=== PATIENT | female | born 1980 | race Caucasian/White ===

== ENCOUNTER → 2016-08-21 | Outpatient (CLI) | payer BC ==
[~2016-08-21] MED LIST: CLAR1TAB2 PO; CYCL10TA PO; FAMO20TA PO; LYRI75CA PO; MAGN400C2 PO; MECL25CH PO; METH1VL IV; MULT1TAB8 PO; NEUR100C PO; PEPC1TAB2 PO; PHEN15CA58 PO; PHEN200T14 PO; PRENTAB55 PO; ROPI1TAB PO; TIZA4CAP3 PO; TRAM50TA2 PO; VESI5TAB PO; VITA100072 PO; VITA200016 PO; VITA400C35 PO; VITA50003 PO; ZOFR4SOL PO
--- NOTE | 2016-08-29 01:16 | ECWPNPC ---
PATIENT NAME: SILAS GUZMÁN : 1980 GENDER: FEMALE VISIT DATE: 08/21/2016 DISCHARGE DATE: 08/21/16 1453 VISIT LOCKED DATE TIME: PHYSICIAN: ASHWINI CHAMPION RESOURCE: ASHWINI CHAMPION REASON FOR APPOINTMENT 1. NECK HISTORY OF PRESENT ILLNESS HISTORY OF PRESENT ILLNESS: HERE FOR F/U OF LEFT NECK PAIN.WAS DOING WELL UNTIL SHE FELL ON ICE 3 WEEKS AGO.REPORTING NEW ONSET OF LBP L>R SINCE FALL.RATING PAIN VAS 7/10. REPORTS NEW ONSET OF LEFT LEG PAIN AND PARATHESIA SINCE FALL.FINDING IT DIFFICULT TO WALK.REPORTS VAGUE EPISODE OF URINE INCONTINENCE X1 AFTER FALL.CURRENTLY USING ZANAFLEX 4 MG TID AND TRAMADOL 50MG Q8H PRN.DISCUSSED TREATMENT OPTIONS. FALL RISK SCREENING: SCREENING :NO FALLS IN THE PAST YEAR CURRENT MEDICATIONS TAKING TYLENOL 500 MG TABLET 2 TABLET NEEDED ORALLY EVERY 6 HRS NEEDED, NOTES: 04-02-16 1000 TAKING VITAMIN B12 1000MCG TABLET 1 TABLET ORALLY ONCE A DAY, NOTES: 04-02-16629 TAKING MECLIZINE HCL 25 MG TABLET 1 TABLET ORALLY EVERY 6HRS NEEDED DIZZINESS, NOTES: 03-31-16 TAKING ROPINIROLE HCL 1 MG TABLET 1 TABLET ORALLY BEFORE BEDTIME, NOTES: 04-01-16 TAKING 28-0.8 MG TABLET 1 ORALLY DAILY, NOTES: 04-02-16629 TAKING PEPCID 40 MG TABLET 1 TABLET ORALLY BID, NOTES: 04-02-16629 TAKING ZOFRAN 4 MG TABLET 1 TAB(S) ORALLY TID PRN, NOTES: 03-31-16 TAKING DICYCLOMINE HCL 20 MG TABLET 1 TABLET ORALLY 3 TIMES A DAY, NOTES: 2 WEEKS AGO TAKING TIZANIDINE HCL 4 MG TABLET 1/2 TO 1 TABLET NEEDED ORALLY Q8H PRN MDD 3, NOTES: 04-02-16 1000 TAKING TRAMADOL HCL 50 MG TABLET 1 TABLET NEEDED ORALLY EVERY 6 HRS PRN MDD2, NOTES: 04-02-16 1000 TAKING CYMBALTA 60 MG CAPSULE DELAYED RELEASE PARTICLES 1 CAPSULE ORALLY ONCE A DAY, NOTES: 04-02-16629 TAKING VITAMIN D-3 5000 UNIT TABLET ORALLY TAKING CETIRIZINE HCL 10 MG TABLET 1 TABLET NEEDED ORALLY ONCE A DAY TAKING SALINE NASAL SPRAY 0.65 % SOLUTION DIRECTED NASALLY FOUR TIMES DAILY DISCONTINUED AMOXICILLIN 500 MG TABLET 2 TABLETS ORALLY ONCE A DAY DISCONTINUED KEFLEX 500 MG CAPSULE 1 CAPSULE ORALLY TWICE A DAY MEDICATION LIST REVIEWED AND RECONCILED WITH THE PATIENT PAST MEDICAL HISTORY CHILDHOOD H/O ASTHMA (NO FLARES SINCE AGE 19) H/O CHOLELITHASIS S/P CHOLECYSTECTOMY H/O KIDNEY STONES OBESITY INFERTILITY H/O VITAMIN B12 DEFICIENCY MARGINAL ULCERS X2 OPTIC NEURITIS BLADDER DYSFUNCTION MISCARRIAGE FIBROMYALGIA ALLERGIES OMEPRAZOLE: ANGIOEDEMA: ALLERGY CLINDAMYCIN HCL: VOMIT, RUBIN IN "POUCH": SIDE EFFECTS SOCIAL HISTORY GENERAL: TOBACCO USE ARE YOU A:NONSMOKER LEARNING BARRIERS / SPECIAL NEEDS ORIENTED TO PLAN OF CARE: PATIENT, PAIN MANAGEMENT PATIENT, ORIENTED TO PLAN OF CARE: PATIENT, PAIN MANAGEMENT PATIENT. NEW PATIENT PAIN DIARY TODAY'S VISITNOTES FROM 0-10, WHAT LEVEL IS YOUR PAIN TODAY?0 PAIN CLINIC PFS, CLERGY, PUBLIC HEALTH REFERRALS PFS REFERRAL NEEDED?NO CLERGY REFERRAL NEEDED?NO PUBLIC HEALTH REFERRAL NEEDED?NO WAS THE PROVIDER NOTIFIED OF ANY PERTINENT INFO?NO PFS REFERRAL NEEDED?NO CLERGY REFERRAL NEEDED?NO PUBLIC HEALTH REFERRAL NEEDED?NO WAS THE PROVIDER NOTIFIED OF ANY PERTINENT INFO?NO REVIEW OF SYSTEMS CONSTITUTIONAL: ANY CHANGE IN YOUR MEDICAL CONDITION? YES FIBROMYALGIA DX'D 07/01/16&NBSP;. RECENT ILLNESS &NBSP;&NBSP; DENIES&NBSP;. CHILLS &NBSP;&NBSP; NO&NBSP;. FEVER &NBSP;&NBSP; NO&NBSP;. WEIGHT LOSS &NBSP;&NBSP; DENIES&NBSP;. INFECTION: DO YOU HAVE NEW INFECTIONS? NO . DO YOU HAVE HISTORY OF MRSA? NO . MUSCULOSKELETAL: ANY NEW PATTERNS OF PAIN OR NUMBNESS? YES PT NOTES NEW PAIN/NUMBNESS LEFT LEG X FEW WKS. . GASTROENTEROLOGY: ANY NEW CHANGE IN BOWEL CONTROL? NO . GENITOURINARY: ANY NEW CHANGE IN BLADDER CONTROL? NO . IS THERE A CHANCE YOU COULD BE ? NO . HEMATOLOGY/LYMPH: DO YOU TAKE ANY BLOOD THINNERS? (FOR EXAMPLE- COUMADIN, PLAVIX, AGGRENOX, PLATEL, PRADAXA, OR XARELTO) NO . WHEN WAS YOUR LAST DOSE? DATE: TIME: . NEUROLOGY: HAVE YOU FALLEN IN THE PAST 6 MONTHS? YES X2/6 MOS. NO ED EVAL. . ANY NEW EXTREMITY NUMBNESS OR WEAKNESS? NO . CARDIOLOGY: DO YOU HAVE A PACEMAKER OR DEFIBRILLATOR? NO . CHEST PAIN DENIES . SHORTNESS OF BREATH DENIES . RESPIRATORY: HAVE YOU BEEN SICK IN THE PAST WEEK? NO . FEVER NO . FLU LIKE SYMPTOMS? NO . COUGH NO, DENIES . SHORTNESS OF BREATH DENIES . INTEGUMENTARY: DO YOU HAVE ANY RASHES OR OPEN SORES? NO . ALLERGIC/IMMUNO: ARE YOU ALLERGIC TO SHELLFISH OR IV DYE? NO . ANY NEW ALLERGIES? NO . PSYCHIATRIC: DO YOU HAVE THOUGHTS OF HURTING YOURSELF OR SOMEONE ELSE? NO . ARE YOU ABUSED, NEGLECTED, OR IN AN UNSAFE ENVIRONMENT? NO . ENDOCRINOLOGY: ARE YOU DIABETIC? NO . OTHER: DO YOU NEED ANY PRESCRIPTIONS? YES TRAMADOL . IF YES, PLEASE LIST: ____ . ANY NEW PROBLEMS WITH YOUR MEDICATIONS? NO . WHEN DID YOU LAST EAT? ____ . WHEN DID YOU LAST DRINK? ____ . WHAT DID YOU LAST DRINK? ____ . NAME OF PERSON DRIVING YOU HOME? ____ . DO YOU HAVE ANY OTHER QUESTIONS OR CONCERNS NO . REVIEWED BY: PROVIDER: ASHWINI VALENZUELA . VITAL SIGNS WT 170 LBS, HT 60 IN, BMI 33.20 INDEX, BP 130/67 MM HG, HR 86 /MIN, RR 16 /MIN, TEMP 98.4 F, OXYGEN SAT % 99, NA INITIALS TL 1406, REVIEWED BY: MLF. EXAMINATION GENERAL EXAMINATION: LUNGS:LUNG SOUNDS ARE CLEAR. HEART:HEART RATE REGULAR. MUSCULOSKELETAL:*, MUSCLE STRENGTH TESTING LOWER EXTREMITIES: 5/5 RIGHT -3/5LEFT, PALPATION: POSITIVE FOR PAIN OVER L/S SPINE. POSITIVE FOR PAIN OVER L/S PARASPINAL L>R.. DIAGNOSTIC: . 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 WITHOUT [id number] PROCEDURE CODES FA211 ESTABILISHED PATIENT [facility] CHARGE DISPOSITION & COMMUNICATION FOLLOW UP SQUEEZE IN F/U NEXT WEEK ELECTRONICALLY SIGNED BY NICOLAS GARCIA ON 08/28/2016 AT 05:10 PM EST DISCLAIMER : THIS IS A VISIT SUMMARY EXTRACTED FROM THE [employer] CHART. IT IS NOT A COPY OF THE [employer] PROGRESS NOTE. GUSTAVOD
== END ==
LOC: M PAIN 14:00
PROVIDERS: ATTEND Nurse Practitioner Family
DX: Z09 Encounter for follow-up examination after completed treatment for conditions other than malignant neoplasm (principal); G89.29 Other chronic pain; M50.20 Other cervical disc displacement, unspecified cervical region; M51.26 Other intervertebral disc displacement, lumbar region; M47.22 Other spondylosis with radiculopathy, cervical region; M79.7 Fibromyalgia; M50.13 Cervical disc disorder with radiculopathy, cervicothoracic region; M47.813 Spondylosis without myelopathy or radiculopathy, cervicothoracic region; M47.814 Spondylosis without myelopathy or radiculopathy, thoracic region; D51.9 Vitamin B12 deficiency anemia, unspecified; E66.9 Obesity, unspecified; Z68.33 Body mass index [BMI] 33.0-33.9, adult; Z88.8 Allergy status to other drugs, medicaments and biological substances; Z79.891 Long term (current) use of opiate analgesic; Z79.899 Other long term (current) drug therapy; Z90.49 Acquired absence of other specified parts of digestive tract; Z98.890 Other specified postprocedural states

== ENCOUNTER → 2016-08-21 | Outpatient (REF) | payer BC ==
[2016-08-21 20:55] LABS: FREE T4 0.96 NG/DL (0.76-1.46)
== END ==
LOC: M SFHCLERA 16:23
PROVIDERS: ATTEND Physician Assistant
DX: R63.5 Abnormal weight gain (principal)

== ENCOUNTER → 2016-08-28 | Outpatient (CLI) | payer BC ==
--- NOTE | 2016-08-29 07:40 | REP ---
MRI LUMBAR SPINE WITHOUT CONTRAST: HISTORY: Back pain. COMPARISON: 11/15/2015 Decreased signal intensity on T2-weighted images is present in the L4-5 and L5-S1 intervertebral discs. The discs are decreased in height. These findings are consistent with disc degeneration. There is no disc bulge or herniation at the L1-2 and L2-3 levels. The nerves exit the neural foramina without compression. A diffuse disc bulge is present at the L3-4 level. There is minimal compression of the thecal sac. The L3 nerves exit the neural foramina without compression. A diffuse disc bulge and small central disc protrusion are present at the L4-5 level. There is minimal compression of the thecal sac. The L4 nerves exit the neural foramina without compression. A diffuse disc bulge and small central disc extrusion are present at the L5-S1 level. The disc extrusion is slightly decreased in size. There is inferior migration of disc material. The disc extrusion abuts the left S1 nerve. There is no thecal sac compression. The L5 nerves exit the neural foramina without compression. The conus medullaris is normal in appearance terminating at the level of the T12-L1 intervertebral disc. Normal signal intensity is present in the lumbar vertebral bodies. IMPRESSION: 1. Diffuse disc bulge at the L3-4 level with minimal thecal sac compression. 2. Diffuse disc bulge and small central disc protrusion at the L4-5 level with minimal thecal sac compression. 3. Diffuse disc bulge and small disc extrusion at the L5-S1 level. The disc extrusion abuts the left S1 nerve. The disc extrusion is slightly decreased in size. There is no other significant change. Signed by Lloyd Graham MD 08/31/2016 08:25 A
== END ==
LOC: M RAD 12:46
PROVIDERS: ATTEND Nurse Practitioner Family
DX: M50.20 Other cervical disc displacement, unspecified cervical region (principal); M51.26 Other intervertebral disc displacement, lumbar region; M51.27 Other intervertebral disc displacement, lumbosacral region

== ENCOUNTER → 2016-09-01 | Outpatient (CLI) | payer BC ==
--- NOTE | 2016-09-02 23:41 | ECWPNPC ---
PATIENT NAME: SILAS GUZMÁN : 1980 GENDER: FEMALE VISIT DATE: 09/01/2016 DISCHARGE DATE: 09/01/16 1551 VISIT LOCKED DATE TIME: PHYSICIAN: ASHWINI CHAMPION RESOURCE: ASHWINI CHAMPION REASON FOR APPOINTMENT 1. FOLLOW UP MRI HISTORY OF PRESENT ILLNESS HISTORY OF PRESENT ILLNESS: HERE TO REVIEW MRI L/S SPINE ORDERED AT LAST VISIT FOR NEW ONSET OF SEVERE LOW BACK PAIN WITH NEW ONSET OF LEFT LEG RADICULAR SYMPTOMS.THIS IS SHOWING L5/S1 DISC PROTRUSION THAT ABUTS L5/S1 NERVE ROUTE ON LEFT SIDE.RATING PAIN VAS 7/10.CONTINUES WITH COMPLAINTS OF CONSTAANT TENDERNESS LEFT LOW BACK WITH INTERMITTENT LEFT POSTERIOR THIGH SHOOTING PAIN.CURRENTLY USING SOMA 350MG AT NIGHT THAT IS HELPFUL FOR SLEEP AND TIZANIDINE AND TRAMADOL PRN DURING DAY WHICH IS EFFECTIVE WITHOUT SIDE EFFECTS.DISCUSSED LESI. FALL RISK SCREENING: SCREENING :NO FALLS IN THE PAST YEAR CURRENT MEDICATIONS TAKING TYLENOL 500 MG TABLET 2 TABLET NEEDED ORALLY EVERY 6 HRS NEEDED TAKING VITAMIN B12 1000MCG TABLET 1 TABLET ORALLY ONCE A DAY TAKING MECLIZINE HCL 25 MG TABLET 1 TABLET ORALLY EVERY 6HRS NEEDED DIZZINESS TAKING ROPINIROLE HCL 1 MG TABLET 1 TABLET ORALLY BEFORE BEDTIME TAKING 28-0.8 MG TABLET 1 ORALLY DAILY TAKING PEPCID 40 MG TABLET 1 TABLET ORALLY BID TAKING ZOFRAN 4 MG TABLET 1 TAB(S) ORALLY TID PRN TAKING DICYCLOMINE HCL 20 MG TABLET 1 TABLET ORALLY 3 TIMES A DAY TAKING VITAMIN D-3 5000 UNIT TABLET ORALLY TAKING CETIRIZINE HCL 10 MG TABLET 1 TABLET NEEDED ORALLY ONCE A DAY TAKING SALINE NASAL SPRAY 0.65 % SOLUTION DIRECTED NASALLY FOUR TIMES DAILY TAKING TIZANIDINE HCL 4 MG TABLET 1/2 TO 1 TABLET NEEDED ORALLY Q8H PRN MDD 3 TAKING TRAMADOL HCL 50 MG TABLET 1 TABLET NEEDED ORALLY EVERY 6 HRS PRN MDD2 TAKING CYMBALTA 60 MG CAPSULE DELAYED RELEASE PARTICLES 1 CAPSULE ORALLY ONCE A DAY TAKING SOMA 350 MG TABLET 1 ORALLY BEFORE BEDTIME MEDICATION LIST REVIEWED AND RECONCILED WITH THE PATIENT PAST MEDICAL HISTORY CHILDHOOD H/O ASTHMA (NO FLARES SINCE AGE 19) H/O CHOLELITHASIS S/P CHOLECYSTECTOMY H/O KIDNEY STONES OBESITY INFERTILITY H/O VITAMIN B12 DEFICIENCY MARGINAL ULCERS X2 OPTIC NEURITIS BLADDER DYSFUNCTION MISCARRIAGE FIBROMYALGIA ALLERGIES OMEPRAZOLE: ANGIOEDEMA: ALLERGY CLINDAMYCIN HCL: VOMIT, RUBIN IN "POUCH": SIDE EFFECTS SOCIAL HISTORY GENERAL: TOBACCO USE ARE YOU A:NONSMOKER LEARNING BARRIERS / SPECIAL NEEDS ORIENTED TO PLAN OF CARE: PATIENT, PAIN MANAGEMENT PATIENT, ORIENTED TO PLAN OF CARE: PATIENT, PAIN MANAGEMENT PATIENT. NEW PATIENT PAIN DIARY TODAY'S VISITNOTES FROM 0-10, WHAT LEVEL IS YOUR PAIN TODAY?0 PAIN CLINIC PFS, CLERGY, PUBLIC HEALTH REFERRALS PFS REFERRAL NEEDED?NO CLERGY REFERRAL NEEDED?NO PUBLIC HEALTH REFERRAL NEEDED?NO WAS THE PROVIDER NOTIFIED OF ANY PERTINENT INFO?NO PFS REFERRAL NEEDED?NO CLERGY REFERRAL NEEDED?NO PUBLIC HEALTH REFERRAL NEEDED?NO WAS THE PROVIDER NOTIFIED OF ANY PERTINENT INFO?NO REVIEW OF SYSTEMS CONSTITUTIONAL: ANY CHANGE IN YOUR MEDICAL CONDITION? NO . CHILLS NO . FEVER NO . INFECTION: DO YOU HAVE NEW INFECTIONS? NO . DO YOU HAVE HISTORY OF MRSA? NO . MUSCULOSKELETAL: ANY NEW PATTERNS OF PAIN OR NUMBNESS? NO . GASTROENTEROLOGY: ANY NEW CHANGE IN BOWEL CONTROL? NO . GENITOURINARY: ANY NEW CHANGE IN BLADDER CONTROL? NO . IS THERE A CHANCE YOU COULD BE ? NO . HEMATOLOGY/LYMPH: DO YOU TAKE ANY BLOOD THINNERS? (FOR EXAMPLE- COUMADIN, PLAVIX, AGGRENOX, PLATEL, PRADAXA, OR XARELTO) NO . WHEN WAS YOUR LAST DOSE? DATE: TIME: . NEUROLOGY: HAVE YOU FALLEN IN THE PAST 6 MONTHS? NO . ANY NEW EXTREMITY NUMBNESS OR WEAKNESS? NO . CARDIOLOGY: DO YOU HAVE A PACEMAKER OR DEFIBRILLATOR? NO . RESPIRATORY: HAVE YOU BEEN SICK IN THE PAST WEEK? NO . FEVER NO . FLU LIKE SYMPTOMS? NO . COUGH NO . INTEGUMENTARY: DO YOU HAVE ANY RASHES OR OPEN SORES? NO . ALLERGIC/IMMUNO: ARE YOU ALLERGIC TO SHELLFISH OR IV DYE? NO . ANY NEW ALLERGIES? NO . PSYCHIATRIC: DO YOU HAVE THOUGHTS OF HURTING YOURSELF OR SOMEONE ELSE? NO . ARE YOU ABUSED, NEGLECTED, OR IN AN UNSAFE ENVIRONMENT? NO . ENDOCRINOLOGY: ARE YOU DIABETIC? NO . OTHER: DO YOU NEED ANY PRESCRIPTIONS? NO . IF YES, PLEASE LIST: ____ . ANY NEW PROBLEMS WITH YOUR MEDICATIONS? NO . WHEN DID YOU LAST EAT? ____ . WHEN DID YOU LAST DRINK? ____ . WHAT DID YOU LAST DRINK? ____ . NAME OF PERSON DRIVING YOU HOME? ____ . DO YOU HAVE ANY OTHER QUESTIONS OR CONCERNS NO . REVIEWED BY: PROVIDER: ASHWINI VALENZUELA . VITAL SIGNS WT 177 LBS, HT 60 IN, BMI 34.56 INDEX, BP 107/68 MM HG, HR 86 /MIN, RR 16 /MIN, TEMP 97.2 F, OXYGEN SAT % 100, SAFE IN ENV? (Y/N) YES, NA INITIALS TL 1509, REVIEWED BY: KG. EXAMINATION GENERAL EXAMINATION: LUNGS:LUNG SOUNDS ARE CLEAR. HEART:HEART RATE REGULAR. MUSCULOSKELETAL:*, MUSCLE STRENGTH TESTING LOWER EXTREMITIES: 5/5 RIGHT -3/5LEFT, PALPATION: POSITIVE FOR PAIN OVER L/S SPINE. POSITIVE FOR PAIN OVER L/S PARASPINAL L>R.SPECIFIC POINT TENDERNESS OVER LEFT SIJ.. DIAGNOSTIC:MRI L/S SPINE 08-28-16-REVIEWED.. ASSESSMENTS PROTRUDED LUMBAR DISC - M51.26 (PRIMARY) RADICULAR PAIN OF LEFT LOWER EXTREMITY - M54.10 TREATMENT PROTRUDED LUMBAR DISC CONTINUE TIZANIDINE HCL TABLET, 4 MG, 1/2 TO 1 TABLET NEEDED, ORALLY, Q8H PRN MDD 3 CONTINUE TRAMADOL HCL TABLET, 50 MG, 1 TABLET NEEDED, ORALLY, EVERY 6 HRS PRN MDD2 CONTINUE SOMA TABLET, 350 MG, 1, ORALLY, BEFORE BEDTIME CAUDAL/LUMBAR EPIDURAL PROCEDURE CODES FA211 ESTABILISHED PATIENT [facility] FACILITY CHARGE DISPOSITION & COMMUNICATION FOLLOW UP 2WK POST (REASON: LESI L4/5-L5/S1) ELECTRONICALLY SIGNED BY NICOLAS GARCIA ON 09/02/2016 AT 01:56 PM EST DISCLAIMER : THIS IS A VISIT SUMMARY EXTRACTED FROM THE [employer] CHART. IT IS NOT A COPY OF THE [employer] PROGRESS NOTE. MTDD
== END ==
LOC: M PAIN 15:00
PROVIDERS: ATTEND Nurse Practitioner Family
DX: Z09 Encounter for follow-up examination after completed treatment for conditions other than malignant neoplasm (principal); G89.29 Other chronic pain; M51.26 Other intervertebral disc displacement, lumbar region; E53.8 Deficiency of other specified B group vitamins; M79.7 Fibromyalgia; E66.9 Obesity, unspecified; Z68.34 Body mass index [BMI] 34.0-34.9, adult; Z88.8 Allergy status to other drugs, medicaments and biological substances; Z88.1 Allergy status to other antibiotic agents; Z79.891 Long term (current) use of opiate analgesic; Z79.899 Other long term (current) drug therapy; Z90.49 Acquired absence of other specified parts of digestive tract

== ENCOUNTER → 2016-09-10 | Outpatient (CLI) | payer BC ==
[~2016-09-10] MED LIST changes: +BUPIVACAINE HCL 0.25% 30 ML VIAL As Ordered ONE; +ISOVUE-M 300 61% 15ML VIAL (Q9967) As Ordered ONE; +LIDOCAINE 1% SDV INJ 30 ML VIAL As Ordered ONE; +TRIAMCINOLONE ACETONIDE SUSP 40 MG/ML VIAL (J3301) As Ordered ONE; +diazePAM 5 MG TAB As Ordered ONE; +methylPREDNISolone SUSP 40 MG/ML (DEPO-medrol) VIAL (J1030) As Ordered ONE; +oxyCODONE 5MG TAB As Ordered ONE
--- NOTE | 2016-09-11 18:57 | REP ---
FLUOROSCOPIC GUIDED SPINAL INJECTION: REASON: Pain. There is a needle seen at the L5-S1 level just to the right of midline. Fluoroscopy was 9 seconds. Signed by Demarcus Moser DO 09/11/2016 07:05 P
--- NOTE | 2016-09-19 23:18 | ECWPNPC ---
PATIENT NAME: SILAS GUZMÁN : 1980 GENDER: FEMALE VISIT DATE: 09/10/2016 DISCHARGE DATE: 09/10/16 1451 VISIT LOCKED DATE TIME: PHYSICIAN: CHRISTIANE DARBY RESOURCE: CHRISTIANE DARBY REASON FOR APPOINTMENT 1. SIJ HISTORY OF PRESENT ILLNESS HISTORY OF PRESENT ILLNESS: PAIN THE PATIENT DESCRIBES THE PAIN... FALL RISK SCREENING: SCREENING :NO FALLS IN THE PAST YEAR CURRENT MEDICATIONS TAKING TYLENOL 500 MG TABLET 2 TABLET NEEDED ORALLY EVERY 6 HRS NEEDED, NOTES: 09-10-16799 TAKING VITAMIN B12 1000MCG TABLET 1 TABLET ORALLY ONCE A DAY, NOTES: 09-10-16599 TAKING MECLIZINE HCL 25 MG TABLET 1 TABLET ORALLY EVERY 6HRS NEEDED DIZZINESS, NOTES: NONE TAKING ROPINIROLE HCL 1 MG TABLET 1 TABLET ORALLY BEFORE BEDTIME, NOTES: 09-09-162199 TAKING 28-0.8 MG TABLET 1 ORALLY DAILY, NOTES: 09-10-16599 TAKING PEPCID 40 MG TABLET 1 TABLET ORALLY BID, NOTES: 09-10-16599 TAKING ZOFRAN 4 MG TABLET 1 TAB(S) ORALLY TID PRN, NOTES: WEEK TAKING DICYCLOMINE HCL 20 MG TABLET 1 TABLET ORALLY 3 TIMES A DAY, NOTES: WEEK TAKING VITAMIN D-3 5000 UNIT TABLET ORALLY , NOTES: 09-10-16599 TAKING CETIRIZINE HCL 10 MG TABLET 1 TABLET NEEDED ORALLY ONCE A DAY, NOTES: WEEK TAKING SALINE NASAL SPRAY 0.65 % SOLUTION DIRECTED NASALLY FOUR TIMES DAILY, NOTES: NONE TAKING CYMBALTA 60 MG CAPSULE DELAYED RELEASE PARTICLES 1 CAPSULE ORALLY ONCE A DAY, NOTES: 09-09-162099 TAKING TIZANIDINE HCL 4 MG TABLET 1/2 TO 1 TABLET NEEDED ORALLY Q8H PRN MDD 3, NOTES: 09-10-16799 TAKING TRAMADOL HCL 50 MG TABLET 1 TABLET NEEDED ORALLY EVERY 6 HRS PRN MDD2, NOTES: 09-10-16799 TAKING SOMA 350 MG TABLET 1 ORALLY BEFORE BEDTIME, NOTES: 09-09-162099 MEDICATION LIST REVIEWED AND RECONCILED WITH THE PATIENT PAST MEDICAL HISTORY CHILDHOOD H/O ASTHMA (NO FLARES SINCE AGE 19) H/O CHOLELITHASIS S/P CHOLECYSTECTOMY H/O KIDNEY STONES OBESITY INFERTILITY H/O VITAMIN B12 DEFICIENCY MARGINAL ULCERS X2 OPTIC NEURITIS BLADDER DYSFUNCTION MISCARRIAGE FIBROMYALGIA ALLERGIES OMEPRAZOLE: ANGIOEDEMA: ALLERGY CLINDAMYCIN HCL: VOMIT, RUBIN IN "POUCH": SIDE EFFECTS SOCIAL HISTORY GENERAL: TOBACCO USE ARE YOU A:NONSMOKER LEARNING BARRIERS / SPECIAL NEEDS ORIENTED TO PLAN OF CARE: PATIENT, PAIN MANAGEMENT PATIENT, ORIENTED TO PLAN OF CARE: PATIENT, PAIN MANAGEMENT PATIENT. NEW PATIENT PAIN DIARY TODAY'S VISITNOTES FROM 0-10, WHAT LEVEL IS YOUR PAIN TODAY?0 PAIN CLINIC PFS, CLERGY, PUBLIC HEALTH REFERRALS PFS REFERRAL NEEDED?NO CLERGY REFERRAL NEEDED?NO PUBLIC HEALTH REFERRAL NEEDED?NO WAS THE PROVIDER NOTIFIED OF ANY PERTINENT INFO?NO PFS REFERRAL NEEDED?NO CLERGY REFERRAL NEEDED?NO PUBLIC HEALTH REFERRAL NEEDED?NO WAS THE PROVIDER NOTIFIED OF ANY PERTINENT INFO?NO REVIEW OF SYSTEMS CONSTITUTIONAL: ANY CHANGE IN YOUR MEDICAL CONDITION? NO . CHILLS NO . FEVER NO . INFECTION: DO YOU HAVE NEW INFECTIONS? NO . DO YOU HAVE HISTORY OF MRSA? NO . MUSCULOSKELETAL: ANY NEW PATTERNS OF PAIN OR NUMBNESS? NO . GASTROENTEROLOGY: ANY NEW CHANGE IN BOWEL CONTROL? NO . GENITOURINARY: ANY NEW CHANGE IN BLADDER CONTROL? NO . IS THERE A CHANCE YOU COULD BE ? NO . HEMATOLOGY/LYMPH: DO YOU TAKE ANY BLOOD THINNERS? (FOR EXAMPLE- COUMADIN, PLAVIX, AGGRENOX, PLATEL, PRADAXA, OR XARELTO) NO . WHEN WAS YOUR LAST DOSE? DATE: TIME: . NEUROLOGY: HAVE YOU FALLEN IN THE PAST 6 MONTHS? YES . ANY NEW EXTREMITY NUMBNESS OR WEAKNESS? NO . CARDIOLOGY: DO YOU HAVE A PACEMAKER OR DEFIBRILLATOR? NO . RESPIRATORY: HAVE YOU BEEN SICK IN THE PAST WEEK? NO . FEVER NO . FLU LIKE SYMPTOMS? NO . COUGH NO . INTEGUMENTARY: DO YOU HAVE ANY RASHES OR OPEN SORES? NO . ALLERGIC/IMMUNO: ARE YOU ALLERGIC TO SHELLFISH OR IV DYE? NO . ANY NEW ALLERGIES? NO . PSYCHIATRIC: DO YOU HAVE THOUGHTS OF HURTING YOURSELF OR SOMEONE ELSE? NO . ARE YOU ABUSED, NEGLECTED, OR IN AN UNSAFE ENVIRONMENT? NO . ENDOCRINOLOGY: ARE YOU DIABETIC? NO . OTHER: DO YOU NEED ANY PRESCRIPTIONS? NO . IF YES, PLEASE LIST: ____ . ANY NEW PROBLEMS WITH YOUR MEDICATIONS? NO . WHEN DID YOU LAST EAT? 09-09-161999 . WHEN DID YOU LAST DRINK? 09-10-16 1100 . WHAT DID YOU LAST DRINK? BLACK COFFEE . NAME OF PERSON DRIVING YOU HOME? CHELSI GUZMÁN . DO YOU HAVE ANY OTHER QUESTIONS OR CONCERNS NO . REVIEWED BY: PROVIDER: . VITAL SIGNS WT 177 LBS, HT 60 IN, BMI 34.56 INDEX, BP 106/59 MM HG, HR 79 /MIN, RR 16 /MIN, TEMP 97.6 F, OXYGEN SAT % 96, NA INITIALS TL 1304, REVIEWED BY: CM. ASSESSMENTS INTERVERTEBRAL DISC DISORDERS WITH RADICULOPATHY, LUMBOSACRAL REGION - M51.17 (PRIMARY) PROCEDURES PRE PROCEDURE DIAGNOSIS LUMBOSACRAL RADICULOPATHY, LUMBOSACRAL DISC DISORDER WITH RADICULOPATHY POST PROCEDURE DIAGNOSIS LUMBOSACRAL RADICULOPATHY , LUMBOSACRAL DISC DISORDER WITH RADICULOPATHY PROCEDURE L5-S1 EPIDURAL STEROID INJECTION UNDER FLUOROSCOPIC GUIDANCE SURGEON DR. CHRISTIANE DARBY DIRECTOR ERP NONE ANESTHESIA LOCAL PRE PROCEDURE NOTE THE PATIENT HAS A HISTORY OF CHRONIC LOW BACK PAIN. I EVALUATE THE PATIENT AND REVIEWED THE CHART. I WENT OVER THE RISKS, ALTERNATIVES, AND BENEFITS ASSOCIATED WITH THIS PROCEDURE. THE PATIENT WOULD LIKE TO PROCEED AND GIVE CONSENT TO PERFORMED THE PROCEDURE. THE PATIENT DENIES UNEXPLAINABLE WEIGHT LOSS, FEVER, CHILLS, OR NEW CHANGES IN URINARY OR BOWEL CONTROL. DESCRIPTION OF PROCEDURE THE PATIENT WAS BROUGHT TO THE PROCEDURE ROOM AND PLACED IN THE PRONE POSITION. THE LUMBOSACRAL AREA WAS CLEANED WITH BETADINE SOLUTION AND DRAPED ASEPTICALLY. THE PROCEDURE WAS DONE UNDER STERILE CONDITIONS. I CHECKED LATERALITY AND THE LEVEL WHERE THE PROCEDURE WAS GOING TO BE PERFORMED WITH THE PATIENT AND THE SUPPORTING STAFF AT THE MOMENT OF THE TIME OUT IN THE PROCEDURE ROOM. UNDER FLUOROSCOPIC GUIDANCE, THE TARGET POINT WAS SELECTED AT THE INTERLAMINAR LEVEL OF L5-S1. LIDOCAINE WAS USED TO NUMB THE SKIN AND THE SUBCUTANEOUS TISSUE BELOW IT. EPIDURAL TUOHY NEEDLE, 17-GAUGE, WAS ADVANCED UNDER FLUOROSCOPIC GUIDANCE AND FOLLOWING PATIENT FEEDBACK UNTIL THE EPIDURAL SPACE WAS REACHED, 7 CM DEEP INTO THE SKIN BY THE LOSS OF RESISTANCE TECHNIQUE. ISOVUE M DYE 30%, 0.25 ML, WAS INJECTED SHOWING ADEQUATE SPREAD OF THE DYE. THEN, A SOLUTION OF 3 ML OF NORMAL SALINE WITH DEPO-MEDROL 60 MG WAS INJECTED SLOWLY FOLLOWING PATIENT FEEDBACK. THERE WAS NO EVIDENCE OF BLOOD, PARESTHESIA OR CEREBROSPINAL FLUID DURING THE PROCEDURE. THE PATIENT WAS SENT TO THE RECOVERY ROOM. THE PATIENT WAS MOVING THE EXTREMITIES AND DOING WELL. THERE WAS NO COMPLICATION DURING THE PROCEDURE. FLUOROSCOPY TIME WAS 9 SECONDS. POST PROCEDURE NOTE THE PATIENT WILL BE SEEN IN A FOLLOW UP IN THE NEXT FEW WEEKS. INSTRUCTIONS WERE GIVEN, QUESTIONS WERE ANSWERED, AND THE PATIENT EXPRESSED UNDERSTANDING AND AGREES WITH THE PLAN. INSTRUCTIONS WERE GIVEN, QUESTIONS WERE ANSWERED, PATIENT REPORTS UNDERSTANDING AND AGREES WITH THE PLAN. I, YOHAN MANZANO, DOCUMENTED THE ABOVE INFORMATION ACTING A SCRIBE FOR DR. DARBY. I HAVE REVIEWED THE ABOVE DOCUMENT, WRITTEN BY YOHAN MANZANO SCRIBE AND I VERIFY THAT IT IS ACCURATE. DIAGNOSTIC IMAGING [facility] FLUORO GUIDE SPINE INJECTION (PAIN)[id number] PROCEDURE CODES 42127 LUMBAR/SACRAL W/ IMAGING 6045F RADXPS IN END [id number] PXD DISPOSITION & COMMUNICATION FOLLOW UP 3 WEEKS ELECTRONICALLY SIGNED BY CHRISTIANE DARBY MD ON 09/19/2016 AT 08:40 PM EDT DISCLAIMER : THIS IS A VISIT SUMMARY EXTRACTED FROM THE [employer] CHART. IT IS NOT A COPY OF THE [employer] PROGRESS NOTE. MTDD
== END ==
LOC: M PAIN 13:00
PROVIDERS: ATTEND Anesthesiology
DX: G89.29 Other chronic pain (principal); M51.17 Intervertebral disc disorders with radiculopathy, lumbosacral region; Z90.49 Acquired absence of other specified parts of digestive tract; E66.9 Obesity, unspecified; Z68.34 Body mass index [BMI] 34.0-34.9, adult; M79.7 Fibromyalgia; Z88.1 Allergy status to other antibiotic agents; Z88.8 Allergy status to other drugs, medicaments and biological substances; Z79.891 Long term (current) use of opiate analgesic; Z79.899 Other long term (current) drug therapy
CPT/HCPCS: 62323; J1030; Q9967

== ENCOUNTER → 2016-09-24 | Outpatient (CLI) | payer BC ==
[~2016-09-24] MED LIST changes: -BUPIVACAINE HCL 0.25% 30 ML VIAL As Ordered ONE; -ISOVUE-M 300 61% 15ML VIAL (Q9967) As Ordered ONE; -LIDOCAINE 1% SDV INJ 30 ML VIAL As Ordered ONE; -TRIAMCINOLONE ACETONIDE SUSP 40 MG/ML VIAL (J3301) As Ordered ONE; -diazePAM 5 MG TAB As Ordered ONE; -methylPREDNISolone SUSP 40 MG/ML (DEPO-medrol) VIAL (J1030) As Ordered ONE; -oxyCODONE 5MG TAB As Ordered ONE
--- NOTE | 2016-09-30 02:17 | ECWPNPC ---
PATIENT NAME: SILAS GUZMÁN : 1980 GENDER: FEMALE VISIT DATE: 09/24/2016 DISCHARGE DATE: 09/24/16 1609 VISIT LOCKED DATE TIME: PHYSICIAN: ASHWINI CHAMPION RESOURCE: ASHWINI CHAMPION REASON FOR APPOINTMENT 1. POST PRODEDURE HISTORY OF PRESENT ILLNESS HISTORY OF PRESENT ILLNESS: HERE FOR POST PROCEDURE F/U.HAD LESI ON 09-10-16.REPORTS NO RELIEF POST PROCEDURE.RATING PAIN VAS 7/10.PAIN IS ENTIRE BACK AND LEFT LEG.DESCRIBES PAIN CONSTANT BURNING AND SHARP PAIN.IN OBVIOUS DISCOMFORT.WALKING WITH ANTALGIC GAIT FAVORING LEFT LEG.DENIES ANYMORE EPISODES OF URINARY OR BOWEL INCONTINENCE. PAIN THE PATIENT DESCRIBES THE PAIN... FALL RISK SCREENING: SCREENING :NO FALLS IN THE PAST YEAR CURRENT MEDICATIONS TAKING TYLENOL 500 MG TABLET 2 TABLET NEEDED ORALLY EVERY 6 HRS NEEDED TAKING VITAMIN B12 1000MCG TABLET 1 TABLET ORALLY ONCE A DAY TAKING MECLIZINE HCL 25 MG TABLET 1 TABLET ORALLY EVERY 6HRS NEEDED DIZZINESS TAKING ROPINIROLE HCL 1 MG TABLET 1 TABLET ORALLY BEFORE BEDTIME TAKING 28-0.8 MG TABLET 1 ORALLY DAILY TAKING PEPCID 40 MG TABLET 1 TABLET ORALLY BID TAKING ZOFRAN 4 MG TABLET 1 TAB(S) ORALLY TID PRN TAKING DICYCLOMINE HCL 20 MG TABLET 1 TABLET ORALLY 3 TIMES A DAY TAKING VITAMIN D-3 5000 UNIT TABLET ORALLY DAILY TAKING CETIRIZINE HCL 10 MG TABLET 1 TABLET NEEDED ORALLY ONCE A DAY TAKING CYMBALTA 60 MG CAPSULE DELAYED RELEASE PARTICLES 1 CAPSULE ORALLY ONCE A DAY TAKING TIZANIDINE HCL 4 MG TABLET 1/2 TO 1 TABLET NEEDED ORALLY Q8H PRN MDD 3 TAKING TRAMADOL HCL 50 MG TABLET 1 TABLET NEEDED ORALLY EVERY 6 HRS PRN MDD2 TAKING SOMA 350 MG TABLET 1 ORALLY BEFORE BEDTIME TAKING NORCO 5-325 MG TABLET 1 TABLET NEEDED ORALLY EVERY 6 HRS MDD=4 TAKING GABAPENTIN 300 MG CAPSULE 1 TABLET ORALLY THREE TIMES A DAY NOT-TAKING SALINE NASAL SPRAY 0.65 % SOLUTION DIRECTED NASALLY FOUR TIMES DAILY, NOTES: NONE NOT-TAKING PREDNISONE 10 MG TABLET 3 TABLET ORALLY ONCE A DAY MEDICATION LIST REVIEWED AND RECONCILED WITH THE PATIENT PAST MEDICAL HISTORY CHILDHOOD H/O ASTHMA (NO FLARES SINCE AGE 19) H/O CHOLELITHASIS S/P CHOLECYSTECTOMY H/O KIDNEY STONES OBESITY INFERTILITY H/O VITAMIN B12 DEFICIENCY MARGINAL ULCERS X2 OPTIC NEURITIS BLADDER DYSFUNCTION MISCARRIAGE FIBROMYALGIA ALLERGIES OMEPRAZOLE: ANGIOEDEMA: ALLERGY CLINDAMYCIN HCL: VOMIT, RUBIN IN "POUCH": SIDE EFFECTS REVIEW OF SYSTEMS CONSTITUTIONAL: ANY CHANGE IN YOUR MEDICAL CONDITION? NO . CHILLS NO . FEVER NO . INFECTION: DO YOU HAVE NEW INFECTIONS? NO . DO YOU HAVE HISTORY OF MRSA? NO . MUSCULOSKELETAL: ANY NEW PATTERNS OF PAIN OR NUMBNESS? YES, PAIN HAS RADIATED TO RIGHT LOW BACK AND PAIN HAS INTENSIFIED DOWN THE LEFT LEG WITH SPASMS . GASTROENTEROLOGY: ANY NEW CHANGE IN BOWEL CONTROL? NO . GENITOURINARY: ANY NEW CHANGE IN BLADDER CONTROL? NO . IS THERE A CHANCE YOU COULD BE ? NO . HEMATOLOGY/LYMPH: DO YOU TAKE ANY BLOOD THINNERS? (FOR EXAMPLE- COUMADIN, PLAVIX, AGGRENOX, PLATEL, PRADAXA, OR XARELTO) NO . WHEN WAS YOUR LAST DOSE? DATE: TIME: . NEUROLOGY: HAVE YOU FALLEN IN THE PAST 6 MONTHS? YES . ANY NEW EXTREMITY NUMBNESS OR WEAKNESS? NO . CARDIOLOGY: DO YOU HAVE A PACEMAKER OR DEFIBRILLATOR? NO . RESPIRATORY: HAVE YOU BEEN SICK IN THE PAST WEEK? NO . FEVER NO . FLU LIKE SYMPTOMS? NO . COUGH NO . INTEGUMENTARY: DO YOU HAVE ANY RASHES OR OPEN SORES? NO . ALLERGIC/IMMUNO: ARE YOU ALLERGIC TO SHELLFISH OR IV DYE? NO . ANY NEW ALLERGIES? NO . PSYCHIATRIC: DO YOU HAVE THOUGHTS OF HURTING YOURSELF OR SOMEONE ELSE? NO . ARE YOU ABUSED, NEGLECTED, OR IN AN UNSAFE ENVIRONMENT? NO . ENDOCRINOLOGY: ARE YOU DIABETIC? NO . OTHER: DO YOU NEED ANY PRESCRIPTIONS? NO . IF YES, PLEASE LIST: ____ . ANY NEW PROBLEMS WITH YOUR MEDICATIONS? NO . WHEN DID YOU LAST EAT? ____ . WHEN DID YOU LAST DRINK? ____ . WHAT DID YOU LAST DRINK? ____ . NAME OF PERSON DRIVING YOU HOME? ____ . DO YOU HAVE ANY OTHER QUESTIONS OR CONCERNS NO . REVIEWED BY: PROVIDER: ASHWINI VALENZUELA . VITAL SIGNS WT 179.4 LBS, HT 60 IN, BMI 35.03 INDEX, BP 129/63 MM HG, HR 87 /MIN, RR 18 /MIN, TEMP 98.8 F, OXYGEN SAT % 99%, NA INITIALS SC 15:26, REVIEWED BY: CS. EXAMINATION GENERAL EXAMINATION: LUNGS:LUNG SOUNDS ARE CLEAR. HEART:HEART RATE REGULAR. MUSCULOSKELETAL:*, MUSCLE STRENGTH TESTING LOWER EXTREMITIES: 5/5 RIGHT -3/5LEFT, PALPATION: POSITIVE FOR PAIN OVER L/S SPINE. POSITIVE FOR PAIN OVER L/S PARASPINAL L>R.SPECIFIC POINT TENDERNESS OVER LEFT SIJ.. DIAGNOSTIC:MRI L/S SPINE 08-28-16-REVIEWED.. ASSESSMENTS PROTRUDED LUMBAR DISC - M51.26 (PRIMARY) RADICULAR PAIN OF LEFT LOWER EXTREMITY - M54.10 TREATMENT PROTRUDED LUMBAR DISC REFERRAL TO:[facility] (P)NEUROLOGICAL SURGERY REASON:STST REFERRAL L4/5-L5/S1 DISC EXTRUSION W SEVERE LEFT S1 NEUROPATHY-AGGREVATED AFTER LESI 09-10-16 PROCEDURE CODES FA211 ESTABILISHED PATIENT [facility] FACILITY CHARGE DISPOSITION & COMMUNICATION FOLLOW UP 4 WEEKS (REASON: REFER [facility] DR [facility]) ELECTRONICALLY SIGNED BY NICOLAS GARCIA ON 09/29/2016 AT 07:02 PM EDT DISCLAIMER : THIS IS A VISIT SUMMARY EXTRACTED FROM THE [employer] CHART. IT IS NOT A COPY OF THE [employer] PROGRESS NOTE. MTDD
== END ==
LOC: M PAIN 15:00
PROVIDERS: ATTEND Nurse Practitioner Family
DX: Z09 Encounter for follow-up examination after completed treatment for conditions other than malignant neoplasm (principal); G89.29 Other chronic pain; M51.26 Other intervertebral disc displacement, lumbar region; M54.10 Radiculopathy, site unspecified; E66.9 Obesity, unspecified; Z68.35 Body mass index [BMI] 35.0-35.9, adult; Z88.8 Allergy status to other drugs, medicaments and biological substances; Z79.891 Long term (current) use of opiate analgesic; Z79.899 Other long term (current) drug therapy; Z86.2 Personal history of diseases of the blood and blood-forming organs and certain disorders involving the immune mechanism; Z90.49 Acquired absence of other specified parts of digestive tract

== ENCOUNTER → 2016-10-23 | Outpatient (CLI) | payer BC ==
--- NOTE | 2016-11-03 01:36 | ECWPNPC ---
PATIENT NAME: SILAS GUZMÁN : 1980 GENDER: FEMALE VISIT DATE: 10/23/2016 DISCHARGE DATE: 10/23/16 1620 VISIT LOCKED DATE TIME: PHYSICIAN: ASHWINI CHAMPION RESOURCE: ASHWINI CHAMPION REASON FOR APPOINTMENT 1. NECK AND BACK HISTORY OF PRESENT ILLNESS HISTORY OF PRESENT ILLNESS: HERE FOR F/U.HAD LESI ON 09-10-16.REPORTED NO RELIEF POST PROCEDURE.RATING PAIN VAS 6/10.PAIN IS ENTIRE BACK AND LEFT LEG.DESCRIBES PAIN CONSTANT BURNING AND SHARP PAIN.REPORTING THAT NECK PAIN WITH RADIATION INTO BILATERAL ARMSL>R HAS RETURNED. HAS RESPONDED TO CERVICAL FACET BLOCKS IN PAST.DENIES ANYMORE EPISODES OF URINARY OR BOWEL INCONTINENCE.SAW CHELSI OSPINA RECENTLY WHO IS RECOMMENDING [facility] INJETION.SAW DR. DOROTEO COLEMAN-NEUROLOGY WHO IS REFERRING TO [facility].CHIEF AREA OF PAIN IS NECK . PAIN THE PATIENT DESCRIBES THE PAIN... CURRENT MEDICATIONS TAKING TYLENOL 500 MG TABLET 2 TABLET NEEDED ORALLY EVERY 6 HRS NEEDED TAKING VITAMIN B12 1000MCG TABLET 1 TABLET ORALLY ONCE A DAY TAKING MECLIZINE HCL 25 MG TABLET 1 TABLET ORALLY EVERY 6HRS NEEDED DIZZINESS TAKING ROPINIROLE HCL 1 MG TABLET 1 TABLET ORALLY BEFORE BEDTIME TAKING 28-0.8 MG TABLET 1 ORALLY DAILY TAKING PEPCID 40 MG TABLET 1 TABLET ORALLY BID TAKING ZOFRAN 4 MG TABLET 1 TAB(S) ORALLY TID PRN TAKING DICYCLOMINE HCL 20 MG TABLET 1 TABLET ORALLY 3 TIMES A DAY TAKING VITAMIN D-3 5000 UNIT TABLET ORALLY DAILY TAKING CETIRIZINE HCL 10 MG TABLET 1 TABLET NEEDED ORALLY ONCE A DAY TAKING CYMBALTA 60 MG CAPSULE DELAYED RELEASE PARTICLES 1 CAPSULE ORALLY ONCE A DAY TAKING TIZANIDINE HCL 4 MG TABLET 1/2 TO 1 TABLET NEEDED ORALLY Q8H PRN MDD 3 TAKING TRAMADOL HCL 50 MG TABLET 1 TABLET NEEDED ORALLY EVERY 6 HRS PRN MDD2 TAKING SOMA 350 MG TABLET 1 ORALLY BEFORE BEDTIME TAKING NORCO 5-325 MG TABLET 1 TABLET NEEDED ORALLY EVERY 6 HRS MDD=4 TAKING GABAPENTIN 300 MG CAPSULE 1 TABLET ORALLY THREE TIMES A DAY NOT-TAKING SALINE NASAL SPRAY 0.65 % SOLUTION DIRECTED NASALLY FOUR TIMES DAILY, NOTES: NONE NOT-TAKING PREDNISONE 10 MG TABLET 3 TABLET ORALLY ONCE A DAY MEDICATION LIST REVIEWED AND RECONCILED WITH THE PATIENT PAST MEDICAL HISTORY CHILDHOOD H/O ASTHMA (NO FLARES SINCE AGE 19) H/O CHOLELITHASIS S/P CHOLECYSTECTOMY H/O KIDNEY STONES OBESITY INFERTILITY H/O VITAMIN B12 DEFICIENCY MARGINAL ULCERS X2 OPTIC NEURITIS BLADDER DYSFUNCTION MISCARRIAGE FIBROMYALGIA ALLERGIES OMEPRAZOLE: ANGIOEDEMA: ALLERGY CLINDAMYCIN HCL: VOMIT, RUBIN IN "POUCH": SIDE EFFECTS VITAL SIGNS WT 175 LBS, HT 60 IN, BMI 34.17 INDEX, BP 125/75 MM HG, HR 105 /MIN, RR 16 /MIN, TEMP 99.1 F, OXYGEN SAT % 100%, NA INITIALS SC 15:10. EXAMINATION GENERAL EXAMINATION: GENERAL APPEARANCE:NO ACUTE DISTRESS, WELL NOURISHED AND HYDRATED. PSYCHAPPROPRIATE MOOD AND AFFECT . HEENT:HEAD: NORMOCEPHALIC, ATRAUMATIC. EYES: PUPILS ARE EQUAL AND REACTIVE TO LIGHT. SCLERA ANICTERIC. CONJUNCTIVA PINK AND NOT INFLAMED. EARS: AURICLES NORMALLY PLACED. EACS CLEAR AND NOT INFLAMED BILATERALLY. TMS HARDEN WITH NO FLUID NOTED BEHIND THEM. NOSE: SYMMETRIC. NO NASAL MUCOSAL EDEMA AND/OR ERYTHEMA. NO NASAL DISCHARGE.. FACE:UNREMARKABLE. ORAL CAVITY:NORMAL. NECK:NO LYMPHADENOPATHY, SUPPLE, NO THYROMEGALLY, . LUNGS:CLEAR TO AUSCULTATION BILATERALLY, NO WHEEZES, RHONCHI, RALES. HEART:NO MURMURS, REGULAR RATE AND RHYTHM. EXTREMITIES:NO CLUBBING, NO EDEMA. DIAGNOSTIC DATA-MRI [id number]. CERVICAL SPINE/NECK: RANGE OF MOTION OF NECK:FULL ROJM NECK WITH COMPLAINTS OF INCREASED NECK PAIN W LATERAL ROTATION.. REFLEXES:2 PLUS BILATERALLY. SENSATIONS:NORMAL BILATERALLY. VERTEBRAL SPINE TENDERNESS:PRESENT ON CERVICAL SPINE. PARASPINAL MUSCLE SPASM:PRESENT ON LEFT > RIGHT SIDE. TRAPEZIUS TENDERNESS:PRESENT ON LEFT > RIGHT SIDE. 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 IT IS NOT A COPY OF THE [employer] PROGRESS NOTE. MTDD
== END ==
LOC: M PAIN 15:00
PROVIDERS: ATTEND Nurse Practitioner Family
DX: G89.29 Other chronic pain (principal); M51.26 Other intervertebral disc displacement, lumbar region; M47.22 Other spondylosis with radiculopathy, cervical region; E66.9 Obesity, unspecified; Z68.34 Body mass index [BMI] 34.0-34.9, adult; D51.0 Vitamin B12 deficiency anemia due to intrinsic factor deficiency; M79.7 Fibromyalgia; Z88.8 Allergy status to other drugs, medicaments and biological substances; Z88.1 Allergy status to other antibiotic agents; Z79.891 Long term (current) use of opiate analgesic; Z79.899 Other long term (current) drug therapy

== ENCOUNTER → 2016-11-05 | Outpatient (CLI) | payer BC ==
[~2016-11-05] MED LIST changes: +BUPIVACAINE HCL 0.25% 30 ML VIAL As Ordered ONE; +ISOVUE-M 300 61% 15ML VIAL (Q9967) As Ordered ONE; +LIDOCAINE 1% SDV INJ 30 ML VIAL As Ordered ONE; +TRIAMCINOLONE ACETONIDE SUSP 40 MG/ML VIAL (J3301) As Ordered ONE; +diazePAM 5 MG TAB As Ordered ONE; +oxyCODONE 5MG TAB As Ordered ONE
--- NOTE | 2016-11-05 18:17 | REP ---
FACET BLOCK: The images were reviewed with Dr. Fowler. The patient has a history of neck pain. The portable C-ARM was provided in the OR for Dr. Montalvo for fluoroscopic guidance. 1 intraoperative fluoroscopic spot film was obtained for needle placement verification for left cervical facet injection. The film is on the PACs system and are available for review. 8 seconds of fluoroscopic time was utilized for this procedure. Reviewed by DONN Goins 11/06/2016 08:28 AEdited and Signed by Drew Fowler MD 11/06/2016 05:08 P
--- NOTE | 2016-11-10 01:02 | ECWPNPC ---
PATIENT NAME: SILAS GUZMÁN : 1980 GENDER: FEMALE VISIT DATE: 11/05/2016 DISCHARGE DATE: 11/05/16 1420 VISIT LOCKED DATE TIME: PHYSICIAN: CHRISTIANE DARBY RESOURCE: CHRISTIANE DARBY REASON FOR APPOINTMENT 1. LEFT CERVICAL FACET HISTORY OF PRESENT ILLNESS HISTORY OF PRESENT ILLNESS: PAIN THE PATIENT DESCRIBES THE PAIN... FALL RISK SCREENING: SCREENING :NO FALLS IN THE PAST YEAR CURRENT MEDICATIONS TAKING TYLENOL 500 MG TABLET 2 TABLET NEEDED ORALLY EVERY 6 HRS NEEDED, NOTES: 11-04-162099 TAKING VITAMIN B12 1000MCG TABLET 1 TABLET ORALLY ONCE A DAY, NOTES: 11-04-16 AM TAKING MECLIZINE HCL 25 MG TABLET 1 TABLET ORALLY EVERY 6HRS NEEDED DIZZINESS, NOTES: WEEK TAKING ROPINIROLE HCL 1 MG TABLET 1 TABLET ORALLY BEFORE BEDTIME, NOTES: 11-04-162099 TAKING 28-0.8 MG TABLET 1 ORALLY DAILY, NOTES: 11-04-16 TAKING PEPCID 40 MG TABLET 1 TABLET ORALLY BID, NOTES: 11-05-16 0700 TAKING ZOFRAN 4 MG TABLET 1 TAB(S) ORALLY TID PRN, NOTES: 4 DAYS AGO TAKING DICYCLOMINE HCL 20 MG TABLET 1 TABLET ORALLY 3 TIMES A DAY, NOTES: NONE TAKING VITAMIN D-3 5000 UNIT TABLET ORALLY DAILY, NOTES: 11-04-16 TAKING CETIRIZINE HCL 10 MG TABLET 1 TABLET NEEDED ORALLY ONCE A DAY, NOTES: NONE TAKING CYMBALTA 60 MG CAPSULE DELAYED RELEASE PARTICLES 1 CAPSULE ORALLY ONCE A DAY, NOTES: 11-04-16 TAKING TIZANIDINE HCL 4 MG TABLET 1/2 TO 1 TABLET NEEDED ORALLY Q8H PRN MDD 3, NOTES: 11-04-162099 TAKING TRAMADOL HCL 50 MG TABLET 1 TABLET NEEDED ORALLY EVERY 6 HRS PRN MDD2, NOTES: 11-04-162099 TAKING SOMA 350 MG TABLET 1 ORALLY BEFORE BEDTIME, NOTES: NONE RECENT TAKING NORCO 5-325 MG TABLET 1 TABLET NEEDED ORALLY EVERY 6 HRS MDD=4, NOTES: 11-04-161399 TAKING GABAPENTIN 300 MG CAPSULE 1 TABLET ORALLY THREE TIMES A DAY, NOTES: 11-04-162099 TAKING TOPAMAX 25 MG TABLET 1 TABLET ORALLY TWICE A DAY, NOTES: 11-04-162099 TAKING PHENTERMINE HCL 37.5 MG CAPSULE ORALLY DAILY, NOTES: 11-05-16 0700 NOT-TAKING SALINE NASAL SPRAY 0.65 % SOLUTION DIRECTED NASALLY FOUR TIMES DAILY, NOTES: NONE DISCONTINUED PREDNISONE 10 MG TABLET 3 TABLET ORALLY ONCE A DAY MEDICATION LIST REVIEWED AND RECONCILED WITH THE PATIENT PAST MEDICAL HISTORY CHILDHOOD H/O ASTHMA (NO FLARES SINCE AGE 19) H/O CHOLELITHASIS S/P CHOLECYSTECTOMY H/O KIDNEY STONES OBESITY INFERTILITY H/O VITAMIN B12 DEFICIENCY MARGINAL ULCERS X2 OPTIC NEURITIS BLADDER DYSFUNCTION MISCARRIAGE FIBROMYALGIA ALLERGIES OMEPRAZOLE: ANGIOEDEMA: ALLERGY CLINDAMYCIN HCL: VOMIT, RUBIN IN "POUCH": SIDE EFFECTS REVIEW OF SYSTEMS CONSTITUTIONAL: ANY CHANGE IN YOUR MEDICAL CONDITION? NO . CHILLS NO . FEVER NO . INFECTION: DO YOU HAVE NEW INFECTIONS? NO . DO YOU HAVE HISTORY OF MRSA? NO . MUSCULOSKELETAL: ANY NEW PATTERNS OF PAIN OR NUMBNESS? NO . GASTROENTEROLOGY: ANY NEW CHANGE IN BOWEL CONTROL? NO . GENITOURINARY: ANY NEW CHANGE IN BLADDER CONTROL? NO . IS THERE A CHANCE YOU COULD BE ? NO . HEMATOLOGY/LYMPH: DO YOU TAKE ANY BLOOD THINNERS? (FOR EXAMPLE- COUMADIN, PLAVIX, AGGRENOX, PLATEL, PRADAXA, OR XARELTO) NO . WHEN WAS YOUR LAST DOSE? DATE: TIME: . NEUROLOGY: HAVE YOU FALLEN IN THE PAST 6 MONTHS? NO . ANY NEW EXTREMITY NUMBNESS OR WEAKNESS? NO . CARDIOLOGY: DO YOU HAVE A PACEMAKER OR DEFIBRILLATOR? NO . RESPIRATORY: HAVE YOU BEEN SICK IN THE PAST WEEK? NO . FEVER NO . FLU LIKE SYMPTOMS? NO . COUGH NO . INTEGUMENTARY: DO YOU HAVE ANY RASHES OR OPEN SORES? NO . ALLERGIC/IMMUNO: ARE YOU ALLERGIC TO SHELLFISH OR IV DYE? NO . ANY NEW ALLERGIES? NO . PSYCHIATRIC: DO YOU HAVE THOUGHTS OF HURTING YOURSELF OR SOMEONE ELSE? NO . ARE YOU ABUSED, NEGLECTED, OR IN AN UNSAFE ENVIRONMENT? NO . ENDOCRINOLOGY: ARE YOU DIABETIC? NO . OTHER: DO YOU NEED ANY PRESCRIPTIONS? NO . IF YES, PLEASE LIST: ____ . ANY NEW PROBLEMS WITH YOUR MEDICATIONS? NO . WHEN DID YOU LAST EAT? 11-04-16 8PM . WHEN DID YOU LAST DRINK? 11-05-16 9:30 AM . WHAT DID YOU LAST DRINK? COFFEE . NAME OF PERSON DRIVING YOU HOME? CHELSI RAMIREZ . DO YOU HAVE ANY OTHER QUESTIONS OR CONCERNS NO . REVIEWED BY: PROVIDER: . VITAL SIGNS WT 177.0 LBS, HT 60 IN, BMI 34.56 INDEX, BP 142/81 MM HG, HR 99 /MIN, RR 16 /MIN, TEMP 98.8 F, OXYGEN SAT % 98%, NA INITIALS TL 1147, REVIEWED BY: CM. ASSESSMENTS SPONDYLOSIS WITHOUT MYELOPATHY OR RADICULOPATHY, CERVICAL REGION - M47.812 (PRIMARY) SPONDYLOSIS WITHOUT MYELOPATHY OR RADICULOPATHY, CERVICOTHORACIC REGION - M47.813 PROCEDURES PN CERVICAL FACET BLOCK LOW BILATERAL CERVICAL PRE PROCEDURE DIAGNOSIS CERVICAL SPONDYLOSIS, CERVICOTHORACIC SPONDYLOSIS POST PROCEDURE DIAGNOSIS CERVICAL SPONDYLOSIS, CERVICOTHORACIC SPONDYLOSIS PROCEDURE LEFT C6-C7 AND C7-T1 CERVICAL FACET BLOCK THERAPEUTIC SURGEON DR. CHRISTIANE DARBY SMELTER OPERATOR NONE ANESTHESIA LOCAL PRE PROCEDURE NOTE THE PATIENT HAS HISTORY OF CHRONIC CERVICAL PAIN. I EVALUATE THE PATIENT AND REVIEWED THE CHART. I WENT OVER THE RISKS, ALTERNATIVES, AND BENEFITS ASSOCIATED WITH THIS PROCEDURE. THE PATIENT WOULD LIKE TO PROCEED AND GIVE CONSENT TO PERFORMED THE PROCEDURE. THE PATIENT DENIES UNEXPLAINABLE WEIGHT LOSS, FEVER, CHILLS, OR NEW CHANGES IN URINARY OR BOWEL CONTROL. DESCRIPTION OF PROCEDURE THE PATIENT WAS BROUGHT TO THE PROCEDURE ROOM AND PLACED IN THE PRONE POSITION. THE CERVICOTHORACIC AREA WAS CLEANED WITH CHLORAPREP SOLUTION AND DRAPED ASEPTICALLY. THE PROCEDURE WAS DONE UNDER STERILE CONDITIONS. I CHECKED LATERALITY AND THE LEVEL WHERE THE PROCEDURE WAS GOING TO BE PERFORMED WITH THE PATIENT AND THE SUPPORTING STAFF AT THE MOMENT OF THE TIME OUT IN THE PROCEDURE ROOM. UNDER FLUOROSCOPIC GUIDANCE, TARGET POINT WAS SELECTED AT THE LEFT C6-C7 AND C7-T1 CERVICAL FACET JOINT. TARGET POINTS WERE SELECTED AFTER LATERAL ROTATION AND TILT OF THE MAGNIFIER OF THE C-ARM. LIDOCAINE 0.5% WAS USED TO NUMB THE SKIN AND THE SUBCUTANEOUS TISSUE BELOW IT. SPINAL NEEDLES, 22-GAUGE, WERE ADVANCED UNDER FLUOROSCOPIC GUIDANCE AND FOLLOWING PATIENT FEEDBACK UNTIL THE TARGETS WERE TOUCHED. THE POSITION OF THE NEEDLES WAS VERIFIED WITH AP AND LATERAL VIEWS. AFTER PROPER POSITION OF THE NEEDLES WAS ACHIEVED, ISOVUE M DYE 30, 0.1 ML WAS INJECTED SHOWING SPREAD OF THE DYE. THEN A SOLUTION OF 0.9 ML OF BUPIVACAINE 0.125% AND KENALOG 10 MG WAS INJECTED AT EACH SITE. THERE WAS NO EVIDENCE OF BLOOD, PARESTHESIA OR CEREBROSPINAL FLUID DURING THE PROCEDURE. THE PATIENT WAS SENT TO THE RECOVERY ROOM. THE PATIENT WAS MOVING THE EXTREMITIES AND DOING WELL. THERE WAS NO COMPLICATION DURING THE PROCEDURE. FLUOROSCOPY TIME WAS 8 SECONDS POST PROCEDURE NOTE THE PATIENT WILL BE SEEN IN A FOLLOW UP IN THE NEXT FEW WEEKS. INSTRUCTIONS WERE GIVEN, QUESTIONS WERE ANSWERED, AND THE PATIENT EXPRESSED UNDERSTANDING AND AGREES WITH THE PLAN. I, YOHAN MANZANO, DOCUMENTED THE ABOVE INFORMATION ACTING A SCRIBE FOR DR. DARBY. I HAVE REVIEWED THE ABOVE DOCUMENT, WRITTEN BY YOHAN MANZANO SCRIBE AND I VERIFY THAT IT IS [facility] FACET BLOCK (PAIN)[id number] PROCEDURE CODES 05541 INJ PARAVERT F JNT C/T 1 LEV 71602 INJ PARAVERT F JNT C/T 2 LEV 6045F RADXPS IN END [id number] PXD DISPOSITION & COMMUNICATION FOLLOW UP 3 WEEKS ELECTRONICALLY SIGNED BY CHRISTIANE DARBY MD ON 11/09/2016 AT 09:01 PM EDT DISCLAIMER : THIS IS A VISIT SUMMARY EXTRACTED FROM THE [email or web address] CHART. IT IS NOT A COPY OF THE [email or web address] PROGRESS NOTE. MTDD
== END ==
LOC: M PAIN 11:40
PROVIDERS: ATTEND Anesthesiology
DX: G89.29 Other chronic pain (principal); M47.812 Spondylosis without myelopathy or radiculopathy, cervical region; M47.813 Spondylosis without myelopathy or radiculopathy, cervicothoracic region; E66.9 Obesity, unspecified; Z68.34 Body mass index [BMI] 34.0-34.9, adult; D51.0 Vitamin B12 deficiency anemia due to intrinsic factor deficiency; Z88.1 Allergy status to other antibiotic agents; Z88.8 Allergy status to other drugs, medicaments and biological substances; Z79.891 Long term (current) use of opiate analgesic; Z79.899 Other long term (current) drug therapy
CPT/HCPCS: 64490; 64491; J3301; Q9967

== ENCOUNTER → 2016-11-05 | Outpatient (CLI) | payer BC ==
[~2016-11-05] MED LIST changes: -BUPIVACAINE HCL 0.25% 30 ML VIAL As Ordered ONE; -ISOVUE-M 300 61% 15ML VIAL (Q9967) As Ordered ONE; -LIDOCAINE 1% SDV INJ 30 ML VIAL As Ordered ONE; -TRIAMCINOLONE ACETONIDE SUSP 40 MG/ML VIAL (J3301) As Ordered ONE; -diazePAM 5 MG TAB As Ordered ONE; -oxyCODONE 5MG TAB As Ordered ONE
[2016-11-05 19:22] LABS: ALBUMIN 3.8 GM/DL (3.2-5.2); ALBUMIN/GLOBULIN RATIO 1.23 (1.00-1.93); ALKALINE PHOSPHATASE 74 U/L (45-117); ALT/SGPT 21 U/L (12-78); ANION GAP 10 MEQ/L (8-16); AST/SGOT 18 U/L (15-37); BILIRUBIN,TOTAL 0.4 MG/DL (0.2-1.0); BLOOD UREA NITROGEN 7 MG/DL (7-18); CALCIUM LEVEL 8.8 MG/DL (8.5-10.1); CARBON DIOXIDE LEVEL 26 MEQ/L (21-32); CHLORIDE LEVEL 104 MEQ/L (98-107); CREATININE FOR GFR 0.62 MG/DL (0.55-1.02); FERRITIN 36 NG/ML (8-252); GLOMERULAR FILTRATION RATE > 60.0 (>60); GLUCOSE, FASTING 134 MG/DL (70-105); MAGNESIUM LEVEL 1.9 MG/DL (1.8-2.4); PERCENT SATURATION 16.5 % (13.2-37.4); PHOSPHORUS LEVEL 3.3 MG/DL (2.5-4.9); POTASSIUM SERUM 4.4 MEQ/L (3.5-5.1); SODIUM LEVEL 140 MEQ/L (136-145); TOTAL IRON BINDING CAPACITY 462 UG/DL (250-450); TOTAL PROTEIN 6.9 GM/DL (6.4-8.2)
[2016-11-05 19:31] LABS: BASO % 0.8 % (0.0-1.0); EOS # 0.1 K/mm3 (0.0-0.50); EOS % 1.9 % (0.0-3.0); LARGE UNSTAINED CELL # 0.1 K/mm3 (0.0-0.4); LARGE UNSTAINED CELL % 1.3 % (0.0-4.0); LYMPH # 2.2 K/mm3 (1.5-4.5); MEAN CORPUSCULAR HEMOGLOBIN 31.1 pg (27.0-33.0); MEAN CORPUSCULAR HGB CONC 32.9 g/dl (32.0-36.5); MEAN CORPUSCULAR VOLUME 94.5 fl (80.0-96.0); MONO # 0.4 K/mm3 (0.0-0.8); MONO % 5.2 % (0.0-5.0); NEUTROPHILS # 4.2 K/mm3 (1.8-7.7); NEUTROPHILS % 60.9 % (36.0-66.0); PLATELET COUNT, AUTOMATED 312 k/mm3 (150-450); RED CELL DISTRIBUTION WIDTH 12.4 % (11.5-14.5)
[2016-11-06 11:47] LABS: PRETREATED FOLATE FOR RBCFOL 6.8 NG/ML
== END ==
LOC: M SMT 14:36
PROVIDERS: ATTEND Surgery
DX: K91.2 Postsurgical malabsorption, not elsewhere classified (principal); Z98.84 Bariatric surgery status

== ENCOUNTER → 2016-11-18 | Outpatient (CLI) | payer BC ==
--- NOTE | 2016-12-03 00:05 | ECWPNPC ---
PATIENT NAME: SILAS GUZMÁN : 1980 GENDER: FEMALE VISIT DATE: 11/18/2016 DISCHARGE DATE: 11/18/16 1128 VISIT LOCKED DATE TIME: PHYSICIAN: ASHWINI CHAMPION RESOURCE: ASHWINI CHAMPION REASON FOR APPOINTMENT 1. POST INJ HISTORY OF PRESENT ILLNESS HISTORY OF PRESENT ILLNESS: HERE FOR POST PROCEDURE FOLLOW UP.HAD LEFT CERVICAL FACET BLOCK ON 11-05-16.HAD ONLY A SMALL AMOUNT OF IMPROVEMENT FOR A FEW DAYS THEN PAIN RETURNED TO BASELINE.RATING PAIN VAS 7/10.CONTINUES WITH LOW BACK PAIN.IN THE PROCESS OF SEEING A BACK SURGEON FOR A SECOND OPINION.CONTINUES WITH LEFT SIJ TENDERNESS.CURRENTLY USING TRAMADOL AND TIZANIDINE A COUPLE TIMES PER DAY WITH SOME IMPROVEMENT. PAIN THE PATIENT DESCRIBES THE PAIN... FALL RISK SCREENING: SCREENING :NO FALLS IN THE PAST YEAR CURRENT MEDICATIONS TAKING TYLENOL 500 MG TABLET 2 TABLET NEEDED ORALLY EVERY 6 HRS NEEDED, NOTES: 11-04-162099 TAKING VITAMIN B12 1000MCG TABLET 2 TABLET ORALLY ONCE A DAY, NOTES: 11-04-16 AM TAKING MECLIZINE HCL 25 MG TABLET 1 TABLET ORALLY EVERY 6HRS NEEDED DIZZINESS, NOTES: WEEK TAKING ROPINIROLE HCL 1 MG TABLET 1 TABLET ORALLY BEFORE BEDTIME, NOTES: 11-04-162099 TAKING 28-0.8 MG TABLET 1 ORALLY DAILY, NOTES: 11-04-16 AM TAKING PEPCID 40 MG TABLET 1 TABLET ORALLY BID, NOTES: 11-05-16 0700 TAKING ZOFRAN 4 MG TABLET 1 TAB(S) ORALLY TID PRN, NOTES: 4 DAYS AGO TAKING DICYCLOMINE HCL 20 MG TABLET 1 TABLET ORALLY 3 TIMES A DAY, NOTES: NONE TAKING VITAMIN D-3 5000 UNIT TABLET ORALLY DAILY, NOTES: 11-04-16 AM TAKING CYMBALTA 60 MG CAPSULE DELAYED RELEASE PARTICLES 1 CAPSULE ORALLY ONCE A DAY, NOTES: 11-04-16 AM TAKING TIZANIDINE HCL 4 MG TABLET 1/2 TO 1 TABLET NEEDED ORALLY Q8H PRN MDD 3, NOTES: 11-04-162099 TAKING TRAMADOL HCL 50 MG TABLET 1 TABLET NEEDED ORALLY EVERY 6 HRS PRN MDD2, NOTES: 11-04-162099 TAKING SOMA 350 MG TABLET 1 ORALLY BEFORE BEDTIME, NOTES: NONE RECENT TAKING NORCO 5-325 MG TABLET 1 TABLET NEEDED ORALLY EVERY 6 HRS MDD=4, NOTES: 11-04-16 1400 TAKING GABAPENTIN 300 MG CAPSULE 1 TABLET ORALLY THREE TIMES A DAY, NOTES: 11-04-16 2100 TAKING TOPAMAX 25 MG TABLET 1 TABLET ORALLY TWICE A DAY, NOTES: 11-04-16 2100 TAKING PHENTERMINE HCL 37.5 MG CAPSULE ORALLY DAILY, NOTES: 11-05-16 0700 NOT-TAKING CETIRIZINE HCL 10 MG TABLET 1 TABLET NEEDED ORALLY ONCE A DAY, NOTES: NONE NOT-TAKING SALINE NASAL SPRAY 0.65 % SOLUTION DIRECTED NASALLY FOUR TIMES DAILY, NOTES: NONE MEDICATION LIST REVIEWED AND RECONCILED WITH THE PATIENT PAST MEDICAL HISTORY CHILDHOOD H/O ASTHMA (NO FLARES SINCE AGE 19) H/O CHOLELITHASIS S/P CHOLECYSTECTOMY H/O KIDNEY STONES OBESITY INFERTILITY H/O VITAMIN B12 DEFICIENCY MARGINAL ULCERS X2 OPTIC NEURITIS BLADDER DYSFUNCTION MISCARRIAGE FIBROMYALGIA ALLERGIES OMEPRAZOLE: ANGIOEDEMA: ALLERGY CLINDAMYCIN HCL: VOMIT, RUBIN IN "POUCH": SIDE EFFECTS SURGICAL HISTORY CHOLECYSTECTOMY 2010 GASTRIC BYPASS 2011, 2014 ENDOSCOPIES-MULTIPLE COLONOSCOPY 2016 HOSPITALIZATION/MAJOR DIAGNOSTIC PROCEDURE SEE SURGERIES ULCERS 02/16-03/19 REVIEW OF SYSTEMS CONSTITUTIONAL: ANY CHANGE IN YOUR MEDICAL CONDITION? NO . CHILLS NO . FEVER NO . INFECTION: DO YOU HAVE NEW INFECTIONS? NO . DO YOU HAVE HISTORY OF MRSA? NO . MUSCULOSKELETAL: ANY NEW PATTERNS OF PAIN OR NUMBNESS? NO. PT STATES LEFT CERVICAL FACET DONE 11/2016. PRE PROCEDURE PAIN WAS 7/10. POST PROCEDURE PAIN WAS 4-5/10 GRADUALLY INCREASING IN INTENSITY TO 7/10. . GASTROENTEROLOGY: ANY NEW CHANGE IN BOWEL CONTROL? NO . GENITOURINARY: ANY NEW CHANGE IN BLADDER CONTROL? NO . IS THERE A CHANCE YOU COULD BE ? NO . HEMATOLOGY/LYMPH: DO YOU TAKE ANY BLOOD THINNERS? (FOR EXAMPLE- COUMADIN, PLAVIX, AGGRENOX, PLATEL, PRADAXA, OR XARELTO) NO . WHEN WAS YOUR LAST DOSE? DATE: TIME: . NEUROLOGY: HAVE YOU FALLEN IN THE PAST 6 MONTHS? NO . ANY NEW EXTREMITY NUMBNESS OR WEAKNESS? NO . CARDIOLOGY: DO YOU HAVE A PACEMAKER OR DEFIBRILLATOR? NO . RESPIRATORY: HAVE YOU BEEN SICK IN THE PAST WEEK? NO . FEVER NO . FLU LIKE SYMPTOMS? NO . COUGH NO . INTEGUMENTARY: DO YOU HAVE ANY RASHES OR OPEN SORES? NO . ALLERGIC/IMMUNO: ARE YOU ALLERGIC TO SHELLFISH OR IV DYE? NO . ANY NEW ALLERGIES? NO . PSYCHIATRIC: DO YOU HAVE THOUGHTS OF HURTING YOURSELF OR SOMEONE ELSE? NO . ARE YOU ABUSED, NEGLECTED, OR IN AN UNSAFE ENVIRONMENT? NO . ENDOCRINOLOGY: ARE YOU DIABETIC? NO . OTHER: DO YOU NEED ANY PRESCRIPTIONS? NO . IF YES, PLEASE LIST: ____ . ANY NEW PROBLEMS WITH YOUR MEDICATIONS? NO . WHEN DID YOU LAST EAT? ____ . WHEN DID YOU LAST DRINK? ____ . WHAT DID YOU LAST DRINK? ____ . NAME OF PERSON DRIVING YOU HOME? ____ . DO YOU HAVE ANY OTHER QUESTIONS OR CONCERNS NO . REVIEWED BY: PROVIDER: ASHWINI VALENZUELA . VITAL SIGNS WT 172.0 LBS, HT 60 IN, BMI 33.59 INDEX, BP 144/69 MM HG, HR 114 /MIN, RR 16 /MIN, TEMP 98.1 F, OXYGEN SAT % 96%, SAFE IN ENV? (Y/N) Y, NA INITIALS TL 1040, REVIEWED BY: FREDERICK ELEVATED 114- TL. EXAMINATION GENERAL EXAMINATION: GENERAL APPEARANCE:NO ACUTE DISTRESS, WELL NOURISHED AND HYDRATED. PSYCHAPPROPRIATE MOOD AND AFFECT . HEENT:HEAD: NORMOCEPHALIC, ATRAUMATIC. EYES: PUPILS ARE EQUAL AND REACTIVE TO LIGHT. SCLERA ANICTERIC. CONJUNCTIVA PINK AND NOT INFLAMED. EARS: AURICLES NORMALLY PLACED. EACS CLEAR AND NOT INFLAMED BILATERALLY. TMS HARDEN WITH NO FLUID NOTED BEHIND THEM. NOSE: SYMMETRIC. NO NASAL MUCOSAL EDEMA AND/OR ERYTHEMA. NO NASAL DISCHARGE.. FACE:UNREMARKABLE. ORAL CAVITY:NORMAL. NECK:NO LYMPHADENOPATHY, SUPPLE, NO THYROMEGALLY, . LUNGS:CLEAR TO AUSCULTATION BILATERALLY, NO WHEEZES, RHONCHI, RALES. HEART:NO MURMURS, REGULAR RATE AND RHYTHM. EXTREMITIES:NO CLUBBING, NO EDEMA. DIAGNOSTIC DATA-MRI [id number]. ASSESSMENTS MYALGIA - M79.1 (PRIMARY) SACROILIAC JOINT PAIN - M53.3 CERVICALGIA - M54.2 TREATMENT MYALGIA NOTES: I WILL REQUEST TPI NECK FROM INSURANCEI WILL REQUEST LEFT SIJ FROM INSURANCE. PREVENTIVE MEDICINE PAIN CLINIC TEACHING: PROCEDURE TEACHING ISCUSSED PROCEDURE WITH PT AND ANSWERED ALL QUESTIONS. PT VERBALIZES UNDERSTANDING. PROCEDURE CODES FA211 ESTABILISHED PATIENT [facility] FACILITY CHARGE DISPOSITION & COMMUNICATION FOLLOW UP 2WK POST (REASON: I WILL REQUEST TPI NECK FROM INSURANCE.I WILL REQUEST LEFT SIJ FROM INSURANCE) ELECTRONICALLY SIGNED BY NICOLAS GARCIA ON 12/02/2016 AT 02:38 PM EDT DISCLAIMER : THIS IS A VISIT SUMMARY EXTRACTED FROM THE [employer] CHART. IT IS NOT A COPY OF THE [employer] PROGRESS NOTE. JONATHAN
== END ==
LOC: M PAIN 10:20
PROVIDERS: ATTEND Nurse Practitioner Family
DX: G89.29 Other chronic pain (principal); M79.1 Myalgia; M53.3 Sacrococcygeal disorders, not elsewhere classified; M54.2 Cervicalgia; E66.9 Obesity, unspecified; D51.9 Vitamin B12 deficiency anemia, unspecified; Z88.8 Allergy status to other drugs, medicaments and biological substances; Z88.1 Allergy status to other antibiotic agents; Z79.891 Long term (current) use of opiate analgesic; Z79.899 Other long term (current) drug therapy; Z68.33 Body mass index [BMI] 33.0-33.9, adult

== ENCOUNTER → 2016-12-10 | Outpatient (CLI) | payer BC ==
[~2016-12-10] MED LIST changes: +BUPIVACAINE HCL 0.25% 10 ML VIAL As Ordered ONE; +BUPIVACAINE HCL 0.25% 30 ML VIAL As Ordered ONE; +CYMB60CA3 PO; +GABA-283 PO; +HYDR-3713 PO; +POTA10CA PO; +TRIAMCINOLONE ACETONIDE SUSP 40 MG/ML VIAL (J3301) As Ordered ONE; +ZOFR4TAB3 PO; +diazePAM 5 MG TAB As Ordered ONE; +oxyCODONE 5MG TAB As Ordered ONE
--- NOTE | 2016-12-20 23:49 | ECWPNPC ---
PATIENT NAME: SILAS GUZMÁN : 1980 GENDER: FEMALE VISIT DATE: 12/10/2016 DISCHARGE DATE: 12/10/16 1009 VISIT LOCKED DATE TIME: PHYSICIAN: CHRISTIANE DARBY RESOURCE: CHRISTIANE DARBY REASON FOR APPOINTMENT 1. NECK HISTORY OF PRESENT ILLNESS HISTORY OF PRESENT ILLNESS: PAIN THE PATIENT DESCRIBES THE PAIN... FALL RISK SCREENING: SCREENING :NO FALLS IN THE PAST YEAR CURRENT MEDICATIONS TAKING TYLENOL 500 MG TABLET 2 TABLET NEEDED ORALLY EVERY 6 HRS NEEDED, NOTES: 12-10-16599 TAKING VITAMIN B12 1000MCG TABLET 2 TABLET ORALLY ONCE A DAY, NOTES: 12-10-16599 TAKING MECLIZINE HCL 25 MG TABLET 1 TABLET ORALLY EVERY 6HRS NEEDED DIZZINESS, NOTES: WEEKS AGO TAKING ROPINIROLE HCL 1 MG TABLET 1 TABLET ORALLY BEFORE BEDTIME, NOTES: 12-09-162199 TAKING 28-0.8 MG TABLET 1 ORALLY DAILY, NOTES: 12-10-16599 TAKING PEPCID 40 MG TABLET 1 TABLET ORALLY BID, NOTES: 12-10-16599 TAKING ZOFRAN 4 MG TABLET 1 TAB(S) ORALLY TID PRN, NOTES: WEEKS AGO TAKING VITAMIN D-3 5000 UNIT TABLET ORALLY DAILY, NOTES: 12-10-16599 TAKING CYMBALTA 60 MG CAPSULE DELAYED RELEASE PARTICLES 1 CAPSULE ORALLY ONCE A DAY, NOTES: 12-09-162199 TAKING TIZANIDINE HCL 4 MG TABLET 1/2 TO 1 TABLET NEEDED ORALLY Q8H PRN MDD 3, NOTES: 12-09-162199 TAKING TRAMADOL HCL 50 MG TABLET 1 TABLET NEEDED ORALLY EVERY 6 HRS PRN MDD2, NOTES: 12-09-162199 TAKING NORCO 5-325 MG TABLET 1 TABLET NEEDED ORALLY EVERY 6 HRS MDD=4, NOTES: 12-09-161599 TAKING GABAPENTIN 300 MG CAPSULE 1 TABLET ORALLY THREE TIMES A DAY, NOTES: 12-09-162199 NOT-TAKING DICYCLOMINE HCL 20 MG TABLET 1 TABLET ORALLY 3 TIMES A DAY, NOTES: NONE NOT-TAKING SOMA 350 MG TABLET 1 ORALLY BEFORE BEDTIME, NOTES: NONE RECENT NOT-TAKING CETIRIZINE HCL 10 MG TABLET 1 TABLET NEEDED ORALLY ONCE A DAY, NOTES: NONE NOT-TAKING SALINE NASAL SPRAY 0.65 % SOLUTION DIRECTED NASALLY FOUR TIMES DAILY, NOTES: NONE DISCONTINUED TOPAMAX 25 MG TABLET 1 TABLET ORALLY TWICE A DAY DISCONTINUED PHENTERMINE HCL 37.5 MG CAPSULE ORALLY DAILY MEDICATION LIST REVIEWED AND RECONCILED WITH THE PATIENT PAST MEDICAL HISTORY CHILDHOOD H/O ASTHMA (NO FLARES SINCE AGE 19) H/O CHOLELITHASIS S/P CHOLECYSTECTOMY H/O KIDNEY STONES OBESITY INFERTILITY H/O VITAMIN B12 DEFICIENCY MARGINAL ULCERS X2 OPTIC NEURITIS BLADDER DYSFUNCTION MISCARRIAGE FIBROMYALGIA ALLERGIES OMEPRAZOLE: ANGIOEDEMA: ALLERGY CLINDAMYCIN HCL: VOMIT, RUBIN IN "POUCH": SIDE EFFECTS REVIEW OF SYSTEMS CONSTITUTIONAL: ANY CHANGE IN YOUR MEDICAL CONDITION? NO . CHILLS NO . FEVER NO . INFECTION: DO YOU HAVE NEW INFECTIONS? NO . DO YOU HAVE HISTORY OF MRSA? NO . MUSCULOSKELETAL: ANY NEW PATTERNS OF PAIN OR NUMBNESS? NO . GASTROENTEROLOGY: ANY NEW CHANGE IN BOWEL CONTROL? NO . GENITOURINARY: ANY NEW CHANGE IN BLADDER CONTROL? NO . IS THERE A CHANCE YOU COULD BE ? NO . HEMATOLOGY/LYMPH: DO YOU TAKE ANY BLOOD THINNERS? (FOR EXAMPLE- COUMADIN, PLAVIX, AGGRENOX, PLATEL, PRADAXA, OR XARELTO) NO . WHEN WAS YOUR LAST DOSE? DATE: TIME: . NEUROLOGY: HAVE YOU FALLEN IN THE PAST 6 MONTHS? NO . ANY NEW EXTREMITY NUMBNESS OR WEAKNESS? NO . CARDIOLOGY: DO YOU HAVE A PACEMAKER OR DEFIBRILLATOR? NO . RESPIRATORY: HAVE YOU BEEN SICK IN THE PAST WEEK? NO . FEVER NO . FLU LIKE SYMPTOMS? NO . COUGH NO . INTEGUMENTARY: DO YOU HAVE ANY RASHES OR OPEN SORES? NO . ALLERGIC/IMMUNO: ARE YOU ALLERGIC TO SHELLFISH OR IV DYE? NO . ANY NEW ALLERGIES? NO . PSYCHIATRIC: DO YOU HAVE THOUGHTS OF HURTING YOURSELF OR SOMEONE ELSE? NO . ARE YOU ABUSED, NEGLECTED, OR IN AN UNSAFE ENVIRONMENT? NO . ENDOCRINOLOGY: ARE YOU DIABETIC? NO . OTHER: DO YOU NEED ANY PRESCRIPTIONS? NO . IF YES, PLEASE LIST: ____ . ANY NEW PROBLEMS WITH YOUR MEDICATIONS? NO . WHEN DID YOU LAST EAT? 12-09-16 8PM . WHEN DID YOU LAST DRINK? 12-10-16 0630 . WHAT DID YOU LAST DRINK? COFFEE . NAME OF PERSON DRIVING YOU HOME? CHELSI GUZMÁN . DO YOU HAVE ANY OTHER QUESTIONS OR CONCERNS NO . REVIEWED BY: PROVIDER: . VITAL SIGNS WT 172 LBS, HT 60 IN, BMI 33.59 INDEX, BP 108/59 MM HG, HR 100 /MIN, RR 16 /MIN, TEMP 96.8 F, OXYGEN SAT % 100%, NA INITIALS SC 08:53. ASSESSMENTS MYALGIA - M79.1 (PRIMARY) PROCEDURES PN TRIGGER POINT INJECTION WITH STEROIDS PRE PROCEDURE DIAGNOSIS 1. MYALGIA 2. PAIN AT BILATERAL SHOULDER AREA AND BILATERAL THORACIC AREA POST PROCEDURE DIAGNOSIS 1. MYALGIA 2. PAIN AT BILATERAL SHOULDER AREA AND BILATERAL THORACIC AREA PROCEDURE TRIGGER POINT INJECTION AT BILATERAL SHOULDER AREA AND BILATERAL THORACIC AREA SURGEON DR. CHRISTIANE DARBY PRODUCTION TRAINER NONE ANESTHESIA LOCAL PRE PROCEDURE NOTE THE PATIENT HAS A HISTORY OF CHRONIC PAIN AT THE RIGHT AND LEFT SHOULDER AREA AND RIGHT AND LEFT THORACIC AREA. I EVALUATE THE PATIENT AND REVIEWED THE CHART. THERE IS EVIDENCE OF BANDS OF TISSUE WITH RESTRICTION OF MOVEMENT AND PRESENCE OF TRIGGER POINT AT THE AFFECTED AREA. I WENT OVER THE RISKS, ALTERNATIVES, AND BENEFITS ASSOCIATED WITH THIS PROCEDURE. THE PATIENT WOULD LIKE TO PROCEED AND GIVE CONSENT TO PERFORMED THE PROCEDURE. THE PATIENT DENIES UNEXPLAINABLE WEIGHT LOSS, FEVER, CHILLS, OR NEW CHANGES IN URINARY OR BOWEL CONTROL DESCRIPTION OF PROCEDURE THE PATIENT WAS BROUGHT TO THE PROCEDURE ROOM AND PLACED IN THE SITTING POSITION. THE AREA WAS CLEANED WITH ALCOHOL. THE PROCEDURE WAS DONE USING ASEPTIC STERILE TECHNIQUE. I CHECKED LATERALITY AND THE LEVEL WHERE THE PROCEDURE WAS GOING TO BE PERFORMED WITH THE PATIENT AND THE SUPPORTING STAFF AT THE MOMENT OF THE TIME OUT IN THE PROCEDURE ROOM. USING A 25-GAUGE NEEDLE, TRIGGER POINTS WERE INJECTED AT THE RIGHT AND LEFT SHOULDER AREA AND RIGHT AND LEFT THORACIC AREA WITH A TOTAL OF 40 ML OF BUPIVACAINE 0.25% AND KENALOG 40 MG. THERE WAS NO EVIDENCE OF BLOOD, PARESTHESIA OR CEREBROSPINAL FLUID DURING THE PROCEDURE. THE PATIENT WAS SENT TO THE RECOVERY ROOM. THE PATIENT WAS MOVING THE EXTREMITIES AND DOING WELL. THERE WAS NO COMPLICATION DURING THE PROCEDURE POST PROCEDURE NOTE THE PATIENT WILL BE SEEN IN A FOLLOW UP IN THE NEXT FEW WEEKS. INSTRUCTIONS WERE GIVEN, QUESTIONS WERE ANSWERED, AND THE PATIENT EXPRESSED UNDERSTANDING AND AGREES WITH THE PLAN. I, YOHAN MANZANO, DOCUMENTED THE ABOVE INFORMATION ACTING A SCRIBE FOR DR. DARBY. I HAVE REVIEWED THE ABOVE DOCUMENT, WRITTEN BY YOHAN MANZANO [employer] AND I VERIFY THAT IT IS ACCURATE PROCEDURE CODES 72753 INJECT TRIGGER POINTS 3/> DISPOSITION & COMMUNICATION FOLLOW UP 3 WEEKS ELECTRONICALLY SIGNED BY CHRISTIANE DARBY MD ON 12/20/2016 AT 03:44 PM EDT DISCLAIMER : THIS IS A VISIT SUMMARY EXTRACTED FROM THE [employer] CHART. IT IS NOT A COPY OF THE [employer] PROGRESS NOTE. JONATHAN
== END ==
LOC: M PAIN 08:30
PROVIDERS: ATTEND Anesthesiology
DX: G89.29 Other chronic pain (principal); M79.1 Myalgia; M25.511 Pain in right shoulder; M25.512 Pain in left shoulder; M54.6 Pain in thoracic spine; E66.9 Obesity, unspecified; Z68.33 Body mass index [BMI] 33.0-33.9, adult; G25.81 Restless legs syndrome; Z79.899 Other long term (current) drug therapy
CPT/HCPCS: 20553; J3301

== ENCOUNTER 2016-12-18 15:41 | Emergency (ER) | payer BC ==
[~2016-12-18] VITALS: Ht 152.4 cm; Wt 79.3 kg
[~2016-12-18 15:41] MED LIST changes: -BUPIVACAINE HCL 0.25% 30 ML VIAL As Ordered ONE; -CYMB60CA3 PO; -FAT EMULSION 20% 500ML As Ordered ONE; -GABA-283 PO; -HYDR-3713 PO; -ISOVUE-M 300 61% 15ML VIAL (Q9967) As Ordered ONE; -LIDOCAINE 1% SDV INJ 30 ML VIAL As Ordered ONE; +MECL1CHW2 PO; -MECL25CH PO; -MIDAZOLAM INJ 2 MG/2 ML VIAL (J2250) As Ordered ONE; +PHEN-501 PO; +PHEN15CA PO; -PHEN15CA58 PO; -PHEN200T14 PO; -POTA10CA PO; -TRIAMCINOLONE ACETONIDE SUSP 40 MG/ML VIAL (J3301) As Ordered ONE; -VESI5TAB PO; +VESI5TAB2 PO; +VITA1CAP40 PO; -VITA50003 PO; -ZOFR4TAB3 PO; -diazePAM 5 MG TAB As Ordered ONE; -oxyCODONE 5MG TAB As Ordered ONE
[2016-12-18] MEDS ORDERED: NS 500 ML IV ONE (16:00)
[2016-12-18] MEDS ORDERED: HYDR-3713 PO (16:17)
[2016-12-18] MEDS ORDERED: GABA-283 PO (16:17)
[2016-12-18] MEDS ORDERED: CYMB60CA3 PO (16:17)
[2016-12-18] MEDS ORDERED: ZOFR4TAB3 PO (16:17)
--- NOTE | 2016-12-18 16:22 | REP ---
CT Head without contrast HISTORY: Altered mental status COMPARISON: None There is no intraparenchymal hemorrhage, acute infarct, mass or midline shift. The ventricular system is normal in appearance. There is no extra cerebral collection. There is no fracture. The visualized sinuses are clear. IMPRESSION: There is no intracranial lesion. Signed by Lloyd Graham MD 12/18/2016 04:13 P
[2016-12-18 16:37] LABS: BASO # 0.1 K/mm3 (0.0-0.2); BASO % 0.6 % (0.0-1.0); EOS # 0.1 K/mm3 (0.0-0.50); EOS % 1.1 % (0.0-3.0); LARGE UNSTAINED CELL # 0.1 K/mm3 (0.0-0.4); LARGE UNSTAINED CELL % 0.7 % (0.0-4.0); LYMPH # 1.6 K/mm3 (1.5-4.5); LYMPH % 11.6 % (24.0-44.0); MEAN CORPUSCULAR HEMOGLOBIN 31.2 pg (27.0-33.0); MEAN CORPUSCULAR HGB CONC 33.6 g/dl (32.0-36.5); MEAN CORPUSCULAR VOLUME 92.8 fl (80.0-96.0); MONO # 0.7 K/mm3 (0.0-0.8); MONO % 5.1 % (0.0-5.0); NEUTROPHILS # 10.4 K/mm3 (1.8-7.7); NEUTROPHILS % 80.9 % (36.0-66.0); PLATELET COUNT, AUTOMATED 481 k/mm3 (150-450); RED CELL DISTRIBUTION WIDTH 12.6 % (11.5-14.5); WHITE BLOOD COUNT 12.8 K/mm3 (4.0-10.0)
[2016-12-18 16:38] LABS: VENOUS BASE EXCESS 3.9 (-2.0-2.0); VENOUS O2 SATURATION 79.5 % (60.0-80.0); VENOUS PARTIAL PRESSURE CO2 33.3 mmHg (38.0-50.0); VENOUS STANDARD HCO3 27.5 MEQ/L; VENOUS TOTAL CO2 27.4 MEQ/L (24.0-28.0)
[2016-12-18 16:46] LABS: CONTROL LINE HCG INT CTR LINE PRESENT
--- NOTE | 2016-12-18 16:54 | REP ---
Chest one-view HISTORY: Altered mental status Comparison: None The lungs are clear. The heart is normal in size. The pulmonary vasculature is normal in appearance. Impression: No acute disease. Signed by Lloyd Graham MD 12/18/2016 04:46 P
[2016-12-18 18:06] LABS: ALBUMIN 3.7 GM/DL (3.2-5.2); ALBUMIN/GLOBULIN RATIO 1.48 (1.00-1.93); ALKALINE PHOSPHATASE 101 U/L (45-117); ALT/SGPT 166 U/L (12-78); ANION GAP 8 MEQ/L (8-16); AST/SGOT 282 U/L (15-37); BILIRUBIN,DIRECT 0.3 MG/DL (0.0-0.2); BILIRUBIN,TOTAL 0.8 MG/DL (0.2-1.0); BLOOD UREA NITROGEN 9 MG/DL (7-18); CARBON DIOXIDE LEVEL 27 MEQ/L (21-32); CHLORIDE LEVEL 104 MEQ/L (98-107); GLOMERULAR FILTRATION RATE > 60.0 (>60); GLUCOSE, FASTING 129 MG/DL (70-105); POTASSIUM SERUM 3.1 MEQ/L (3.5-5.1); SODIUM LEVEL 139 MEQ/L (136-145); TOTAL PROTEIN 6.2 GM/DL (6.4-8.2)
[2016-12-18 18:44] LABS: MAGNESIUM LEVEL 2.1 MG/DL (1.8-2.4)
[2016-12-18] MEDS ORDERED: POTASSIUM CHLORIDE 10 MEQ SR TABLET PO ONE (18:45)
--- NOTE | 2016-12-18 19:42 | ECGEPIP ---
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
[2016-12-18] MEDS ORDERED: POTA10CA PO (20:06)
[2016-12-18 20:19] VITALS: BP 115/52
== END 2016-12-18 20:22 | disposition home or self-care (01) ==
LOC: M ED 17:44
DX: T50.905A Adverse effect of unspecified drugs, medicaments and biological substances, initial encounter (principal); X58.XXXA Exposure to other specified factors, initial encounter; Y92.9 Unspecified place or not applicable; Y93.9 Activity, unspecified; Y99.9 Unspecified external cause status; G89.29 Other chronic pain; M54.2 Cervicalgia; Z98.84 Bariatric surgery status; Z90.49 Acquired absence of other specified parts of digestive tract; Z87.891 Personal history of nicotine dependence
CPT/HCPCS: 36415; 36600; 70450; 71010; 80048; 80076; 82550; 82553; 82803; 83605; 83735; 84443; 84703; 85025; 93005; 93041; 96374; 99285; J3360

== ENCOUNTER → 2016-12-18 | Outpatient (CLI) | payer BC ==
[~2016-12-18] MED LIST changes: -BUPIVACAINE HCL 0.25% 10 ML VIAL As Ordered ONE; +FAT EMULSION 20% 500ML As Ordered ONE; +ISOVUE-M 300 61% 15ML VIAL (Q9967) As Ordered ONE; +LIDOCAINE 1% SDV INJ 30 ML VIAL As Ordered ONE; +MIDAZOLAM INJ 2 MG/2 ML VIAL (J2250) As Ordered ONE
--- NOTE | 2016-12-18 15:49 | REP ---
FLUOROSCOPIC GUIDANCE: The images were reviewed with Dr. Fowler. The patient has a history of back pain. The portable C-arm was provided in the OR for Dr. Montalvo for fluoroscopic guidance. Two intraoperative fluoroscopic spot films were obtained for needle placement verification for left SI joint injection. The films are on the PACs system and are available for review. 6 seconds of fluoroscopic time was utilized for this procedure. Reviewed by DONN Goins 12/18/2016 03:57 PEdited and Signed by Drew Fowler MD 12/18/2016 05:29 P
--- NOTE | 2016-12-24 23:59 | ECWPNPC ---
PATIENT NAME: SILAS GUZMÁN : 1980 GENDER: FEMALE VISIT DATE: 12/18/2016 DISCHARGE DATE: 12/18/16 0000 VISIT LOCKED DATE TIME: PHYSICIAN: CHRISTIANE DRABY RESOURCE: CHRISTIANE DARBY REASON FOR APPOINTMENT 1. L SIJ HISTORY OF PRESENT ILLNESS HISTORY OF PRESENT ILLNESS: PAIN THE PATIENT DESCRIBES THE PAIN... FALL RISK SCREENING: SCREENING :NO FALLS IN THE PAST YEAR CURRENT MEDICATIONS TAKING TYLENOL 500 MG TABLET 2 TABLET NEEDED ORALLY EVERY 6 HRS NEEDED, NOTES: -79912/18/16 TAKING VITAMIN B12 1000MCG TABLET 2 TABLET ORALLY ONCE A DAY, NOTES: 79912/18/16 TAKING MECLIZINE HCL 25 MG TABLET 1 TABLET ORALLY EVERY 6HRS NEEDED DIZZINESS, NOTES: WEEKS AGO TAKING ROPINIROLE HCL 1 MG TABLET 1 TABLET ORALLY BEFORE BEDTIME, NOTES: 219912/17/16 TAKING 28-0.8 MG TABLET 1 ORALLY DAILY, NOTES: 799 TAKING PEPCID 40 MG TABLET 1 TABLET ORALLY BID, NOTES: 799 1207/10/16 TAKING ZOFRAN 4 MG TABLET 1 TAB(S) ORALLY TID PRN, NOTES: 1 WEEK AGO TAKING VITAMIN D-3 5000 UNIT TABLET ORALLY DAILY, NOTES: 79912/18/16 TAKING CYMBALTA 60 MG CAPSULE DELAYED RELEASE PARTICLES 1 CAPSULE ORALLY ONCE A DAY, NOTES: 219912/17/16 TAKING TIZANIDINE HCL 4 MG TABLET 1/2 TO 1 TABLET NEEDED ORALLY Q8H PRN MDD 3, NOTES: 219912/17/16 TAKING TRAMADOL HCL 50 MG TABLET 1 TABLET NEEDED ORALLY EVERY 6 HRS PRN MDD2, NOTES: 79912/18/16 TAKING GABAPENTIN 300 MG CAPSULE 1 TABLET ORALLY THREE TIMES A DAY, NOTES: 79912/18/16 TAKING NORCO 5-325 MG TABLET 1 TABLET NEEDED ORALLY EVERY 6 HRS MDD=4, NOTES: 1200 12/17/16 NOT-TAKING DICYCLOMINE HCL 20 MG TABLET 1 TABLET ORALLY 3 TIMES A DAY, NOTES: NONE NOT-TAKING SOMA 350 MG TABLET 1 ORALLY BEFORE BEDTIME, NOTES: NONE RECENT NOT-TAKING CETIRIZINE HCL 10 MG TABLET 1 TABLET NEEDED ORALLY ONCE A DAY, NOTES: NONE NOT-TAKING SALINE NASAL SPRAY 0.65 % SOLUTION DIRECTED NASALLY FOUR TIMES DAILY, NOTES: NONE MEDICATION LIST REVIEWED AND RECONCILED WITH THE PATIENT PAST MEDICAL HISTORY CHILDHOOD H/O ASTHMA (NO FLARES SINCE AGE 19) H/O CHOLELITHASIS S/P CHOLECYSTECTOMY H/O KIDNEY STONES OBESITY INFERTILITY H/O VITAMIN B12 DEFICIENCY MARGINAL ULCERS X2 OPTIC NEURITIS BLADDER DYSFUNCTION MISCARRIAGE FIBROMYALGIA ALLERGIES OMEPRAZOLE: ANGIOEDEMA: ALLERGY CLINDAMYCIN HCL: VOMIT, RUBIN IN "POUCH": SIDE EFFECTS REVIEW OF SYSTEMS REVIEWED BY: PROVIDER: . CONSTITUTIONAL: ANY CHANGE IN YOUR MEDICAL CONDITION? NO . CHILLS NO . FEVER NO . INFECTION: DO YOU HAVE NEW INFECTIONS? NO . DO YOU HAVE HISTORY OF MRSA? NO . MUSCULOSKELETAL: ANY NEW PATTERNS OF PAIN OR NUMBNESS? NO . GASTROENTEROLOGY: ANY NEW CHANGE IN BOWEL CONTROL? NO . GENITOURINARY: ANY NEW CHANGE IN BLADDER CONTROL? NO . IS THERE A CHANCE YOU COULD BE ? NO . HEMATOLOGY/LYMPH: DO YOU TAKE ANY BLOOD THINNERS? (FOR EXAMPLE- COUMADIN, PLAVIX, AGGRENOX, PLATEL, PRADAXA, OR XARELTO) NO . WHEN WAS YOUR LAST DOSE? DATE: TIME: . NEUROLOGY: HAVE YOU FALLEN IN THE PAST 6 MONTHS? NO . ANY NEW EXTREMITY NUMBNESS OR WEAKNESS? NO . CARDIOLOGY: DO YOU HAVE A PACEMAKER OR DEFIBRILLATOR? NO . RESPIRATORY: HAVE YOU BEEN SICK IN THE PAST WEEK? NO . FEVER NO . FLU LIKE SYMPTOMS? NO . COUGH NO . INTEGUMENTARY: DO YOU HAVE ANY RASHES OR OPEN SORES? NO . ALLERGIC/IMMUNO: ARE YOU ALLERGIC TO SHELLFISH OR IV DYE? NO . ANY NEW ALLERGIES? NO . PSYCHIATRIC: DO YOU HAVE THOUGHTS OF HURTING YOURSELF OR SOMEONE ELSE? NO . ARE YOU ABUSED, NEGLECTED, OR IN AN UNSAFE ENVIRONMENT? NO . ENDOCRINOLOGY: ARE YOU DIABETIC? NO . OTHER: DO YOU NEED ANY PRESCRIPTIONS? NO . IF YES, PLEASE LIST: ____ . ANY NEW PROBLEMS WITH YOUR MEDICATIONS? NO . WHEN DID YOU LAST EAT? 6PM . WHEN DID YOU LAST DRINK? 0930 AM 12/18/16 . WHAT DID YOU LAST DRINK? COFFEE . NAME OF PERSON DRIVING YOU HOME? CHELSI . DO YOU HAVE ANY OTHER QUESTIONS OR CONCERNS NO . VITAL SIGNS WT 172.0 LBS, HT 60 IN, BMI 33.59 INDEX, BP 137/67 MM HG, HR 73 /MIN, RR 16 /MIN, TEMP 98.1 F, OXYGEN SAT % 98%, NA INITIALS TL 1144, REVIEWED BY: NL. ASSESSMENTS SACROILIITIS, NOT ELSEWHERE CLASSIFIED - M46.1 (PRIMARY) PROCEDURES PN SI PRE PROCEDURE DIAGNOSIS SACROILIITIS, SACROILIAC JOINT DYSFUNCTION POST PROCEDURE DIAGNOSIS SACROILIITIS, SACROILIAC JOINT DYSFUNCTION PROCEDURE LEFT SACROILIAC JOINT BLOCK SURGEON DR. 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 I EVALUATED THE PATIENT AND REVIEWED THE CHART. I WENT OVER THE RISKS, ALTERNATIVES, AND BENEFITS ASSOCIATED WITH THIS PROCEDURE. THE PATIENT WOULD LIKE TO PROCEED AND GAVE CONSENT TO PERFORM THE PROCEDURE. THE PATIENT DENIES UNEXPLAINABLE WEIGHT LOSS, FEVER, CHILLS, OR NEW CHANGES IN URINARY OR BOWEL CONTROL DESCRIPTION OF PROCEDURE THE PATIENT WAS BROUGHT TO THE PROCEDURE ROOM AND PLACED IN THE PRONE POSITION. THE LUMBOSACRAL AREA WAS CLEANED WITH CHLORAPREP SOLUTION AND DRAPED ASEPTICALLY. THE PROCEDURE WAS DONE UNDER STERILE CONDITIONS. I CHECKED LATERALITY AND THE LEVEL WHERE THE PROCEDURE WAS GOING TO BE PERFORMED WITH THE PATIENT AND THE SUPPORTING STAFF AT THE MOMENT OF THE TIME OUT IN THE PROCEDURE ROOM. UNDER FLUOROSCOPIC GUIDANCE, TARGET POINT WAS SELECTED AT THE LOWER BORDER OF THE LEFT SACROILIAC JOINT. TARGET POINT WAS SELECTED AFTER MEDIAL ROTATION AND TILT OF THE MAGNIFIER OF THE C-ARM. LIDOCAINE WAS USED TO NUMB THE SKIN AND SUBCUTANEOUS TISSUE BELOW IT. A SPINAL NEEDLE, 22-GAUGE, WAS ADVANCED UNDER FLUOROSCOPIC GUIDANCE AND FOLLOWING PATIENT FEEDBACK UNTIL THE TARGET AREA WAS TOUCHED. THE POSITION OF THE NEEDLE WAS VERIFIED WITH AP AND LATERAL VIEWS. AFTER PROPER POSITION OF THE NEEDLE WAS ACHIEVED, ISOVUE M DYE 30%, 0.25 ML, WAS INJECTED SHOWING SPREAD OF THE DYE. THEN, A SOLUTION OF 20 MG OF KENALOG WAS INJECTED IN LEFT JOINT WITH 10 ML OF BUPIVACAINE 0.125%. THERE WAS NO EVIDENCE OF BLOOD, PARESTHESIA OR CEREBROSPINAL FLUID DURING THE PROCEDURE. THERE WAS NO COMPLICATION DURING THE PROCEDURE. FLUOROSCOPY TIME WAS 6 SECONDS POST PROCEDURE NOTE AT THE RECOVERY ROOM SILAS STARTED TO EXPERIENCE NUMBNESS AND UPPER EXTREMITY TONIC MOVEMENTS. VITAL SIGNS WERE STABLE. SHE WAS MONITORED. A DECISION WAS MADE TO SEND HER TO THE ER. LATER, THE SAME DAY THE PATIENT WAS RELEASED FROM THE ER. THE PATIENT WILL BE SEEN IN A FOLLOW UP IN THE NEXT FEW WEEKS. INSTRUCTIONS WERE GIVEN, QUESTIONS WERE ANSWERED, AND THE PATIENT EXPRESSED UNDERSTANDING AND AGREED WITH THE PLAN. I, TIMOTHY BARBOZA, DOCUMENTED THE ABOVE INFORMATION ACTING A SCRIBE FOR DR. DARBY. I HAVE REVIEWED THE ABOVE DOCUMENT, WRITTEN BY TIMOTHY RANDOLPH AND I VERIFY THAT IT IS ACCURATE DIAGNOSTIC IMAGING [facility] FLUORO GUIDANCE (PAIN)[id number] PROCEDURE CODES 15254 INJECT SACROILIAC JOINT 6045F RADXPS IN END [id number] PXD DISPOSITION & COMMUNICATION FOLLOW UP 3 WEEKS ELECTRONICALLY SIGNED BY CHRISTIANE DARBY MD ON 12/24/2016 AT 11:04 AM EDT DISCLAIMER : THIS IS A VISIT SUMMARY EXTRACTED FROM THE [employer] CHART. IT IS NOT A COPY OF THE [employer] PROGRESS NOTE. JONATHAN
== END ==
LOC: M PAIN 11:40
PROVIDERS: ATTEND Anesthesiology
DX: G89.29 Other chronic pain (principal); M46.1 Sacroiliitis, not elsewhere classified; E66.9 Obesity, unspecified; D51.9 Vitamin B12 deficiency anemia, unspecified; M79.7 Fibromyalgia; Z68.33 Body mass index [BMI] 33.0-33.9, adult; G25.81 Restless legs syndrome; Z88.1 Allergy status to other antibiotic agents; Z88.8 Allergy status to other drugs, medicaments and biological substances; Z79.899 Other long term (current) drug therapy
CPT/HCPCS: G0260; J2250; J3301; Q9967

== ENCOUNTER → 2016-12-22 | Outpatient (REF) | payer BC ==
[~2016-12-22] MED LIST changes: +CYMB60CA3 PO; +GABA-283 PO; +HYDR-3713 PO; -MECL1CHW2 PO; +MECL25CH PO; -PHEN-501 PO; -PHEN15CA PO; +PHEN15CA58 PO; +PHEN200T14 PO; +POTA10CA PO; +VESI5TAB PO; -VESI5TAB2 PO; -VITA1CAP40 PO; +VITA50003 PO; +ZOFR4TAB3 PO
[2016-12-22 18:34] LABS: ALBUMIN 3.7 GM/DL (3.2-5.2); ALBUMIN/GLOBULIN RATIO 1.23 (1.00-1.93); ALKALINE PHOSPHATASE 165 U/L (45-117); ALT/SGPT 971 U/L (12-78); ANION GAP 6 MEQ/L (8-16); AST/SGOT 916 U/L (15-37); BILIRUBIN,TOTAL 0.4 MG/DL (0.2-1.0); BLOOD UREA NITROGEN 11 MG/DL (7-18); CALCIUM LEVEL 8.8 MG/DL (8.5-10.1); CARBON DIOXIDE LEVEL 29 MEQ/L (21-32); CHLORIDE LEVEL 104 MEQ/L (98-107); CREATININE FOR GFR 0.57 MG/DL (0.55-1.02); GLOMERULAR FILTRATION RATE > 60.0 (>60); GLUCOSE, FASTING 95 MG/DL (70-105); HCG, SERUM QUANTITATIVE < 1.0 MIU/ML; POTASSIUM SERUM 4.2 MEQ/L (3.5-5.1); SODIUM LEVEL 139 MEQ/L (136-145); TOTAL PROTEIN 6.7 GM/DL (6.4-8.2)
[2016-12-22 20:18] LABS: MEAN CORPUSCULAR HEMOGLOBIN 31.5 pg (27.0-33.0); MEAN CORPUSCULAR HGB CONC 32.6 g/dl (32.0-36.5); MEAN CORPUSCULAR VOLUME 96.7 fl (80.0-96.0); RED CELL DISTRIBUTION WIDTH 12.4 % (11.5-14.5); WHITE BLOOD COUNT 6.7 K/mm3 (4.0-10.0)
== END ==
LOC: M SFHCLERA 13:21
PROVIDERS: ATTEND Physician Assistant
DX: N93.9 Abnormal uterine and vaginal bleeding, unspecified (principal); R79.89 Other specified abnormal findings of blood chemistry

== ENCOUNTER → 2016-12-24 | Outpatient (CLI) | payer BC ==
--- NOTE | 2016-12-24 08:07 | REP ---
Clinical: Elevated liver function tests. Technique: Fowler scale ultrasound using curved array transducer. Findings: The liver and pancreas are normal in contour, size, and echogenicity without focal hepatic or pancreatic lesions identified. The patient is status post cholecystectomy with mild compensatory biliary ductal dilatation. The common bile duct measures 5.8 - 7.6 mm diameter. The right kidney is normal in reniform shape without hydronephrosis and measures 11.0 x 5.4 x 4.6 cm. No ascites. Visualized portions of the abdominal aorta normal. Impression: 1. Status post cholecystectomy. 2. Otherwise normal right upper quadrant and liver ultrasound. Signed by Wm Kothari MD 12/24/2016 07:58 A
== END ==
LOC: M RAD 07:17
PROVIDERS: ATTEND Physician Assistant
DX: R79.89 Other specified abnormal findings of blood chemistry (principal)

== ENCOUNTER → 2016-12-24 | Outpatient (CLI) | payer BC ==
[2016-12-24 09:22] LABS: BASO # 0.1 K/mm3 (0.0-0.2); BASO % 0.7 % (0.0-1.0); EOS # 0.2 K/mm3 (0.0-0.50); LARGE UNSTAINED CELL # 0.1 K/mm3 (0.0-0.4); LARGE UNSTAINED CELL % 1.3 % (0.0-4.0); LYMPH # 2.2 K/mm3 (1.5-4.5); LYMPH % 21.8 % (24.0-44.0); MEAN CORPUSCULAR HEMOGLOBIN 32.3 pg (27.0-33.0); MEAN CORPUSCULAR HGB CONC 33.4 g/dl (32.0-36.5); MEAN CORPUSCULAR VOLUME 96.6 fl (80.0-96.0); MONO # 0.6 K/mm3 (0.0-0.8); MONO % 6.2 % (0.0-5.0); NEUTROPHILS # 6.8 K/mm3 (1.8-7.7); PLATELET COUNT, AUTOMATED 440 k/mm3 (150-450); RED CELL DISTRIBUTION WIDTH 12.4 % (11.5-14.5)
[2016-12-24 09:42] LABS: ERYTHROCYTE SEDIMENTATION RATE 5 mm/hr (0-20)
[2016-12-24 09:45] LABS: ALBUMIN 3.7 GM/DL (3.2-5.2); ALBUMIN/GLOBULIN RATIO 1.16 (1.00-1.93); ALKALINE PHOSPHATASE 132 U/L (45-117); ALT/SGPT 443 U/L (12-78); AMYLASE 44 U/L (25-115); ANION GAP 5 MEQ/L (8-16); AST/SGOT 83 U/L (15-37); BILIRUBIN,TOTAL 0.5 MG/DL (0.2-1.0); BLOOD UREA NITROGEN 10 MG/DL (7-18); CALCIUM LEVEL 9.2 MG/DL (8.5-10.1); CARBON DIOXIDE LEVEL 31 MEQ/L (21-32); CHLORIDE LEVEL 104 MEQ/L (98-107); CREATININE FOR GFR 0.56 MG/DL (0.55-1.02); GAMMA GLUTAMYLTRANSPEPTIDASE 183 U/L (5-55); GLOMERULAR FILTRATION RATE > 60.0 (>60); GLUCOSE, FASTING 89 MG/DL (70-105); POTASSIUM SERUM 4.3 MEQ/L (3.5-5.1); SODIUM LEVEL 140 MEQ/L (136-145); TOTAL PROTEIN 6.9 GM/DL (6.4-8.2)
[2016-12-24 09:46] LABS: INR 0.92
== END ==
LOC: M LAB 08:26
PROVIDERS: ATTEND Physician Assistant
DX: R10.11 Right upper quadrant pain (principal); R79.89 Other specified abnormal findings of blood chemistry

== ENCOUNTER → 2016-12-24 | Outpatient (CLI) | payer BC ==
--- NOTE | 2016-12-25 01:03 | ECWPNPC ---
PATIENT NAME: SILAS GUZMÁN : 1980 GENDER: FEMALE VISIT DATE: 12/24/2016 DISCHARGE DATE: 12/24/16 1031 VISIT LOCKED DATE TIME: PHYSICIAN: ASHWINI CHAMPION RESOURCE: ASHWINI CHAMPION REASON FOR APPOINTMENT 1. POST TPI HISTORY OF PRESENT ILLNESS HISTORY OF PRESENT ILLNESS: HERE FOR POST PROCEDURE F/U.HAD TPI ON 12-10-16 ON UPPER BACK WHICH PATIENT STATES WAS VERY HELPFUL AND THIS CONTINUES TODAY.RATING PAIN LEVEL 3/10 VAS UPPER BACK.HAD LEFT SIJ ON 12-18-16 AND REPORTS >50% REDUCTION IN PAIN THAT CONTINUES TODAY. BEING EVALUATED FOR ELEVATED LIVER ENZYMES. PAIN THE PATIENT DESCRIBES THE PAIN... FALL RISK SCREENING: SCREENING :NO FALLS IN THE PAST YEAR CURRENT MEDICATIONS TAKING TYLENOL 500 MG TABLET 2 TABLET NEEDED ORALLY EVERY 6 HRS NEEDED TAKING VITAMIN B12 1000MCG TABLET 2 TABLET ORALLY ONCE A DAY TAKING MECLIZINE HCL 25 MG TABLET 1 TABLET ORALLY EVERY 6HRS NEEDED DIZZINESS TAKING ROPINIROLE HCL 1 MG TABLET 1 TABLET ORALLY BEFORE BEDTIME TAKING 28-0.8 MG TABLET 1 ORALLY DAILY TAKING PEPCID 40 MG TABLET 1 TABLET ORALLY BID TAKING ZOFRAN 4 MG TABLET 1 TAB(S) ORALLY TID PRN TAKING VITAMIN D-3 5000 UNIT TABLET ORALLY DAILY TAKING CYMBALTA 60 MG CAPSULE DELAYED RELEASE PARTICLES 1 CAPSULE ORALLY ONCE A DAY TAKING TIZANIDINE HCL 4 MG TABLET 1/2 TO 1 TABLET NEEDED ORALLY Q8H PRN MDD 3 TAKING TRAMADOL HCL 50 MG TABLET 1 TABLET NEEDED ORALLY EVERY 6 HRS PRN MDD2 TAKING GABAPENTIN 300 MG CAPSULE 1 TABLET ORALLY THREE TIMES A DAY TAKING NORCO 5-325 MG TABLET 1 TABLET NEEDED ORALLY EVERY 6 HRS MDD=4 TAKING HYDROCODONE-ACETAMINOPHEN 5-325 MG TABLET 1 TABLET NEEDED ORALLY EVERY 4-6 HRS, PRN TAKING POTASSIUM BICARB-CITRIC ACID 10 MEQ TABLET EFFERVESCENT 1 TABLET ORALLY ONCE A DAY NOT-TAKING DICYCLOMINE HCL 20 MG TABLET 1 TABLET ORALLY 3 TIMES A DAY, NOTES: NONE NOT-TAKING SOMA 350 MG TABLET 1 ORALLY BEFORE BEDTIME, NOTES: NONE RECENT NOT-TAKING CETIRIZINE HCL 10 MG TABLET 1 TABLET NEEDED ORALLY ONCE A DAY, NOTES: NONE NOT-TAKING SALINE NASAL SPRAY 0.65 % SOLUTION DIRECTED NASALLY FOUR TIMES DAILY, NOTES: NONE MEDICATION LIST REVIEWED AND RECONCILED WITH THE PATIENT PAST MEDICAL HISTORY CHILDHOOD H/O ASTHMA (NO FLARES SINCE AGE 19) H/O CHOLELITHASIS S/P CHOLECYSTECTOMY H/O KIDNEY STONES OBESITY INFERTILITY H/O VITAMIN B12 DEFICIENCY MARGINAL ULCERS X2 OPTIC NEURITIS BLADDER DYSFUNCTION MISCARRIAGE FIBROMYALGIA ALLERGIES OMEPRAZOLE: ANGIOEDEMA: ALLERGY CLINDAMYCIN HCL: VOMIT, RUBIN IN "POUCH": SIDE EFFECTS SURGICAL HISTORY CHOLECYSTECTOMY 2010 GASTRIC BYPASS 2011, 2014 ENDOSCOPIES-MULTIPLE COLONOSCOPY 2016 CARPAL TUNNEL SURGERY 12/21/16 HOSPITALIZATION/MAJOR DIAGNOSTIC PROCEDURE SEE SURGERIES ULCERS 02/16-03/19 REVIEW OF SYSTEMS REVIEWED BY: PROVIDER: ASHWINI VALENZUELA . CONSTITUTIONAL: ANY CHANGE IN YOUR MEDICAL CONDITION? YES, PT STATES SHE HAS BEEN TOLD BY ER MD HER LIVER ENZYMES ARE ELEVATED. PT STATES SHE HAD A SIJ 12/18/16 WHERE SHE WAS TRANSFERED TO ER FOR ADVERSE REACTION. PT STATES IT IS NOT QUITE CLEAR WHAT HAPPENED, PT DENIES NEW DX OR NEW IDENTIFIED ALLERGY. PT STATES HER PCP, GWENDOLYN MORALES IS RULING OUT DX TO FIGURE OUT WHAT HAPPENED. . CHILLS NO . FEVER NO . INFECTION: DO YOU HAVE NEW INFECTIONS? NO . DO YOU HAVE HISTORY OF MRSA? NO . MUSCULOSKELETAL: ANY NEW PATTERNS OF PAIN OR NUMBNESS? NO . GASTROENTEROLOGY: ANY NEW CHANGE IN BOWEL CONTROL? NO . GENITOURINARY: ANY NEW CHANGE IN BLADDER CONTROL? NO . IS THERE A CHANCE YOU COULD BE ? NO . HEMATOLOGY/LYMPH: DO YOU TAKE ANY BLOOD THINNERS? (FOR EXAMPLE- COUMADIN, PLAVIX, AGGRENOX, PLATEL, PRADAXA, OR XARELTO) NO . WHEN WAS YOUR LAST DOSE? DATE: TIME: . NEUROLOGY: HAVE YOU FALLEN IN THE PAST 6 MONTHS? NO . ANY NEW EXTREMITY NUMBNESS OR WEAKNESS? NO . CARDIOLOGY: DO YOU HAVE A PACEMAKER OR DEFIBRILLATOR? NO . RESPIRATORY: HAVE YOU BEEN SICK IN THE PAST WEEK? NO . FEVER NO . FLU LIKE SYMPTOMS? NO . COUGH NO . INTEGUMENTARY: DO YOU HAVE ANY RASHES OR OPEN SORES? NO . ALLERGIC/IMMUNO: ARE YOU ALLERGIC TO SHELLFISH OR IV DYE? NO . ANY NEW ALLERGIES? NO . PSYCHIATRIC: DO YOU HAVE THOUGHTS OF HURTING YOURSELF OR SOMEONE ELSE? NO . ARE YOU ABUSED, NEGLECTED, OR IN AN UNSAFE ENVIRONMENT? NO . ENDOCRINOLOGY: ARE YOU DIABETIC? NO . OTHER: DO YOU NEED ANY PRESCRIPTIONS? NO . IF YES, PLEASE LIST: ____ . ANY NEW PROBLEMS WITH YOUR MEDICATIONS? NO . WHEN DID YOU LAST EAT? ____ . WHEN DID YOU LAST DRINK? ____ . WHAT DID YOU LAST DRINK? ____ . NAME OF PERSON DRIVING YOU HOME? ____ . DO YOU HAVE ANY OTHER QUESTIONS OR CONCERNS NO . VITAL SIGNS WT 179 LBS, HT 60 IN, BMI 34.95 INDEX, BP 154/87 MM HG, HR 92 /MIN, RR 16 /MIN, TEMP 98.5 F, OXYGEN SAT % 100%, SAFE IN ENV? (Y/N) Y, NA INITIALS TL 0950, REVIEWED BY: EM. EXAMINATION CERVICAL SPINE/NECK: RANGE OF MOTION OF NECK:FULL ROJM NECK WITH COMPLAINTS OF INCREASED NECK PAIN W LATERAL ROTATION.. REFLEXES:2 PLUS BILATERALLY. SENSATIONS:NORMAL BILATERALLY. VERTEBRAL SPINE TENDERNESS:MILD TENDERNESS. TRAPEZIUS TENDERNESS:PRESENT,MILD. GENERAL EXAMINATION: LUNGS:LUNG DUFFY ARE CLEAR TO AUSCULTATION BILATERALLY. GOOD MOVEMENT OF AIR. HEART:S1, S2 IN A REGULAR RATE AND RHYTHM. NO SIGNIFICANT MURMURS, RUBS OR GALLOPS NOTED. ASSESSMENTS MYALGIA - M79.1 (PRIMARY) SACROILIAC JOINT PAIN - M53.3 CERVICALGIA - M54.2 PROCEDURE CODES FA211 ESTABILISHED PATIENT [facility] CHARGE DISPOSITION & COMMUNICATION FOLLOW UP 2 MONTHS ELECTRONICALLY SIGNED BY NICOLAS GARCIA ON 12/24/2016 AT 05:20 PM EDT DISCLAIMER : THIS IS A VISIT SUMMARY EXTRACTED FROM THE [employer] CHART. IT IS NOT A COPY OF THE [employer] PROGRESS NOTE. MTDD
== END ==
LOC: M PAIN 09:40
PROVIDERS: ATTEND Nurse Practitioner Family
DX: G89.29 Other chronic pain (principal); M79.1 Myalgia; M53.3 Sacrococcygeal disorders, not elsewhere classified; M54.2 Cervicalgia; E66.9 Obesity, unspecified; Z68.34 Body mass index [BMI] 34.0-34.9, adult; D51.9 Vitamin B12 deficiency anemia, unspecified; Z88.1 Allergy status to other antibiotic agents; Z88.8 Allergy status to other drugs, medicaments and biological substances; Z79.899 Other long term (current) drug therapy

== ENCOUNTER → 2016-12-25 | Outpatient (CLI) | payer BC ==
--- NOTE | 2016-12-25 13:33 | REP ---
PELVIC ULTRASOUND: Real-time sonographic evaluation of the pelvis is performed utilizing transabdominal and endovaginal technique. The urinary bladder measures 6.8 x 6.2 x 8.6 cm. The uterus measures 8.9 x 3.2 x 4.1 cm. Endometrial thickness is 7 mm. In the posterior uterine body, there is a hyperechoic area which measures approximately 2.7 x 2.0 x 2.3 cm. Margins are somewhat ill-defined. This could represent a myoma or an area of adenomyosis. Right ovary measures 2.7 x 1.9 x 2.4 cm. Complex follicle measures 2.0 x 0.6 x 1.6 cm. Left ovary measures 4.1 x 2.1 x 3.1 cm. There is a small cyst containing a septation measuring 2.4 x 3.0 x 1.7 cm. Blood flow is seen in each ovary with duplex Doppler evaluation, with no torsion. There is no free fluid. IMPRESSION: Area of increased echogenicity in the posterior uterus. It demonstrates somewhat ill-defined margins with maximum diameter of 2.7 cm. This may represent a myoma or area of adenomyosis. Endometrial thickness 7 mm. Complex follicle right ovary. Small cyst left ovary. Signed by Drew Fowler MD 12/25/2016 03:27 P
== END ==
LOC: M LRY 09:05
PROVIDERS: ATTEND Physician Assistant
DX: N93.9 Abnormal uterine and vaginal bleeding, unspecified (principal); N83.01 Follicular cyst of right ovary

== ENCOUNTER → 2016-12-31 | Outpatient (REF) | payer BC ==
[~2016-12-31] MED LIST changes: +MECL1CHW2 PO; -MECL25CH PO; +PHEN-501 PO; +PHEN15CA PO; -PHEN15CA58 PO; -PHEN200T14 PO; -VESI5TAB PO; +VESI5TAB2 PO; +VITA1CAP40 PO; -VITA50003 PO
[2016-12-31 14:03] LABS: ALBUMIN 3.5 GM/DL (3.2-5.2); ALBUMIN/GLOBULIN RATIO 1.13 (1.00-1.93); BILIRUBIN,DIRECT 0.1 MG/DL (0.0-0.2); BILIRUBIN,TOTAL 0.5 MG/DL (0.2-1.0); TOTAL PROTEIN 6.6 GM/DL (6.4-8.2)
== END ==
LOC: M SFHCLERA 11:37
PROVIDERS: ATTEND Physician Assistant
DX: R74.8 Abnormal levels of other serum enzymes (principal)

== ENCOUNTER → 2017-01-07 | Outpatient (CLI) | payer BC ==
--- NOTE | 2017-01-07 16:23 | REP ---
Digital diagnostic unilateral left breast mammogram and focused left breast sonography: History: Indentation in the left breast. Mammographic findings: CC and MLO views left breast are obtained with a skin marker affixed to the skin at the site of the patient's observation of indentation or contour deformity. No contour deformity visible mammographically. No skin thickening or retraction is seen. Breast parenchyma is predominately fat replaced. There is some scattered fibroglandular elements in the subareolar zone. No mass lesions or nodule is seen. No spiculation or microcalcification is observed. Sonographic findings: The left breast is scanned from 9 o'clock to 11 o'clock in the area of certain. Homogeneous fat echotexture is seen. No mass or acoustic shadowing or architectural distortion is apparent. No cyst is seen. Impression: BIRADS category 1 negative left breast imaging. Clinical follow-up is advised. This mammogram was interpreted with the aid of an FDA-approved computer-aided detection system. The patient states she had a clinical breast exam in December 2016 The patient letter being requested is M2. Signed by Rod Ren MD 01/07/2017 05:16 P
== END ==
LOC: M RAD 13:40
PROVIDERS: ATTEND Obstetrics & Gynecology
DX: N64.59 Other signs and symptoms in breast (principal); R92.8 Other abnormal and inconclusive findings on diagnostic imaging of breast
CPT/HCPCS: 76642; G0206

== ENCOUNTER → 2017-03-01 | Outpatient (REF) | payer MEDICAID ==
[2017-03-01 14:43] LABS: MEAN CORPUSCULAR HEMOGLOBIN 30.9 pg (27.0-33.0); MEAN CORPUSCULAR HGB CONC 32.8 g/dl (32.0-36.5); MEAN CORPUSCULAR VOLUME 94.1 fl (80.0-96.0); RED CELL DISTRIBUTION WIDTH 11.8 % (11.5-14.5); WHITE BLOOD COUNT 6.1 K/mm3 (4.0-10.0)
== END ==
LOC: M LAB REF 12:03
PROVIDERS: ATTEND Obstetrics & Gynecology
DX: N93.9 Abnormal uterine and vaginal bleeding, unspecified (principal)

== ENCOUNTER → 2017-03-03 | Outpatient (CLI) | payer MEDICAID ==
--- NOTE | 2017-03-03 11:41 | REP ---
PELVIC SONOGRAM: HISTORY: Abnormal uterine and vaginal bleeding. Comparison study December 25, 2016. SONOGRAPHIC FINDINGS: Transabdominal and transvaginal scanning are performed. Uterine dimensions are 5.7 x 3.0 x 3.5 cm. Uterus is anteverted. No fibroid or other uterine abnormality is seen. No endometrial or myometrial mass lesion is observed. There is a mild amount of fluid in the cul-de-sac. The right ovary measures 4.2 x 2.3 x 4.1 cm. It contains a septated cyst measuring 2.8 x 1.9 x 3.2 cm. The left ovary measures 3.5 x 2.5 x 2.6 cm. There is a 2.0 cm follicle in the left ovary. IMPRESSION: 3.2 cm septated follicle cyst right ovary. Mild cul-de-sac fluid. Otherwise negative. Signed by Rod Ren MD 03/03/2017 01:43 P
== END ==
LOC: M RAD 10:00
PROVIDERS: ATTEND Obstetrics & Gynecology
DX: N93.9 Abnormal uterine and vaginal bleeding, unspecified (principal); N83.01 Follicular cyst of right ovary

== ENCOUNTER → 2017-03-10 | Outpatient (CLI) | payer MEDICARE, OTHER ==
--- NOTE | 2017-03-10 11:02 | REP ---
Clinical: Preoperative assessment . Comparison: 12/18/2016 . Technique: PA and lateral. Findings: The mediastinum and cardiac silhouette are normal. Airway is patent and midline. The lung godinez are clear and without acute consolidation, effusion, or pneumothorax. The skeletal structures are intact and normal. Impression: 1. No acute cardiopulmonary process. Signed by Wm Kothari MD 03/10/2017 10:53 A
== END ==
LOC: M LRY 09:56
PROVIDERS: ATTEND Family Medicine
DX: Z01.818 Encounter for other preprocedural examination (principal)

== ENCOUNTER → 2017-03-10 | Outpatient (REF) | payer MEDICAID, OTHER ==
[2017-03-10 11:58] LABS: MEAN CORPUSCULAR HGB CONC 33.6 g/dl (32.0-36.5); MEAN CORPUSCULAR VOLUME 92.1 fl (80.0-96.0); WHITE BLOOD COUNT 5.8 K/mm3 (4.0-10.0)
[2017-03-10 11:59] LABS: INR 0.96
[2017-03-10 12:09] LABS: ALBUMIN 3.9 GM/DL (3.2-5.2); ALBUMIN/GLOBULIN RATIO 1.22 (1.00-1.93); ALKALINE PHOSPHATASE 64 U/L (45-117); ALT/SGPT 25 U/L (12-78); ANION GAP 9 MEQ/L (8-16); AST/SGOT 18 U/L (15-37); BILIRUBIN,TOTAL 0.5 MG/DL (0.2-1.0); BLOOD UREA NITROGEN 14 MG/DL (7-18); CARBON DIOXIDE LEVEL 28 MEQ/L (21-32); CHLORIDE LEVEL 105 MEQ/L (98-107); GLOMERULAR FILTRATION RATE > 60.0 (>60); GLUCOSE, FASTING 78 MG/DL (70-105); POTASSIUM SERUM 3.7 MEQ/L (3.5-5.1); SODIUM LEVEL 142 MEQ/L (136-145); TOTAL PROTEIN 7.1 GM/DL (6.4-8.2)
[2017-03-10 13:42] LABS: ANISOCYTOSIS 1+; BASOPHILS 1 % (0-4); EOSINOPHILS 2 % (0-5)
[2017-03-10 14:24] LABS: CONTROL LINE UCG INT CTR LINE PRESENT
== END ==
LOC: M SFHCLERA 09:49
PROVIDERS: ATTEND Family Medicine
DX: Z01.818 Encounter for other preprocedural examination (principal)

== ENCOUNTER → 2017-06-22 | Outpatient (CLI) | payer OTHER, MEDICAID ==
--- NOTE | 2017-06-23 14:33 | REP ---
Clinical: Pain. Technique: AP, lateral, bilateral oblique and sunrise views of the left knee. Findings: Early advanced arthritic degenerative changes include increased sclerosis to the tibial plateau and patella with associated tibiofemoral and patellofemoral joint space narrowing and marginal osteophyte formation. No acute fracture dislocation. No definite effusion. Multiple partially calcified granulomas identified in the soft tissues overlying the proximal tibia may reflect old trauma/injury. Impression: Early advanced arthritic changes of the left knee. Signed by Wm Kothari MD 06/22/2017 11:59 P
== END ==
LOC: M LRY 13:46
PROVIDERS: ATTEND Physician Assistant
DX: M17.12 Unilateral primary osteoarthritis, left knee (principal)

== ENCOUNTER → 2018-02-09 | Outpatient (CLI) | payer OTHER, MEDICAID | LOC: M LRY 15:10 | DX: R06.02 Shortness of breath (principal); Z98.1 Arthrodesis status | CPT/HCPCS: 71046 ==

== ENCOUNTER → 2018-04-12 | Outpatient (CLI) | payer OTHER, MEDICAID ==
[2018-04-12 20:34] LABS: BASO # 0.1 10^3/uL (0.0-0.2); BASO % 0.5 % (0.0-1.0); EOS # 0.1 10^3/uL (0.0-0.50); EOS % 1.3 % (0.0-3.0); HEMATOCRIT 36.6 % (36.0-47.0); HEMOGLOBIN 11.3 g/dl (12.0-15.5); IMMATURE GRANULOCYTE % 0.3 % (0-3.0); LYMPH # 2.3 10^3/uL (1.5-4.5); LYMPH % 24.4 % (24.0-44.0); MEAN CORPUSCULAR HGB CONC 30.9 g/dl (32.0-36.5); MEAN CORPUSCULAR VOLUME 90.8 fl (80.0-96.0); MONO # 0.6 10^3/uL (0.0-0.8); MONO % 5.8 % (0.0-5.0); NEUTROPHILS # 6.5 10^3/uL (1.8-7.7); NEUTROPHILS % 67.7 % (36.0-66.0); PLATELET COUNT, AUTOMATED 477 10^3/uL (150-450); RED BLOOD COUNT 4.03 10^6/uL (4.00-5.40); RED CELL DISTRIBUTION WIDTH 13.6 % (11.5-14.5); WHITE BLOOD COUNT 9.6 10^3/uL (4.0-10.0)
[2018-04-12 21:36] LABS: ALBUMIN 3.4 GM/DL (3.2-5.2); ALKALINE PHOSPHATASE 92 U/L (45-117); ALT/SGPT 19 U/L (12-78); ANION GAP 8 MEQ/L (8-16); AST/SGOT 13 U/L (7-37); BILIRUBIN,TOTAL 0.3 MG/DL (0.2-1.0); BLOOD UREA NITROGEN 8 MG/DL (7-18); CALCIUM LEVEL 8.4 MG/DL (8.5-10.1); CARBON DIOXIDE LEVEL 27 MEQ/L (21-32); CHLORIDE LEVEL 107 MEQ/L (98-107); CREATININE FOR GFR 0.62 MG/DL (0.55-1.30); FERRITIN 6 NG/ML (8-252); FOLATE 7.8 NG/ML (>5.4); GLOMERULAR FILTRATION RATE > 60.0 (>60); GLUCOSE, FASTING 120 MG/DL (70-100); POTASSIUM SERUM 4.2 MEQ/L (3.5-5.1); SODIUM LEVEL 142 MEQ/L (136-145); TOTAL 25(OH) VITAMIN D 25.8 NG/ML (30.0-100.0); TOTAL PROTEIN 6.5 GM/DL (6.4-8.2)
== END ==
LOC: M LRY 14:32
DX: R20.2 Paresthesia of skin (principal); G44.229 Chronic tension-type headache, not intractable; G43.009 Migraine without aura, not intractable, without status migrainosus
CPT/HCPCS: 82746

== ENCOUNTER → 2018-04-23 | Outpatient (REF) | payer OTHER, MEDICAID | LOC: M SFHCLERA 15:27 | DX: J02.9 Acute pharyngitis, unspecified (principal) ==

== ENCOUNTER → 2018-06-02 | Outpatient (REF) | payer OTHER, MEDICAID ==
[2018-06-02 16:44] LABS: BASO # 0.1 10^3/uL (0.0-0.2); BASO % 1.1 % (0.0-1.0); EOS # 0.1 10^3/uL (0.0-0.50); EOS % 1.3 % (0.0-3.0); HEMATOCRIT 36.3 % (36.0-47.0); HEMOGLOBIN 11.2 g/dl (12.0-15.5); IMMATURE GRANULOCYTE % 0.1 % (0-3.0); LYMPH # 2.8 10^3/uL (1.5-4.5); LYMPH % 32.9 % (24.0-44.0); MEAN CORPUSCULAR HEMOGLOBIN 27.2 pg (27.0-33.0); MEAN CORPUSCULAR HGB CONC 30.9 g/dl (32.0-36.5); MEAN CORPUSCULAR VOLUME 88.1 fl (80.0-96.0); MONO # 0.7 10^3/uL (0.0-0.8); MONO % 8.1 % (0.0-5.0); NEUTROPHILS # 4.8 10^3/uL (1.8-7.7); NEUTROPHILS % 56.5 % (36.0-66.0); PLATELET COUNT, AUTOMATED 500 10^3/uL (150-450); RED BLOOD COUNT 4.12 10^6/uL (4.00-5.40); RED CELL DISTRIBUTION WIDTH 12.8 % (11.5-14.5); WHITE BLOOD COUNT 8.5 10^3/uL (4.0-10.0)
== END ==
LOC: M SFHCLERA 13:43
DX: D64.9 Anemia, unspecified (principal)
CPT/HCPCS: 85025

== ENCOUNTER → 2018-09-13 | Outpatient (REF) | payer OTHER, MEDICAID ==
[~2018-09-13] MED LIST changes: +APAP500T10 PO; +ASPE4PAD TOP; -GABA-283 PO; +GABA-845 PO; +IRON27TA2 PO; +KLOR10TA76 PO; +ONDA4TAB6 PO; -POTA10CA PO; +TIZA4CAP PO; -TIZA4CAP3 PO; +TOPI200T7 PO; +VITA100066 PO; -VITA1CAP40 PO; +VITA50005 PO; +ZOFR4TAB14 PO; -ZOFR4TAB3 PO
[2018-09-13 20:34] LABS: BASO # 0.1 10^3/uL (0.0-0.2); BASO % 1.1 % (0.0-1.0); EOS # 0.1 10^3/uL (0.0-0.50); EOS % 1.5 % (0.0-3.0); HEMATOCRIT 40.6 % (36.0-47.0); HEMOGLOBIN 12.8 g/dl (12.0-15.5); LYMPH # 2.8 10^3/uL (1.5-4.5); LYMPH % 35.5 % (24.0-44.0); MEAN CORPUSCULAR HEMOGLOBIN 28.3 pg (27.0-33.0); MEAN CORPUSCULAR HGB CONC 31.5 g/dl (32.0-36.5); MEAN CORPUSCULAR VOLUME 89.6 fl (80.0-96.0); MONO # 0.5 10^3/uL (0.0-0.8); MONO % 6.5 % (0.0-5.0); NEUTROPHILS # 4.4 10^3/uL (1.8-7.7); NEUTROPHILS % 55.3 % (36.0-66.0); PLATELET COUNT, AUTOMATED 439 10^3/uL (150-450); RED BLOOD COUNT 4.53 10^6/uL (4.00-5.40); WHITE BLOOD COUNT 7.9 10^3/uL (4.0-10.0)
== END ==
LOC: M SFHCLERA 16:24
PROVIDERS: ATTEND Family Medicine
DX: D50.0 Iron deficiency anemia secondary to blood loss (chronic) (principal)

== ENCOUNTER 2018-09-23 11:06 | Day surgery (SDC) | payer OTHER ==
[~2018-09-23] VITALS: Ht 152.4 cm; Wt 95.3 kg
[~2018-09-23 11:06] MED LIST changes: +LIDOCAINE 2% INJ 100 MG/5 ML SDV (FOR ANES.) As Ordered ONE; +NS 1,000 ML IV ONE; +PROPOFOL 200 MG/20 ML VIAL As Ordered ONE
[2018-09-23] MEDS ORDERED: PROPOFOL 200 MG/20 ML VIAL As Ordered ONE ×2 (12:47→12:59)
--- NOTE | 2018-09-23 13:13 | ROOR ---
Patient Name: Anjelica Key Procedure Date: 09/23/2018 12:26 PM Date of : 1980 Age: 38 Room: [facility] Gender: Female Note Status: Finalized Procedure: Colonoscopy Indications: Chronic diarrhea, Hematochezia Providers: Zeb Dennis MD Referring MD: Drew BULL MD Requesting Provider: Medicines: Monitored Anesthesia Care Complications: No immediate complications. Procedure: Pre-Anesthesia Assessment: - Prior to the procedure, a History and Physical was performed, and patient medications and allergies were reviewed. The patient is competent. The risks and benefits of the procedure and the sedation options and risks were discussed with the patient. All questions were answered and informed consent was obtained. Patient identification and proposed procedure were verified by the physician, the nurse and the anesthesiologist in the procedure room. Mental Status Examination: alert and oriented. Airway Examination: normal oropharyngeal airway and neck mobility. Respiratory Examination: clear to auscultation. CV Examination: normal. Prophylactic Antibiotics: The patient does not require prophylactic antibiotics. Prior Anticoagulants: The patient has taken no previous anticoagulant or antiplatelet agents. ASA Grade Assessment: III - A patient with severe systemic disease. After reviewing the risks and benefits, the patient was deemed in satisfactory condition to undergo the procedure. The anesthesia plan was to use monitored anesthesia care (MAC). Immediately prior to administration of medications, the patient was re-assessed for adequacy to receive sedatives. The heart rate, respiratory rate, oxygen saturations, blood pressure, adequacy of pulmonary ventilation, and response to care were monitored throughout the procedure. The physical status of the patient was re-assessed after the procedure. The Colonoscope was introduced through the anus and advanced to the terminal ileum, with identification of the appendiceal orifice and IC valve. The colonoscopy was performed without difficulty. The patient tolerated the procedure well. The quality of the bowel preparation was adequate to identify polyps 6 mm and larger in size. The terminal ileum, ileocecal valve, appendiceal orifice, and rectum were photographed. Scope insertion time was 3 minutes. Scope withdrawal time was 6 minutes. The total duration of the procedure was 10 minutes. Findings: The perianal and digital rectal examinations were normal. The terminal ileum appeared normal. Normal mucosa was found in the entire colon. Biopsies for histology were taken with a cold forceps from the right colon, left colon and rectosigmoid colon for evaluation of microscopic colitis. Verification of patient identification for the specimen was done by the physician and nurse using the patient's name, date and medical record number. Estimated blood loss was minimal. Non-bleeding external and internal hemorrhoids were found during retroflexion. The hemorrhoids were medium-sized. Impression: - The examined portion of the ileum was normal. - Normal mucosa in the entire examined colon. Biopsied. - Non-bleeding external and internal hemorrhoids. Recommendation: - Patient has a contact number available for emergencies. The signs and symptoms of potential delayed complications were discussed with the patient. Return to normal activities tomorrow. Written discharge instructions were provided to the patient. - Advance diet as tolerated. - Await pathology results. - Repeat colonoscopy at age 50 for screening purposes. - Based on the biopsy results you will receive a phone call from GI clinic in 2-3 weeks to review the pathology results AND/OR your results will be faxed to your Primary care physician. - Return to primary care physician. Zeb Dennis MD Zeb Dennis MD 09/23/2018 1:13:04 PM This report has been signed electronically. Number of Addenda: 0 Note Initiated On: 09/23/2018 12:26 PM Estimated Blood Loss: Estimated blood loss: none.
--- NOTE | 2018-09-23 13:19 | ROOR ---
Patient Name: Anjelica eKy Procedure Date: 09/23/2018 12:26 PM Date of : 1980 Age: 38 Room: [facility] Gender: Female Note Status: Finalized Procedure: Upper GI endoscopy Indications: Suspected gastro-esophageal reflux disease, Hematemesis, Nausea with vomiting Providers: Zeb Dennis MD Referring MD: Drew BULL MD Requesting Provider: Medicines: Monitored Anesthesia Care Complications: No immediate complications. Procedure: Pre-Anesthesia Assessment: - Prior to the procedure, a History and Physical was performed, and patient medications and allergies were reviewed. The patient is competent. The risks and benefits of the procedure and the sedation options and risks were discussed with the patient. All questions were answered and informed consent was obtained. Patient identification and proposed procedure were verified by the physician, the nurse and the anesthesiologist in the procedure room. Mental Status Examination: alert and oriented. Airway Examination: normal oropharyngeal airway and neck mobility. Respiratory Examination: clear to auscultation. CV Examination: normal. Prophylactic Antibiotics: The patient does not require prophylactic antibiotics. Prior Anticoagulants: The patient has taken no previous anticoagulant or antiplatelet agents. ASA Grade Assessment: III - A patient with severe systemic disease. After reviewing the risks and benefits, the patient was deemed in satisfactory condition to undergo the procedure. The anesthesia plan was to use monitored anesthesia care (MAC). Immediately prior to administration of medications, the patient was re-assessed for adequacy to receive sedatives. The heart rate, respiratory rate, oxygen saturations, blood pressure, adequacy of pulmonary ventilation, and response to care were monitored throughout the procedure. The physical status of the patient was re-assessed after the procedure. The Endoscope was introduced through the mouth, and advanced to the efferent jejunal loop. The upper GI endoscopy was accomplished without difficulty. The patient tolerated the procedure well. Findings: The Z-line was irregular and was found 34 cm from the incisors. Evidence of a gastric bypass was found. A gastric pouch with a small size was found. The staple line appeared intact. The gastrojejunal anastomosis was characterized by edema, erythema, inflammation and a disrupted staple line. This was traversed. The jejunojejunal anastomosis was characterized by healthy appearing mucosa. The [id number] limb was not examined as it could not be found. Biopsies were taken with a cold forceps for histology. For hemostasis, two hemostatic clips were successfully placed. There was no bleeding at the end of the procedure. The examined jejunum was normal. The STOREY capsule with delivery system was introduced through the mouth and advanced into the esophagus, such that the STOREY pH capsule was positioned 28 cm from the incisors, which was 6 cm proximal to the GE junction. Suction was applied to the well of the STOREY pH capsule to suck in the adjacent mucosa of the esophagus using the external vacuum pump set at a minimum vacuum pressure of 550 mmHg for 30 seconds. The STOREY pH capsule was then deployed by depressing the plunger on top of the handle to advance the locking pin into the mucosa, thereby attaching the capsule to the esophagus. The plunger was then rotated a quarter turn clockwise to release the capsule from the delivery system. The delivery system was then withdrawn. Endoscopy was utilized for probe placement and diagnostic evaluation. The scope was reinserted to evaluate placement of the STOREY capsule. Visualization showed the STOREY capsule to be in an appropriate position. Impression: - Z-line irregular, 34 cm from the incisors. - Gastric bypass with a small-sized pouch and intact staple line. Gastrojejunal anastomosis characterized by edema, erythema, inflammation and a disrupted staple line. Biopsied. Clips were placed. - Normal examined jejunum. - The STOREY pH capsule was positioned 28 cm from the incisors, which was 6 cm proximal to the GE junction. Recommendation: - Patient has a contact number available for emergencies. The signs and symptoms of potential delayed complications were discussed with the patient. Return to normal activities tomorrow. Written discharge instructions were provided to the patient. - Advance diet as tolerated. - Follow an antireflux regimen. - Await pathology results. - Based on the biopsy results you will receive a phone call from GI clinic in 2-3 weeks to review the pathology results AND/OR your results will be faxed to your Primary care physician. - Return to primary care physician. Zeb Dennis MD Zeb Dennis MD 09/23/2018 1:18:55 PM This report has been signed electronically. Number of Addenda: 0 Note Initiated On: 09/23/2018 12:26 PM Estimated Blood Loss: Estimated blood loss was minimal.
[2018-09-23 13:46] VITALS: BP 133/83
== END 2018-09-23 13:29 | disposition home or self-care (01) ==
LOC: M OPP 11:06
PROVIDERS: ATTEND Internal Medicine Gastroenterology
DX: K64.8 Other hemorrhoids (principal); K52.9 Noninfective gastroenteritis and colitis, unspecified; K92.1 Melena; K63.5 Polyp of colon; K22.8 Other specified diseases of esophagus; Z98.84 Bariatric surgery status; K95.89 Other complications of other bariatric procedure; K92.0 Hematemesis; Z79.891 Long term (current) use of opiate analgesic; Z79.899 Other long term (current) drug therapy; Z88.0 Allergy status to penicillin; Z88.5 Allergy status to narcotic agent; Z88.8 Allergy status to other drugs, medicaments and biological substances; Z91.048 Other nonmedicinal substance allergy status; Z80.0 Family history of malignant neoplasm of digestive organs

== ENCOUNTER → 2018-11-30 | Outpatient (REF) | payer OTHER, MEDICAID ==
[~2018-11-30] MED LIST changes: -LIDOCAINE 2% INJ 100 MG/5 ML SDV (FOR ANES.) As Ordered ONE; +MECL1CHW PO; -MECL1CHW2 PO; -NS 1,000 ML IV ONE; -PEPC1TAB2 PO; +PEPC40TA12 PO; -PROPOFOL 200 MG/20 ML VIAL As Ordered ONE; +VITA100018 PO; -VITA100072 PO
[2018-11-30 17:40] LABS: HEMOGLOBIN A1c 4.9 %
[2018-11-30 17:58] LABS: HCG, SERUM QUALITATIVE NEGATIVE (NEGATIVE)
== END ==
LOC: M SFHCLERA 14:16
PROVIDERS: ATTEND Family Medicine
DX: N92.6 Irregular menstruation, unspecified (principal); R55 Syncope and collapse

== ENCOUNTER → 2018-12-08 | Outpatient (CLI) | payer OTHER, MEDICAID ==
--- NOTE | 2018-12-09 04:11 | REP ---
Clinical: Right ovarian cyst . Technique: Transabdominal pelvic ultrasound followed by transvaginal examination for better evaluation of the endometrium and adnexa with color Doppler evaluation of the ovaries. Findings: Bladder is unremarkable and measures 7.1 x 3.3 x 2.9 cm . Heterogeneous anteverted uterus measures 7.0 x 3.0 x 4.7 cm . The endometrial complex measures 11.0 mm thickness. Possible small sub centimeter right intramural fibroid measuring 8 mm. Bilateral ovaries are normal in appearance and vascularity without evidence for torsion. Right ovary measures 4.6 x 3.0 x 2.7 cm with 2.4 cm and 1.8 cm hemorrhagic cysts ; R I = 0.58. Left ovary measures 2.6 x 1.6 x 2.3 cm ; R I = 0.48. No pelvic fluid or adnexal mass lesion . Impression: 1. Possible subcentimeter uterine fibroid. 2. Previously noted left ovarian septated cyst appears to have resolved. Current examination demonstrates to physiologic hemorrhagic cyst in the right ovary. Electronically Signed by Wm Kothari MD 12/09/2018 04:02 A
== END ==
LOC: M LRY 13:36
PROVIDERS: ATTEND Family Medicine
DX: N83.291 Other ovarian cyst, right side (principal)

== ENCOUNTER → 2018-12-10 | Outpatient (REF) | payer OTHER, MEDICAID | LOC: M SFHCLERA 14:57 | PROVIDERS: ATTEND Nurse Practitioner Family | DX: J00 Acute nasopharyngitis [common cold] (principal) ==

== ENCOUNTER → 2018-12-22 | Outpatient (CLI) | payer OTHER ==
--- NOTE | 2018-12-22 14:29 | REP ---
MAXILLOFACIAL CT STUDY WITHOUT CONTRAST: HISTORY: Unspecified disturbance of smell and taste. Rule out anterior skull base neoplasm. CT FINDINGS: The frontal sinuses are clear. There is mild mucosal thickening in several right ethmoid air cells. The left ethmoid sinuses are clear. Sphenoid aeration is normal. There are is a small mucous retention cyst and some mild mucosal thickening in the right maxillary sinus. The ostiomeatal complexes are patent. Nasal ethmoid recesses are unremarkable. Nasal turbinate soft tissues are symmetric. No nasal polyp is appreciated. Bony nasal septum is essentially in the midline. The shila taya is intact. The floor of the anterior cranial fossa is unremarkable. No intracranial mass lesion is apparent. No intraorbital abnormality is seen. IMPRESSION: Mild right ethmoid and right maxillary sinus mucosal changes. Otherwise negative maxillofacial CT study without contrast. Electronically Signed by Rod Ren MD 12/22/2018 03:43 P
== END ==
LOC: M RAD 13:36
PROVIDERS: ATTEND Otolaryngology
DX: R43.9 Unspecified disturbances of smell and taste (principal)

== ENCOUNTER → 2019-01-25 | Outpatient (CLI) | payer OTHER, MEDICAID ==
--- NOTE | 2019-01-26 03:40 | REP ---
Clinical: Neck pain. Paresthesia. Technique: AP, lateral, flexion/extension, bilateral oblique, and open-mouth views of the cervical spine. Findings: Evidence of prior anterior fixation at C5 - C7. Alignment and lordosis maintained. No acute fracture / compression injury or subluxation. No significant degenerative changes are identified. Oblique views demonstrate normal patent neural foramen. C1-C2 articulation and odontoid process are normal. Impression: Prior fixation. Otherwise relatively normal examination. Electronically Signed by Wm Kothari MD 01/26/2019 03:32 A
== END ==
LOC: M LRY 09:52
PROVIDERS: ATTEND Family Medicine
DX: Z98.1 Arthrodesis status (principal)

== ENCOUNTER → 2019-01-25 | Outpatient (REF) | payer OTHER, MEDICAID ==
[2019-01-25 16:57] LABS: BLOOD UREA NITROGEN 10 MG/DL (7-18); CALCIUM LEVEL 8.7 MG/DL (8.5-10.1); CARBON DIOXIDE LEVEL 29 MEQ/L (21-32); CHLORIDE LEVEL 106 MEQ/L (98-107); CREATININE FOR GFR 0.58 MG/DL (0.55-1.30); GLOMERULAR FILTRATION RATE > 60.0 (>60); GLUCOSE, FASTING 77 MG/DL (70-100); SODIUM LEVEL 139 MEQ/L (136-145)
[2019-01-25 16:59] LABS: FOLATE 8.5 NG/ML; VITAMIN B12 LEVEL 344 PG/ML
[2019-01-25 17:12] LABS: BASO # 0.1 10^3/uL (0.0-0.2); BASO % 1.2 % (0.0-1.0); EOS # 0.2 10^3/uL (0.0-0.50); EOS % 3.2 % (0.0-3.0); HEMATOCRIT 37.6 % (36.0-47.0); HEMOGLOBIN 11.7 g/dl (12.0-15.5); LYMPH # 2.1 10^3/uL (1.5-4.5); LYMPH % 31.8 % (24.0-44.0); MEAN CORPUSCULAR HEMOGLOBIN 27.7 pg (27.0-33.0); MEAN CORPUSCULAR HGB CONC 31.1 g/dl (32.0-36.5); MEAN CORPUSCULAR VOLUME 88.9 fl (80.0-96.0); MONO # 0.5 10^3/uL (0.0-0.8); MONO % 8.3 % (0.0-5.0); NEUTROPHILS # 3.6 10^3/uL (1.8-7.7); NEUTROPHILS % 55.3 % (36.0-66.0); PLATELET COUNT, AUTOMATED 488 10^3/uL (150-450); RED BLOOD COUNT 4.23 10^6/uL (4.00-5.40); WHITE BLOOD COUNT 6.5 10^3/uL (4.0-10.0)
== END ==
LOC: M SFHCLERA 09:33
PROVIDERS: ATTEND Family Medicine
DX: R55 Syncope and collapse (principal)

== ENCOUNTER → 2019-02-18 | Outpatient (CLI) | payer OTHER ==
--- NOTE | 2019-02-19 12:41 | REP ---
MRI CERVICAL SPINE WITHOUT CONTRAST: 02/18/2019. Comparison: X-ray 01/25/2019, MRI 11/15/2015. Clinical history: Status post anterior cervical discectomy and fusion C5 through C7. There is bilateral upper extremity pain with numbness after trauma to the back of her neck. upper neck. Technique: Sagittal T1, T2 and STIR; axial T1 and T2 sequences. Findings. Since the previous MRI there has been a C5-C7 anterior cervical discectomy and fusion. Vertebral bodies at those levels obscured by the magnetic susceptibility artifact. There is slight loss of the lordosis of the cervical spine from the previous study. The C2-C4 and T1 and T2 vertebral body show normal marrow signal. There is slight loss of disc water signal at those upper three most disc levels. Disc water signal maintained at T1-T2. Craniocervical junction shows adequate subarachnoid space and no cerebellar tonsillar ectopia. Cervical cord shows no intrinsic signal abnormality, syrinx, atrophy or mass. At C2-3 and C3-4, there is no disc bulge herniation and no spinal or foraminal stenosis. At C4-5 minimal disc bulge without central canal stenosis. Foramina intact. At C5-6, there is no central canal stenosis or foraminal encroachment. At C6-7 there is posterior osteophytic ridging thinning ventral subarachnoid space and flattening the ventral cord surface. AP canal diameter 7.6 mm presenting some mild degree of central canal stenosis. Foramina are marginally adequate. At C7-T1, there is a small central disc protrusion thinning the ventral subarachnoid space. AP canal diameter 8 mm. No cord compression. Foramina appear adequate. Impression: 1. At C6-7 there is posterior osteophytic ridging causing central canal stenosis and some flattening of the ventral cord surface representing some mild cord compression with AP canal diameter 7.6 mm. Foramina marginally adequate. 2. At C7-T1 there is a central disc protrusion, small and not causing cord compression, only mild central canal stenosis. Foramina adequate. 3. Status post C5-C7 anterior cervical discectomy and fusion. No other findings. Electronically Signed by Cliff Ceron MD 02/19/2019 08:32 P
== END ==
LOC: M RAD 12:20
PROVIDERS: ATTEND Family Medicine
DX: M50.221 Other cervical disc displacement at C4-C5 level (principal); Z98.1 Arthrodesis status; M50.223 Other cervical disc displacement at C6-C7 level; M50.23 Other cervical disc displacement, cervicothoracic region

== ENCOUNTER → 2019-03-16 | Outpatient (CLI) | payer OTHER, MEDICAID ==
[2019-03-16 20:38] LABS: HEMATOCRIT 36.1 % (36.0-47.0); HEMOGLOBIN 11.2 g/dl (12.0-15.5)
== END ==
LOC: M LRY 15:40
PROVIDERS: ATTEND Orthopaedic Surgery
DX: Z01.818 Encounter for other preprocedural examination (principal); M17.11 Unilateral primary osteoarthritis, right knee; M23.41 Loose body in knee, right knee

== ENCOUNTER → 2019-03-16 | Outpatient (CLI) | payer OTHER ==
--- NOTE | 2019-03-21 19:51 | SLEEPHOME ---
DATE OF PROCEDURE: 03/16/2019 Ordered by: BHAVESH Marx Diagnostic home sleep testing was performed due to concern for the obstructive sleep apnea syndrome in this patient with a history of snoring and nonrestorative sleep. For testing a nocturnal T3 respiratory monitoring device was used. Continuous record was made of pulse, oxygen saturation, airflow, chest, abdominal strain and body position. 9 hours and 59 minutes of data were reviewed. There were 8 hours and 39 minutes marked as time in bed. During the interval marked time in bed there were only 13 respiratory events identified of 10 seconds in duration or greater for a respiratory event index of 1.5. Baseline pulse rate 66 beats per minute, pulse rate ranged 48-103. Baseline saturation 95%. There was one oxygen desaturation which may have been artifactual to 82%. Testing was performed in both the supine and nonsupine positions. IMPRESSION Normal diagnostic home sleep test with snoring noted.
== END ==
LOC: M SLEEP HO 12:54
PROVIDERS: ATTEND Nurse Practitioner Family
DX: R06.83 Snoring (principal)

== ENCOUNTER → 2019-05-11 | Outpatient (CLI) | payer OTHER ==
--- NOTE | 2019-05-11 15:24 | REP ---
MRI brain: 05/11/2019. Indication: Paresthesia. Comparison: 11/24/2013. Technique: Multiplanar short and long TR sequences of the brain were obtained without IV Gadolinium. Findings: There are no areas of restricted diffusion. There are two stable punctate foci of elevated left frontal lobe T2 white matter signal. There is no intracranial mass effect, hydrocephalus or significant hemorrhage. The large intracranial flow voids are unremarkable. No significant fluid is noted within the paranasal sinuses or mastoid air cells. Stable and not likely clinically significant partially empty sella is noted. Impression: No acute intracranial process. A couple nonspecific punctate foci of elevated white matter signal with considerations including sequelae of migraine headaches, earlier than expected sequelae of chronic microangiopathic ischemic disease (history of hypertension or diabetes) or additional less likely etiologies. Electronically Signed by Manny Ramirez DO 05/11/2019 03:16 P
--- NOTE | 2019-05-11 15:38 | REP ---
MRI thoracic spine: 05/11/2019. Indication: Paresthesia. Comparison: 11/15/2015. Technique: Multiplanar short and long TR sequences of the thoracic spine were obtained without IV Gadolinium. Findings: Thoracic vertebral body alignment is anatomic. No worrisome marrow signal is present. The visualized cord appears normal. Tiny posterior central C7/T1 disc protrusion is noted. Minimal disc bulging is otherwise noted throughout the thoracic spine. There are no areas of significant spinal canal / neural foraminal narrowing. Impression: No significant thoracic disc herniation or areas of significant spinal canal / neural foraminal narrowing. Electronically Signed by Manny Ramirez DO 05/11/2019 03:30 P
== END ==
LOC: M RAD 13:02
PROVIDERS: ATTEND Psychiatry & Neurology Neurology
DX: M50.23 Other cervical disc displacement, cervicothoracic region (principal); R20.2 Paresthesia of skin; G43.009 Migraine without aura, not intractable, without status migrainosus; M54.89 Other dorsalgia

== ENCOUNTER → 2019-06-15 | Outpatient (CLI) | payer OTHER, MEDICAID ==
--- NOTE | 2019-06-15 14:49 | REP ---
Four views right foot: 06/15/2019. Indication: Right foot pain. Comparison: None. Findings: There is no acute fracture, subluxation or dislocation. Anterior and posterior calcaneal spurs are present. No lytic or blastic osseous lesions are detected. Impression: No acute osseous injury of the right foot. Electronically Signed by Manny Ramirez DO 06/15/2019 02:40 P
== END ==
LOC: M LRY 13:52
PROVIDERS: ATTEND Family Medicine
DX: M79.671 Pain in right foot (principal)

== ENCOUNTER → 2020-04-17 | Outpatient (CLI) | payer MEDICARE, MEDICAID ==
[~2020-04-17] MED LIST changes: +CYCL-707 PO; -CYCL10TA PO; -ROPI1TAB PO; +ROPI1TAB3 PO
--- NOTE | 2020-04-22 11:57 | REP ---
MRI RIGHT SHOULDER WITHOUT CONTRAST HISTORY: Right shoulder and arm pain. COMPARISON RADIOGRAPHS: 01/15/2020. TECHNIQUE: Axial, oblique coronal, and oblique sagittal imaging planes are utilized. T1 and T2-weighted scans are included with and without fat saturation. MRI FINDINGS: There is osteoarthritic hypertrophy at the acromioclavicular (AC) joint mild in degree. There is mild marrow edema in the distal clavicle at the AC joint. Some inferior bony hypertrophy indents the musculotendinous junction of the supraspinatus. There is a tiny sliver of subacromial subdeltoid bursal fluid. There is slight swelling and increased signal intensity diffusely in the distal supraspinatus tendon on oblique coronal T1-weighted scans consistent with tendinitis tendinosis change. No focal cuff tear is appreciated. No labral tear is seen. Infraspinatus and subscapularis tendons appear intact. Biceps tendon is normal in position and appearance. IMPRESSION: Mild acromioclavicular (AC) joint osteoarthritis with marrow edema of the distal clavicle. Small subacromial subdeltoid bursal effusion. Mild tendinosis change in the supraspinatus. No focal cuff tear is seen. MTDD
== END ==
LOC: M RAD 11:08
PROVIDERS: ATTEND Family Medicine
DX: M19.012 Primary osteoarthritis, left shoulder (principal)

== ENCOUNTER → 2020-05-09 | Outpatient (CLI) | payer MEDICARE, OTHER ==
[2020-05-09 16:34] LABS: BASO # 0.1 10^3/uL (0.0-0.2); BASO % 0.9 % (0.0-1.0); EOS # 0.3 10^3/uL (0.0-0.5); EOS % 3.5 % (0.0-3.0); HEMATOCRIT 40.3 % (36.0-47.0); HEMOGLOBIN 12.6 g/dl (12.0-15.5); LYMPH % 26.5 % (24.0-44.0); MEAN CORPUSCULAR HEMOGLOBIN 29.4 pg (27.0-33.0); MEAN CORPUSCULAR HGB CONC 31.3 g/dl (32.0-36.5); MEAN CORPUSCULAR VOLUME 93.9 fl (80.0-96.0); MONO # 0.7 10^3/uL (0.0-0.8); MONO % 8.8 % (0.0-5.0); NEUTROPHILS # 4.4 10^3/uL (1.5-8.5); NEUTROPHILS % 59.9 % (36.0-66.0); PLATELET COUNT, AUTOMATED 482 10^3/uL (150-450); RED BLOOD COUNT 4.29 10^6/uL (4.00-5.40); WHITE BLOOD COUNT 7.4 10^3/uL (4.0-10.0)
[2020-05-09 17:02] LABS: ALBUMIN 3.7 GM/DL (3.2-5.2); ALT/SGPT 25 U/L (12-78); BILIRUBIN,TOTAL 0.3 MG/DL (0.2-1.0); BLOOD UREA NITROGEN 9 MG/DL (7-18); CALCIUM LEVEL 9.5 MG/DL (8.5-10.1); CARBON DIOXIDE LEVEL 27 MEQ/L (21-32); CHLORIDE LEVEL 106 MEQ/L (98-107); CHOLESTEROL LEVEL 186 MG/DL (<200); CHOLESTEROL RISK RATIO 2.695 (<5); CREATININE FOR GFR 0.65 MG/DL (0.55-1.30); GLOMERULAR FILTRATION RATE > 60.0 (>60); GLUCOSE, FASTING 71 MG/DL (70-100); HDL CHOLESTEROL 69 MG/DL (>40); IRON (FE) 49 UG/DL (50-170); LDL CHOLESTEROL 97 MG/DL (<100); NON-HDL-C 117 MG/DL; PERCENT SATURATION 8.8 % (13.2-45.0); POTASSIUM SERUM 4.4 MEQ/L (3.5-5.1); SODIUM LEVEL 139 MEQ/L (136-145); TOTAL IRON BINDING CAPACITY 556 UG/DL (250-450); TOTAL PROTEIN 7.1 GM/DL (6.4-8.2); TRIGLYCERIDES LEVEL 99 MG/DL (<150)
[2020-05-09 17:09] LABS: TOTAL 25(OH) VITAMIN D 20.9 NG/ML (30.0-100.0); VITAMIN B12 LEVEL 246 PG/ML (247-911)
[2020-05-09 17:37] LABS: HEMOGLOBIN A1c 5.3 %
[2020-05-18 08:08] LABS: VITAMIN A, RETINOL LEVEL 46.8 ug/dL (18.9-57.3); VITAMIN B1 LEVEL WHOLE BLOOD 137.8 nmol/L (66.5-200.0)
== END ==
LOC: M WUC 11:56
PROVIDERS: ATTEND Family Medicine
DX: Z98.84 Bariatric surgery status (principal); Z79.899 Other long term (current) drug therapy; M25.511 Pain in right shoulder; Z23 Encounter for immunization
CPT/HCPCS: 36415; 80053; 80061; 82306; 82607; 83036; 83550; 84425; 84590; 85025; 90682; G0008; G0463

== ENCOUNTER → 2020-06-12 | Outpatient (CLI) | payer MEDICARE, MEDICAID ==
--- NOTE | 2020-06-12 15:35 | REPVR ---
PROCEDURE INFORMATION: Exam: MR Cervical Spine Without Contrast Exam date and time: 06/12/2020 1:56 PM Age: 39 years old Clinical indication: Neck pain; Prior surgery; Surgery date: 6+ months; Surgery type: Fusion; Additional info: Neck pain, HX cervical disc protrusion, arm weakness TECHNIQUE: Imaging protocol: Multiplanar magnetic resonance images of the cervical spine without contrast. COMPARISON: MRI-Spine,Cervical without con 02/18/2019 12:59 PM FINDINGS: Vertebrae: There is straightening of the cervical spine which could be secondary to positioning or muscle spasm. Examination reveals the patient to be status post anterior spinal fusion at C5-C7 levels. Disc prosthesis is seen stabilizing the intervening disc spaces.Metallic inhomogeneity artifact from surgical hardware limits evaluation in this region. Otherwise, The cervical vertebral bodies are normal height and alignment.No acute fracture or dislocation is seen.The atlantoaxial articulation is normal. Spinal cord: The cervical spinal cord is normal in thickness and signal intensity.There is no cord compression or intramedullary signal abnormality. Spinal epidural space: There is no evidence for epidural mass or hemorrhage. C2-C3: No significant disc disease. No significant spinal stenosis. C3-C4: There is no significant degenerative disc herniation.The spinal canal and neural foramina are patent and without significant stenosis. C4-C5: There is a mild diffuse posterior bulge causing mild effacement of the thecal sac. 3 mm perineural cyst is noted in the left neural foramen.There is no evidence of spinal canal narrowing.There is mild left foraminal stenosis. C5-C6: Disc prosthesis is seen stabilizing the intervening disc spaces.The spinal canal and neural foramina are patent and without significant stenosis. C6-C7: Disc prosthesis is seen stabilizing the intervening disc spaces. There is diffuse endplate spurring.There is bilateral uncovertebral hypertrophic changes.The facet joints demonstrate mild degenerative hypertrophy and sclerosis.There is no evidence of spinal canal narrowing.There is mild bilateral foraminal stenosis. C7-T1: There is a mild diffuse posterior bulge causing mild effacement of the thecal sac.The facet joints demonstrate mild degenerative narrowing and sclerosis. 6 mm T2 hyperintense perineural cyst is seen in the right neural foramen. This causes severe right foraminal stenosis.There is no evidence of spinal canal narrowing. Brain: The visualized brain parenchyma is unremarkable. Vertebral arteries: Expected flow voids in the vertebral arteries. Soft tissues: The prevertebral soft tissues appear normal. IMPRESSION: 1. MRI of the cervical spine reveals multilevel degenerative spondylitic changes and degenerative disc disease as described above. 2. Examination reveals the patient to be status post anterior spinal fusion at C5-C7 levels. Disc prosthesis is seen stabilizing the intervening disc spaces.Metallic inhomogeneity artifact from surgical hardware limits evaluation in this region. Otherwise, The cervical vertebral bodies are normal height and alignment.No acute fracture or dislocation is seen.The atlantoaxial articulation is normal. Electronically signed by: Shailesh Maya On 06/12/2020 15:35:55 PM
== END ==
LOC: M RAD 12:35
PROVIDERS: ATTEND Family Medicine
DX: M54.2 Cervicalgia (principal)

== ENCOUNTER → 2020-07-03 | Outpatient (CLI) | payer MEDICARE, MEDICAID | LOC: M LABSMTC 14:07 | PROVIDERS: ATTEND Family Medicine | DX: Z20.828 Contact with and (suspected) exposure to other viral communicable diseases (principal) ==

== ENCOUNTER 2020-08-01 12:00 | Day surgery (SDC) | payer MEDICARE, MEDICAID ==
[~2020-08-01] VITALS: Ht 152.4 cm; Wt 114.3 kg
[~2020-08-01 12:00] MED LIST changes: +AMIT25TA17 PO; +CHOL4POW PO; +D 50CAP2 PO; +D-50CAP PO; +FAMO40TA3 PO; +FLUT15.819; +HYDR50TA70 PO; +MAGN400T2 PO; +MECL1TAB31 PO; +MISO100T22 PO; +MISO200T56 PO; +NS 1,000 ML IV ONE; +ONDA-83 PO; +SUCR1TAB56 PO; +TRAZ-189 PO; +VITMTA PO; +vitamin B12 PO
--- OUTSIDE RECORDS SUMMARY | 2020-08-01 12:06 | CCD ---
Author Author [facility] Organization [facility] Address Unknown Phone Unavailable Care Team Providers Care Tarper Name Role Phone Lloyd Vaca Unavailable PROBLEMS Type Condition ICD9-CM Code XMU41-TO Code Onset Dates Condition S tatus SNOMED Code Notes Problem Neuropathy of left lower extremity G57.92 Activ e 177719616 Problem Sacroiliac joint pain M53.3 Active 008836259 Problem Spondylosis without myelopathy or radiculopathy, cervical region M47.812 Active 847237120 Problem Cervicalgia M54.2 Active 34663186 Problem Myalgia M79.1 Active 33022973 Problem Altered mental status, unspecified altered mental stat us type R41.82 Active 315217374 Problem Sacroiliitis, not elsewhere classified M46.1 A ctive 217241503 Problem Obesity, morbid, BMI 40.0-49.9 E66.01 Active 2 88742543 Problem Spondylosis without myelopathy or radicu lopathy, cervicothoracic region M47.813 Active 295120203 Problem Excessive daytime sleepiness G47.19 Active 141 937317889 Problem Spondylosis without myelopathy or radiculopathy, thoracic region M47.814 Active 763780112 Problem Intervertebral disc disorders with radiculopathy , lumbosacral region M51.17 Active 3801092 Problem Protruded lumbar disc M51.26 Active 436090503 Problem Arthritis of knee, left M17.12 Active 52759614 05886879 Problem Other obesity due to excess calories E66.09 Act zeferino 425467126 Problem Vitamin D insufficiency E55.9 Active 86239791 4 Problem Other specified postprocedural states Z98.890 Ac tive 841013478 Problem Anxiety F41.9 Active 34843728 Problem Osteoarthritis of spine with radiculopathy, cervical regio n M47.22 Active 744878921 Problem Fibromyalgia M79.7 Active 232389566 Problem Iron deficiency anemia, unspecified iron deficiency an emia type D50.9 Active 95875504 Problem Cervical disc displacement M50.20 Active 91701 4002 Problem Blood loss anemia D50.0 Active 167857565 Problem Restless leg syndrome G25.81 Active 14148732 Problem Right carpal tunnel syndrome G56.01 Active 293 011483729757 Problem Cervical disc disorder with radiculopathy, cervi cothoracic region M50.13 Active 219313078 Problem Other chronic pain G89.29 Active 37408592 Problem VERONA (generalized anxiety disorder) F41.1 Activ e 43146919 Problem Late period N92.6 Active 23601539 Problem Anxiety about health F41.8 Active 599459913 Problem Other intervertebral disc displacement, lumbosacral region M51.27 Active 01263773 Problem Paresthesias R20.2 Active 03225765 Problem Vaginal bleeding N93.9 Active 339010184 Problem Body mass index (BMI) of 37.0-37.9 in adult Z68.37 Active 042597581 Problem Body mass index (BMI) 45.0-49.9, adult Z68.42 A ctive 858045591 Problem Morbid (severe) obesity due to excess calories E66 .01 Active 849782788 Problem Moderate episode of recurrent major depressive disorder F33.1 Active 309993097 Problem Primary osteoarthritis of right knee M17.11 Act zeferino [id number] ALLERGIES Allergen (clinical drug ingredient) Drug/Non Drug Allergy do cumented on EMR Reaction Allergy Type Onset Date Status pregabalin Lyrica(NDC Code:[address]-31) facial swelling w ithout angioedema Drug Allergy Active omeprazole Omeprazole(NDC Code:[address]-23) angioedema Drug Allergy Active Adhesive Bandages Rash Drug Allergy Activ e clindamycin Clindamycin HCl(NDC Code:[address]-29) Vomit, b urns in "pouch" Drug Allergy Active ibuprofen Ibuprofen(NDC Code:[address]-20) gastric bypass/ulcer s Drug Allergy Active ENCOUNTERS from 1980 to 2020-07-19 Encounter [facility] Date [facility] [address] [place] [address] Jul, Lloyd Vaca Other chronic pain G89.29 IMMUNIZATIONS Vaccine Route Administration Date Status Influenza (18 yrs & older) Flublok IM Intramuscular Apr 17, 2019 Administered Phenergran 25mg/1mL (Promethazine) IM Intramuscular Apr 02 7 Administered Vitamin B-12 1000mcg/1mL (Cyanocobalamin) IM Intramuscular Jul Administered MMR 0.5mL SC May 18, 2013 Administered Influenza (6mo & up) Fluzone IM Intramuscular May 02, 2018 Ad ministered Influenza (6mo & up) Fluzone Unknown Apr 06, 2016 Adm inistered Influenza (18 yrs & older) Flublok IM Intramuscular May 09, 2020 Administered Influenza (6mo & up) Fluzone Unknown Jun 21, 2015 Oth ers Influenza (6mo & up) Fluzone Unknown Apr 04, 2015 Adm inistered Influenza (6mo & up) Fluzone Unknown Apr 18, 2014 Adm inistered SOCIAL HISTORY Tobacco Use: Social History Observation Description Date Details (start date - stop date) Never Smoker Sex Assigned At : Social History Observation Description Sex Assigned At Unknown Education: Question Answer Notes Level of Education: College Audit Question Answer Notes Total Score: 2 Interpretation: Alcohol Education Language: Question Answer Notes Languages spoken: [place] Pentecostalism: Question Answer Notes Pentecostalism 33 None Sexual Hx: Question Answer Notes Had sex in the last 12 months (vaginal, oral, or anal)? Yes Have you ever had an STD? No with Men only Drug and Alcohol Question Answer Notes Total Score: 0 Interpretation: No problems reported Alcohol Screening: Question Answer Notes Did you have a drink containing alcohol in the past year? Ye s Points 0 Interpretation Negative How often did you have six or more drinks on one occas ion in the past year? Never (0 points) How many drinks did you have on a typica l day when you were drinking in the past year? 1 or 2 (0 points) How often did you have a drink containing alcohol in t he past year? Never (0 points) BMI Care Goal Follow-Up Question Answer Notes Above Normal BMI Follow-Up Dietary management educatio n, guidance, and counseling Tobacco Use: Question Answer Notes Are you a: never smoker REASON FOR REFERRAL No Information VITAL SIGNS No information MEDICATIONS Medication SIG (Take, Route, Frequency, Duration) Notes Start Da te End Date Status Tramadol HCl 50 MG 1 tablet as needed Orally bid for 30 days Dec, Active Glucometer Dx: R55. Check once daily for 30 day(s) November, Active TraZODone HCl 100 MG 1 tablet at bedtime Orally Once a day Sep, Active Bariatric Cane - Dispense offset quad cane. m 17.11 , e66.01. dispense one cane, use as directed for 30 Days May, Not- Taking Triamcinolone Acetonide 0.025 % 1 application to affec cortney area of chest Externally Twice a day for 14 Days May, Not-Taking Diclofenac Sodium 1 % as directed Externally Not-Taking Lancets - dx: r55. check once daily Daily for 30 days November, Active Tylenol 500 mg 2 tablets Orally Twice a day Active Saline Nasal [place] 0.65 % 2 sprays in each nostril as needed Nasally every 2 hrs Active Topiramate 100 MG 1 tab Orally bid Jun, Not-Taking Cetirizine HCl 10 MG 1 tablet Orally Once a day for 30 day(s) Mar, Not-Taking Tizanidine HCl 4 MG 1 tablet Orally Three times a day Active Multivitamin Adult - 2 tablets Orally Daily Active Fluticasone Propionate 50 MCG/ACT 2 sprays in each nostril Nasal ly Once a day Active Sudafed 12 Hour 120 MG 1 tablet as needed Orally Daily for 10 da y(s) Mar, Not-Taking HydrOXYzine HCl 25 MG 1 tablet as needed Orally every 8 hrs for 14 days November, Not-Taking Triamcinolone Acetonide 0.025 % 1 application to affec cortney area of the neck Externally Twice a day for 14 Days Not-Taking Ferrous Sulfate 325 (65 Fe) MG 1 tablet Orally Once a day for 90 days Not-Taking 28-0.8 MG 1 Orally daily No t-Taking Cyanocobalamin 1000 MCG/ML 1 ml Injection Once a week for 4 weeks, followed by once a month for 30 day(s) May, Not-T aking Ropinirole HCl 1 MG 1 tablet Orally BID Active Acetaminophen 500 MG 2 tablets as needed Orally every 6 hrs for 10 day(s) Apr, Not-Taking Vitamin B12 1000mcg 1 tablet Orally Once a day Active Benzonatate 200 MG 1 capsule Orally Three times a day as needed for cough for 30 day(s) Dec, Not-Taking Amitriptyline HCl 25 MG 1 tablet at bedtime Orally Once a day for 90 Not-Taking Vitamin D-3 5000 UNIT Orally Daily Active Lidocaine 4 % 1 application to affected ar ea as needed Externally Three times a day Active Blood Glucose Test - dx: r55. check once daily In Vitro Daily fo r 30 days November, Active Ferrous Sulfate 325 (65 Fe) MG 1 tablet Orally Once a day for 30 day(s) May, Not-Taking Pepcid 40 MG 1 tablet Orally bid Act zeferino Meclizine HCl 25 MG 1 tablet Orally every 6hrs as needed dizzine ss Apr, Active Zofran 4 mg 1 tab(s) Orally tid prn for 30 day(s) Feb, Active Cymbalta 60 MG 1 capsule Orally Once a day for 90 days Active HydrOXYzine HCl 50 MG 1 tablet as needed Orally Daily for 90 day s Jan, Active Magnesium Active Carafate 1 GM 1 tablet on an empty stomach Orally Twice a day Active Misoprostol 100 MCG 1 tablet with meals and at bedtime Orall y Four times a day Active PROCEDURES No Information RESULTS No Results REASON FOR VISIT refill MEDICAL (GENERAL) HISTORY Type Description Date Medical History childhood h/o asthma (no flares since ag e 19) Medical History h/o cholelithasis s/p cholecystectomy Medical History h/o kidney stones Medical History obesity Medical History infertility Medical History h/o vitamin b12 deficiency Medical History Marginal ulcers x2 Medical History Optic Neuritis Medical History bladder dysfunction Medical History Miscarriage Medical History Fibromyalgia Surgical History cholecystectomy 2009 Surgical History gastric bypass 2014 Surgical History endoscopies-multiple Surgical History colonoscopy 2016 Surgical History carpal tunnel surgery 12/21/16 Surgical History Anterior cervical discectomy with fusion - [facility] 03/30/2017 Surgical History left knee arthroscopy 05/2018 Surgical History right knee reoairs 2019 Hospitalization History see surgeries Hospitalization History ulcers 02/16-03/19 Goals Section No Information Health Concerns No Information MEDICAL EQUIPMENT No Information MENTAL STATUS No Information FUNCTIONAL STATUS No Information ASSESSMENTS Encounter Date Diagnosis Assessment Notes Treatment Notes Treatm ent Clinical Notes Jul, Other chronic pain (ICD-10 - G89.29) PLAN OF TREATMENT Medication Medication Name Sig Start Date Stop Date Tramadol HCl 50 MG 1 tablet as needed Orally bid for 30 days Dec, Next Appt Details Provider Name:Lloyd Vaca, 2020-08-13 11:30:00 AM, [address] [place], [address], Insurance Providers Payer Name Payer Address Payer Phone Insured Name Patient Relati onship to Insured Coverage Start Date Coverage End Date MEDICAID [email or web address] [address] [facility] [id number] [phone] SILAS GUZMÁN self MEDICARE Part A and B [address] [facility] [phone] SILAS GUZMÁN self
--- OUTSIDE RECORDS SUMMARY | 2020-08-01 12:06 | CCD ---
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 Activ e 261700190 Problem Sacroiliac joint pain M53.3 Active 013196783 Problem Spondylosis without myelopathy or radiculopathy, cervical region M47.812 Active 558545413 Problem Cervicalgia M54.2 Active 18443044 Problem Myalgia M79.1 Active 80979969 Problem Altered mental status, unspecified altered mental stat us type R41.82 Active 804626927 Problem Sacroiliitis, not elsewhere classified M46.1 A ctive 608849644 Problem Obesity, morbid, BMI 40.0-49.9 E66.01 Active 2 63150093 Problem Spondylosis without myelopathy or radicu lopathy, cervicothoracic region M47.813 Active 728804768 Problem Excessive daytime sleepiness G47.19 Active 141 533680806 Problem Spondylosis without myelopathy or radiculopathy, thoracic region M47.814 Active 301291930 Problem Intervertebral disc disorders with radiculopathy , lumbosacral region M51.17 Active 7244890 Problem Protruded lumbar disc M51.26 Active 388192468 Problem Arthritis of knee, left M17.12 Active 88378534 20193284 Problem Other obesity due to excess calories E66.09 Act zeferino 988333779 Problem Vitamin D insufficiency E55.9 Active 84869492 4 Problem Other specified postprocedural states Z98.890 Ac tive 472878810 Problem Anxiety F41.9 Active 65747940 Problem Osteoarthritis of spine with radiculopathy, cervical regio n M47.22 Active 687058533 Problem Fibromyalgia M79.7 Active 892849552 Problem Iron deficiency anemia, unspecified iron deficiency an emia type D50.9 Active 06297458 Problem Cervical disc displacement M50.20 Active 54395 4002 Problem Blood loss anemia D50.0 Active 113441956 Problem Restless leg syndrome G25.81 Active 44453642 Problem Right carpal tunnel syndrome G56.01 Active 293 107016432537 Problem Cervical disc disorder with radiculopathy, cervi cothoracic region M50.13 Active 617067195 Problem Other chronic pain G89.29 Active 22732478 Problem VERONA (generalized anxiety disorder) F41.1 Activ e 33838531 Problem Late period N92.6 Active 07850026 Problem Anxiety about health F41.8 Active 262262340 Problem Other intervertebral disc displacement, lumbosacral region M51.27 Active 15201825 Problem Paresthesias R20.2 Active 61560933 Problem Vaginal bleeding N93.9 Active 438617986 Problem Body mass index (BMI) of 37.0-37.9 in adult Z68.37 Active 166736407 Problem Body mass index (BMI) 45.0-49.9, adult Z68.42 A ctive 754413933 Problem Morbid (severe) obesity due to excess calories E66 .01 Active 276940736 Problem Moderate episode of recurrent major depressive disorder F33.1 Active 934191943 Problem Primary osteoarthritis of right knee M17.11 Act zeferino [id number] ALLERGIES Allergen (clinical drug ingredient) Drug/Non Drug Allergy do cumented on EMR Reaction Allergy Type Onset Date Status pregabalin Lyrica(NDC Code:[address]-97) facial swelling w ithout angioedema Drug Allergy Active omeprazole Omeprazole(NDC Code:[address]-10) angioedema Drug Allergy Active Adhesive Bandages Rash Drug Allergy Activ e clindamycin Clindamycin HCl(NDC Code:[address]-34) Vomit, b urns in "pouch" Drug Allergy Active ibuprofen Ibuprofen(NDC Code:[address]-80) gastric bypass/ulcer s Drug Allergy Active ENCOUNTERS from 1980 to 2020-07-10 Encounter [facility] [address] [place] [address] Jun, Lloyd Vaca IMMUNIZATIONS Vaccine Route Administration Date Status Influenza (18 yrs & older) Flublok IM Intramuscular May 09, 2020 Administered Phenergran 25mg/1mL (Promethazine) IM Intramuscular Apr 02 7 Administered MMR 0.5mL SC May 18, 2013 Administered Influenza (18 yrs & older) Flublok IM Intramuscular Apr 17, 2019 Administered Influenza (6mo & up) Fluzone IM Intramuscular May 02, 2018 Ad ministered Influenza (6mo & up) Fluzone Unknown Apr 06, 2016 Adm inistered Vitamin B-12 1000mcg/1mL (Cyanocobalamin) IM Intramuscular Jul Administered Influenza (6mo & up) Fluzone Unknown [...] Education Language: Question Answer Notes Languages spoken: Guyanese Latter Day: Question Answer Notes Latter Day 33 None Sexual Hx: Question Answer Notes [...] Notes Start Da te End Date Status Bariatric Cane - Dispense offset quad cane. m 17.11 , e66.01. dispense one cane, use as directed for 30 Days May, Not- Taking Glucometer Dx: R55. Check once daily for 30 day(s) November, Active TraZODone HCl 100 MG 1 tablet at bedtime Orally Once a day Sep, Active Meclizine HCl 25 MG 1 tablet Orally every 6hrs as needed dizzine ss 10 Apr, 2014 Active Triamcinolone Acetonide 0.025 % 1 application to affec cortney area of chest Externally Twice a day for 14 Days May, Not-Taking Diclofenac Sodium 1 % as directed Externally Not-Taking Lancets - dx: r55. check once daily Daily for 30 days November, Active Tylenol 500 mg 2 tablets Orally Twice a day Active Saline Nasal [place] 0.65 % 2 sprays in each nostril [...] 28-0.8 MG 1 Orally daily No t-Taking Ropinirole HCl 1 MG 1 tablet Orally BID Active Zofran 4 mg 1 tab(s) Orally tid prn for 30 day(s) Feb, Active Cymbalta 60 MG 1 capsule Orally Once a day for 90 days Active Vitamin D-3 5000 UNIT Orally Daily Active Benzonatate 200 MG 1 capsule Orally Three times a day as needed for cough for 30 day(s) Dec, Not-Taking Pepcid 40 MG 1 tablet Orally bid Act zeferino Cyanocobalamin 1000 MCG/ML 1 ml Injection Once a week for 4 weeks, followed by once a month for 30 day(s) May, Not-T aking Lidocaine 4 % 1 application to affected ar ea as needed Externally Three times a day Active Blood Glucose Test - dx: r55. check once daily In Vitro Daily fo r 30 days November, Active Ferrous Sulfate 325 (65 Fe) MG 1 tablet Orally Once a day for 30 day(s) May, Not-Taking Acetaminophen 500 MG 2 tablets as needed Orally every 6 hrs for 10 day(s) Apr, Not-Taking Vitamin B12 1000mcg 1 tablet Orally Once a day Active Amitriptyline HCl 25 MG 1 tablet at bedtime Orally Once a day for 90 Not-Taking Magnesium Active Carafate 1 GM 1 tablet on an empty stomach Orally Twice a day Active HydrOXYzine HCl 50 MG 1 tablet as needed Orally Daily for 90 day s Jan, Active Misoprostol 100 MCG 1 tablet with meals and at bedtime Orall y Four times a day Active Tramadol HCl 50 MG 1 tablet as needed Orally bid for 30 days Dec, Active PROCEDURES No Information RESULTS No Results REASON FOR VISIT Medication approval MEDICAL (GENERAL) HISTORY Type Description Date Medical [...] History cholecystectomy 2009 Surgical History gastric bypass 2011, 2014 Surgical History endoscopies-multiple Surgical History colonoscopy 2016 Surgical History carpal tunnel surgery 12/21/16 Surgical History Anterior cervical discectomy with fusion - [facility] 03/30/2017 Surgical History left knee arthroscopy 05/2018 Surgical History right knee reoairs 2019 Hospitalization History see surgeries Hospitalization History ulcers 02/16-03/19 Goals Section No Information Health Concerns No Information MEDICAL EQUIPMENT No Information MENTAL STATUS No Information FUNCTIONAL STATUS No Information ASSESSMENTS No Information PLAN OF TREATMENT Medication Medication Name Sig Start Date Stop Date Tramadol HCl 50 MG 1 tablet as needed Orally bid for 30 days 28 Gerard, 2018 Next Appt Details Provider Name:Lloyd Vaca, 2020-08-13 11:30:00 AM, [address] [place], [address], Insurance Providers Payer Name Payer Address Payer Phone Insured Name Patient Relati onship to Insured Coverage Start Date Coverage End Date MEDICAID [employer] [address] [facility] [id number] SILAS GUZMÁN self MEDICARE Part A and B [address] [facility] [phone] [phone] SILAS GUZMÁN self
--- OUTSIDE RECORDS SUMMARY | 2020-08-01 12:06 | CCD ---
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 Activ e 098750973 Problem Sacroiliac joint pain M53.3 Active 126824926 Problem Spondylosis without myelopathy or radiculopathy, cervical region M47.812 Active 587208931 Problem Cervicalgia M54.2 Active 32311398 Problem Myalgia M79.1 Active 68673999 Problem Altered mental status, unspecified altered mental stat us type R41.82 Active 292648503 Problem Sacroiliitis, not elsewhere classified M46.1 A ctive 081929970 Problem Obesity, morbid, BMI 40.0-49.9 E66.01 Active 2 00601376 Problem Spondylosis without myelopathy or radicu lopathy, cervicothoracic region M47.813 Active 347317988 Problem Excessive daytime sleepiness G47.19 Active 141 750189750 Problem Spondylosis without myelopathy or radiculopathy, thoracic region M47.814 Active 125803968 Problem Intervertebral disc disorders with radiculopathy , lumbosacral region M51.17 Active 2503196 Problem Protruded lumbar disc M51.26 Active 449042168 Problem Arthritis of knee, left M17.12 Active 15006543 52971123 Problem Other obesity due to excess calories E66.09 Act zeferino 113950151 Problem Vitamin D insufficiency E55.9 Active 61972556 4 Problem Other specified postprocedural states Z98.890 Ac tive 042398560 Problem Anxiety F41.9 Active 88433235 Problem Osteoarthritis of spine with radiculopathy, cervical regio n M47.22 Active 720674110 Problem Fibromyalgia M79.7 Active 596017913 Problem Iron deficiency anemia, unspecified iron deficiency an emia type D50.9 Active 16364587 Problem Cervical disc displacement M50.20 Active 27581 4002 Problem Blood loss anemia D50.0 Active 694118657 Problem Restless leg syndrome G25.81 Active 71348681 Problem Right carpal tunnel syndrome G56.01 Active 293 392071098973 Problem Cervical disc disorder with radiculopathy, cervi cothoracic region M50.13 Active 576728706 Problem Other chronic pain G89.29 Active 69758488 Problem VERONA (generalized anxiety disorder) F41.1 Activ e 61835161 Problem Late period N92.6 Active 31674204 Problem Anxiety about health F41.8 Active 057930140 Problem Other intervertebral disc displacement, lumbosacral region M51.27 Active 47404785 Problem Paresthesias R20.2 Active 90387237 Problem Vaginal bleeding N93.9 Active 459225846 Problem Body mass index (BMI) of 37.0-37.9 in adult Z68.37 Active 152095837 Problem Body mass index (BMI) 45.0-49.9, adult Z68.42 A ctive 374275147 Problem Morbid (severe) obesity due to excess calories E66 .01 Active 920581517 Problem Moderate episode of recurrent major depressive disorder F33.1 Active 519275518 Problem Primary osteoarthritis of right knee M17.11 Act zeferino [id number] ALLERGIES Allergen (clinical drug ingredient) Drug/Non Drug Allergy do cumented on EMR Reaction Allergy Type Onset Date Status pregabalin Lyrica(NDC Code:[address]-27) facial swelling w ithout angioedema Drug Allergy Active omeprazole Omeprazole(NDC Code:[address]-79) angioedema Drug Allergy Active Adhesive Bandages Rash Drug Allergy Activ e clindamycin Clindamycin HCl(NDC Code:[address]-98) Vomit, b urns in "pouch" Drug Allergy Active ibuprofen Ibuprofen(NDC Code:[address]-75) gastric bypass/ulcer s Drug Allergy Active ENCOUNTERS from 1980 to 2020-07-10 [facility] [address] [place] [address] Jul, Lloyd Vaca IMMUNIZATIONS Vaccine Route Administration Date [...] Education Language: Question Answer Notes Languages spoken: Citizen Of [place] Latter-Day: Question Answer Notes Latter-Day 33 None Sexual Hx: Question Answer Notes [...] Orally Twice a day Active Saline Nasal [place] 0.65 % 2 sprays in each nostril [...] Information RESULTS No Results REASON FOR VISIT PT referral MEDICAL (GENERAL) HISTORY Type Description Date Medical [...] History Anterior cervical discectomy with fusion - [facility] 03/30/2017 Surgical History left knee arthroscopy 05/2018 [...] Details Provider Name:Lloyd Vaca, 2020-08-13 11:30:00 AM, [address] [place], [address], Insurance Providers Payer Name Payer Address Payer Phone Insured Name Patient Relati onship to Insured Coverage Start Date Coverage End Date MEDICARE Part A and B [address] [facility] [phone] SILAS GUZMÁN self MEDICAID [employer] [address] [facility] [id number] SILAS GUZMÁN self
--- OUTSIDE RECORDS SUMMARY | 2020-08-01 12:07 | CCD | Continuity of Care Document ---
Author Author Anjelica EKE M.D. Organization Unknown Address [address] [place] [address], [address] [place] [address] Phone [phone] Care Team Providers Care Inspector Type Name Role Phone VacaLloyd D.O. 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 Nhan Alvarez DO Onset: 10/05/2016 Procreative counseling and advice using natural family planning Nhan Alvarez DO Onset: 10/05/2016 Generalized abdominal pain Demario Aguilar MD Onset: 2016 Diarrhea Demario Aguilar MD Onset: 10/05/2016 Digestive symptom Demario Aguilar MD Onset: 10/05/2016 Congenital anomaly of intestinal tract Demario Aguilar MD O nset: 10/05/2016 Epigastric pain Demario Aguilar MD Onset: 10/05/2016 Intestinal bypass and anastomosis status Demario Aguilar MD Onset: 10/05/2016 Encounter for follow-up examination afte r completed treatment for conditions other than malignant neoplasm Demario Aguilar MD Onset: 10/05/2016 Abdominal pain Demario Aguilar MD Onset: 10/05/2016 Irritable bowel syndrome with diarrhea Demario Aguilar MD O nset: 10/05/2016 Bariatric surgery status Demario Aguilar MD Onset: 10/06/19 17 Hemorrhage of rectum and anus Demario Aguilar MD Onset: 09/2016 Gastrointestinal tract finding Demario Aguilar MD Onset: Social History Type Date Description Comments Sex Unknown Smokeless Tobacco Never Used Smokeless Tobacco ETOH Use 1 A Day Recreational Drug Use Denies Drug Use Tobacco Use Start: Unknown End: Unknown Patient is a former smoker quit 07/06 ppd smoked for 15 yrs Smoking Status Reviewed: 04/18/19 Patient is a former smoker qu it 07/06 ppd smoked for 15 yrs Allergies, Adverse Reactions, Alerts Active Allergies Reaction Severity Comments Date Omeprazole Angio edema face 11/19/2015 Clindamycin Nausea 05/11/2016 NSAIDs 05/11/2016 Erythromycin Nausea 10/05/2016 Prilosec 03/01/2019 Lyrica 03/01/2019 Medications Active Medications SIG Qnty Indications Ordering Provide r Date Fluticasone Propionate 50mcg/Act Suspension 2 sprays to each nostril daily 48gm H69.93 Harvey martin MD 11/23/2018 Tizanidine HCL 4mg Tablets 1tab po tid Unknown Acetaminophen 500mg Tablets 2tabs (1000mg) po qd Unknown Vitamin B12 500mcg 1tab po qd Unknown Vitamin D 5000U 1tab po qd Unknown [address] Lim 1c ap po qd Unknown Ropinirole HCL 1mg Tablets 1tab po bid Unknown Famotidine 40mg Tablets 1tab po q2d Unknown Hydroxyzine HCL 50mg Tablets 1tab po q6h prn Unknown Tramadol HCL 50mg Tablets 1tab po q6h prn Unknown Magnesium Oxide 400(240Mg) mg Tabl ets 1tab po qd Unknown Misoprostol 200mcg Tablets (Cytotec) 1tab po qid Unknown Multiple Vitamins W/Minerals Tablet (Daily Mul Vit) 1tab po bid Unknown Ondansetron 4mg Tablets Dispers place 1tab (4mg) on the tongue and allow to dissolve q8h prn for nausea Unknown Sucralfate 1gm Tablets 1tab p o qid Unknown Trazodone HCL 100mg Tablets 1tab po qhs Unknown Immunizations Description No Information Available Vital Signs Date Vital Result Comment 06/26/2020 8:56am BP Systolic 128 mmHg BP Diastolic 76 mmHg Height 60 inches 5'0" Weight 252.00 lb BMI (Body Mass Index) 49.2 kg/m2 Reeder Body Weight 100 lb Weight 114.307 kg BSA (Body Surface Area) 2.06 m2 01/08/2020 2:22pm Height 60 inches 5'0" Weight 243.00 lb BMI (Body Mass Index) 47.5 kg/m2 Reeder Body Weight 100 lb Weight 110.225 kg BSA (Body Surface Area) 2.03 m2 Results Description No Information Available Procedures Description No Information Available Medical Devices Description No Information Available Encounters Type Date Location Provider Dx Diagnosis Office Visit 01/08/2020 2:15p [facility] Harvey Astudillo MD H69.93 Unspecified Eustachian tube disorder, bilateral J30.9 Allergic rhinitis, unspecifi ed Assessments Date Code Description Provider 01/08/2020 H69.93 Unspecified Eustachian tube diso rder, bilateral Harvey Astudillo MD 01/08/2020 J30.9 Allergic rhinitis, unspecified T paul Astudillo MD Plan of Treatment Future Appointment(s):* 07/18/2020 2:30 pm - Harvey Astudillo MD at [facility] 06/26/2020 - Zeb Kee M.D.* * Recommendations:* -- Educated patient about the prior results in detail, all possible differential diagnoses and all questions answered. -- To continue taking Pepcid twice daily -- to be taken terrazzo grinder on empty stomach and at bedtime. -- Will add Sucralfate as well. -- Will schedule for EGD with lópez PH testing ( needs to hold acid suppressants for 3 days) and Colonoscopy. The procedures, indications, risks (bleeding, perforation, infection, hypotension, respiratory depression, allergy, need for endotracheal intubation, surgery, or even ), benefits, limitations (e.g., missing a lesion), and all other alternatives (including no intervention) were explained to the patient who understood and agreed for the procedures. -- Return to clinic 2 weeks after the above procedures. -- Follow up with PMD for routine medical care and other age appropriate health maintenance. EGD continue the same acid meds -- allergic to omeprazole us abdomen obtain recent labs cholestyramine ++ mirala Functional Status Functional Condition Comment Date Status Independent with all ADL's Activ e Independent with all IADL's Acti ve Mental Status Mental Condition Comment Date Status None Active Can understand information Activ e Referrals Description No Information Available
--- OUTSIDE RECORDS SUMMARY | 2020-08-01 12:07 | CCD ---
Author Author [facility] Organization [facility] Address Unknown Phone Unavailable Care Team Providers Care Detention Worker Name Role Phone Yobani Segura NP Unavailable Unavailable Yobani Segura GRAIN COMMODITY MANAGER Unavailable Unavailable Yobani Segura GRAIN COMMODITY MANAGER Unavailable Unavailable Yobani Segura GRAIN COMMODITY MANAGER Unavailable Unavailable Yobani Segura GRAIN COMMODITY MANAGER Unavailable Unavailable Yobani Segura GRAIN COMMODITY MANAGER Unavailable Unavailable Yobani Segura GRAIN COMMODITY MANAGER Unavailable Unavailable Yobani Segura GRAIN COMMODITY MANAGER Unavailable Unavailable Yobani Segura GRAIN COMMODITY MANAGER Unavailable Unavailable Yobani Segura GRAIN COMMODITY MANAGER Unavailable Unavailable Yobani Segura GRAIN COMMODITY MANAGER Unavailable Unavailable DietsYobani montoya GRAIN COMMODITY MANAGER Unavailable Unavailable CHROSTOWSKI, KEISHA MD Unavailable Unavailable CHROSTOWSKI KEISHA MD Unavailable Unavailable CHROSTOWSKI KEISHA MD Unavailable Unavailable CHROSTOWSKIJONKEISHA MD Unavailable Unavailable CHROSTOWSKIJONKEISHA MD Unavailable Unavailable CHROSTOWSKIJONKEISHA MD Unavailable Unavailable CHROSTOWSKI KEISHA MD Unavailable Unavailable CHROSTOWSKI KEISHA MD Unavailable Unavailable CHROSTOWSKI KEISHA MD Unavailable Unavailable CHROSTOWSKI KEISHA MD Unavailable Unavailable CHROSTOWSKI KEISHA MD Unavailable Unavailable CHROSTOWSKI KEISHA MD Unavailable Unavailable CHROSTOWSKI KEISHA MD Unavailable Unavailable CHROSTOWSKI KEISHA MD Unavailable Unavailable CHROSTOWSKI, KEISHA MD Unavailable Unavailable CHROSTOWSKI KEISHA MD Unavailable Unavailable CHROSTOWSKI KEISHA MD Unavailable Unavailable CHROSTOWSKIJONKEISHA MD Unavailable Unavailable CHROSTOWSKIJONKEISHA MD Unavailable Unavailable CHROSTOWSKIJONKEISHA MD Unavailable Unavailable CHROSTOWSKI KEISHA MD Unavailable Unavailable CHROSTOWSKIJONKEISHA MD Unavailable Unavailable CHROSTOWSKIJONKEISHA MD Unavailable Unavailable CHROSTOWSKIJONKEISHA MD Unavailable Unavailable CHROSTOWSKI KEISHA MD Unavailable Unavailable CHROSTOWSKIJONKEISHA MD Unavailable Unavailable CHROSTOWSKI KEISHA MD Unavailable Unavailable CHROSTOWSKIJONKEISHA MD Unavailable Unavailable CHROSTOWSKIJONKEISHA MD Unavailable Unavailable CHROSTOWSKIJONKEISHA MD Unavailable Unavailable CHROSTOWSKIJONKEISHA MD Unavailable Unavailable CHROSTOWSKIJONKEISHA MD Unavailable Unavailable CHROSTOWSKI KEISHA MD Unavailable Unavailable CHROSTOWSKIJONKEISHA MD Unavailable Unavailable CHROSTOWSKIJONKEISHA MD Unavailable Unavailable CHROSTOWSKIJONKEISHA MD Unavailable Unavailable CHROSTOWSKIJONKEISHA MD Unavailable Unavailable CHROSTOWSKI KEISHA MD Unavailable Unavailable CHROSTOWSKI KEISHA MD Unavailable Unavailable CHROSTOWSKI KEISHA MD Unavailable Unavailable Trickey, J Gena PA Unavailable Unavailable Trickey, J Gena PA Unavailable Unavailable Trickey, J Gena PA Unavailable Unavailable Trickey, J Gena PA Unavailable Unavailable Trickey, J Gena PA Unavailable Unavailable Trickey, J Gena PA Unavailable Unavailable Trickey, J Gena PA Unavailable Unavailable Trickey, J Gena PA Unavailable Unavailable Trickey, J Gena PA Unavailable Unavailable Trickey, J Gena PA Unavailable Unavailable Trickey, J Gena PA Unavailable Unavailable Trickey, J Gena PA Unavailable Unavailable Trickey, J Gena PA Unavailable Unavailable Trickey, J Gena PA Unavailable Unavailable Trickey, J Gena PA Unavailable Unavailable Trickey, J Gena PA Unavailable Unavailable Trickey, J Gena PA Unavailable Unavailable Trickey, J Gena PA Unavailable Unavailable Trickey, J Gena PA Unavailable Unavailable Trickey, J Gena PA Unavailable Unavailable Trickey, J Gena PA Unavailable Unavailable Trickey, J Gena PA Unavailable Unavailable Trickey, J Gena PA Unavailable Unavailable Trickey, J Gena PA Unavailable Unavailable Trickey, J Gena PA Unavailable Unavailable Trickey, J Gena PA Unavailable Unavailable Trickey, J Gena PA Unavailable Unavailable Trickey, J Gena PA Unavailable Unavailable Trickey, J Egna PA Unavailable Unavailable Trickey, J Gena PA Unavailable Unavailable Trickey, J Gena PA Unavailable Unavailable Trickey, J Gena PA Unavailable Unavailable Trickey, J Gena PA Unavailable Unavailable Trickey, J Gena PA Unavailable Unavailable Trickey, J Gena PA Unavailable Unavailable Trickey, J Gena PA Unavailable Unavailable Trickey, J Gena PA Unavailable Unavailable Trickey, J Gena PA Unavailable Unavailable Trickey, J Gena PA Unavailable Unavailable Trickey, J Gena PA Unavailable Unavailable Trickey, J Gena PA Unavailable Unavailable Trickey, J Gena PA Unavailable Unavailable Trickey, J Gena PA Unavailable Unavailable Trickey, J Gena PA Unavailable Unavailable Trickey, J Gena PA Unavailable Unavailable Trickey, J Gena PA Unavailable Unavailable Trickey, J Gena PA Unavailable Unavailable Trickey, J Gena PA Unavailable Unavailable Trickey, J Gena PA Unavailable Unavailable Trickey, J Gena PA Unavailable Unavailable Trickey, J Gena PA Unavailable Unavailable Trickey, J Gena PA Unavailable Unavailable Lawrence ASTUDILLO MD Unavailable Unavailable Lawrence ASTUDILLO MD Unavailable Unavailable Lawrence ASTUDILLO MD Unavailable Unavailable Lawrence ASTUDILLO MD Unavailable Unavailable Lawrence ASTUDILLO MD Unavailable Unavailable Lawrence ASTUDILLO MD Unavailable Unavailable Lawrence ASTUDILLO MD Unavailable Unavailable Lawrence ASTUDILLO MD Unavailable Unavailable Lawrence ASTUDILLO MD Unavailable Unavailable Lawrence ASTUDILLO MD Unavailable Unavailable Lawrence ASTUDILLO MD Unavailable Unavailable Lawrence ASTUDILLO MD Unavailable Unavailable Lawrence ASTUDILLO MD Unavailable Unavailable Lawrence ASTUDILLO MD Unavailable Unavailable Lawrence ASTUDILLO MD Unavailable Unavailable Lawrence ASTUDILLO MD Unavailable Unavailable Lawrence ASTUDILLO MD Unavailable Unavailable Lawrence ASTUDILLO MD Unavailable Unavailable Lawrence ASTUDILLO MD Unavailable Unavailable Lawrence ASTUDILLO MD Unavailable Unavailable Lawrence ASTUDILLO MD Unavailable Unavailable Lawrence ASTUDILLO MD Unavailable Unavailable Lawrence ASTUDILLO MD Unavailable Unavailable Lawrence ASTUDILLO MD Unavailable Unavailable Lawrence ASTUDILLO MD Unavailable Unavailable Lawrence ASTUDILLO MD Unavailable Unavailable Lawrence ASTUDILLO MD Unavailable Unavailable Lawrence ASTUDILLO MD Unavailable Unavailable Lawrence ASTUDILLO MD Unavailable Unavailable Lawrence ASTUDILLO MD Unavailable Unavailable Lawrence ASTUDILLO MD Unavailable Unavailable Lawrence ASTUDILLO MD Unavailable Unavailable Lawrence ASTUDILLO MD Unavailable Unavailable Lawrence ASTUDILLO MD Unavailable Unavailable Lawrence ASTUDILLO MD Unavailable Unavailable AliPa MD Unavailable Unavailable AliPa MD Unavailable Unavailable Pa Winters MD Unavailable Unavailable AliPa MD Unavailable Unavailable AliPa MD Unavailable Unavailable AliPa MD Unavailable Unavailable AliPa MD Unavailable Unavailable AliPa MD Unavailable Unavailable AliPa MD Unavailable Unavailable AliPa MD Unavailable Unavailable AliPa MD Unavailable Unavailable AliPa MD Unavailable Unavailable AliPa MD Unavailable Unavailable Pa Winters MD Unavailable Unavailable AliPa MD Unavailable Unavailable AliPa MD Unavailable Unavailable AliPa MD Unavailable Unavailable AliPa MD Unavailable Unavailable AliPa MD Unavailable Unavailable Pa Winters MD Unavailable Unavailable Pa Winters MD Unavailable Unavailable Pa Winters MD Unavailable Unavailable Pa Winters MD Unavailable Unavailable Pa Winters MD Unavailable Unavailable AliPa MD Unavailable Unavailable AliPa MD Unavailable Unavailable AliPa MD Unavailable Unavailable AliPa MD Unavailable Unavailable AliPa MD Unavailable Unavailable AliPa MD Unavailable Unavailable Pa Winters MD Unavailable Unavailable Pa Winters MD Unavailable Unavailable Pa Winters MD Unavailable Unavailable Pa Winters MD Unavailable Unavailable Pa Winters MD Unavailable Unavailable Pa Winters MD Unavailable Unavailable Pa Winters MD Unavailable Unavailable Pa Winters MD Unavailable Unavailable Pa Winters MD Unavailable Unavailable Pa Winters MD Unavailable Unavailable Pa Winters MD Unavailable Unavailable Pa Winters MD Unavailable Unavailable Pa Winters MD Unavailable Unavailable Pa Winters MD Unavailable Unavailable AliPa MD Unavailable Unavailable Pa Winters MD Unavailable Unavailable Pa Winters MD Unavailable Unavailable Pa Winters MD Unavailable Unavailable AliPa MD Unavailable Unavailable Hadian, Thor Unavailable Unavailable Hadian, Thor Unavailable Unavailable Hadian, Thor Unavailable Unavailable Hadian, Thor Unavailable Unavailable Hadian, Thor Unavailable Unavailable Hadian, Thor Unavailable Unavailable Hadian, Thor Unavailable Unavailable Hadian, Thor Unavailable Unavailable Hadian, Thor Unavailable Unavailable Hadian, Thor Unavailable Unavailable Hadian, Thor Unavailable Unavailable Hadian, Thor Unavailable Unavailable Hadian, Thor Unavailable Unavailable Hadian, Thor Unavailable Unavailable Hadian, Thor Unavailable Unavailable Hadian, Thor Unavailable Unavailable Hadian, Thor Unavailable Unavailable Hadian, Thor Unavailable Unavailable Hadian, Thor Unavailable Unavailable Hadian, Thor Unavailable Unavailable Hadian, Thor Unavailable Unavailable Hadian, Thor Unavailable Unavailable Hadian, Thor Unavailable Unavailable Hadian, Thor Unavailable Unavailable Hadian, Thor Unavailable Unavailable Hadian, Thor Unavailable Unavailable Hadian, Thor Unavailable Unavailable Hadian, Thor Unavailable Unavailable Hadian, Thor Unavailable Unavailable Hadian, Thor Unavailable Unavailable Hadian, Thor Unavailable Unavailable Hadian, Thor Unavailable Unavailable Hadian, Thor Unavailable Unavailable ROSAS BAUMAN MD Unavailable Unavailable ROSAS BAUMAN MD Unavailable Unavailable ROSAS BAUMAN MD Unavailable Unavailable ROSAS BAUMAN MD Unavailable Unavailable ROSAS BAUMAN MD Unavailable Unavailable ROSAS BAUMAN MD Unavailable Unavailable ROSAS BAUMAN MD Unavailable Unavailable ROSAS BAUMAN MD Unavailable Unavailable ROSAS BAUMAN MD Unavailable Unavailable ROSAS BAUMAN MD Unavailable Unavailable ROSAS BAUMAN MD Unavailable Unavailable ROSAS BAUMAN MD Unavailable Unavailable ROSAS BAUMAN MD Unavailable Unavailable ROSAS BAUMAN MD Unavailable Unavailable ROSAS BAUMAN MD Unavailable Unavailable ROSAS BAUMAN MD Unavailable Unavailable ROSAS BAUMAN MD Unavailable Unavailable ROSAS BAUMAN MD Unavailable Unavailable ROSAS BAUMAN MD Unavailable Unavailable ROSAS BAUMAN MD Unavailable Unavailable ROSAS BAUMAN MD Unavailable Unavailable ROSAS BAUMAN MD Unavailable Unavailable ROSAS BAUMAN MD Unavailable Unavailable ROSAS BAUMAN MD Unavailable Unavailable ROSAS BAUMAN MD Unavailable Unavailable ROSAS BAUMAN MD Unavailable Unavailable ROSAS BAUMAN MD Unavailable Unavailable ROSAS BAUMAN MD Unavailable Unavailable ROSAS BAUMAN MD Unavailable Unavailable ROSAS BAUMAN MD Unavailable Unavailable ROSAS BAUMAN MD Unavailable Unavailable ROSAS BAUMAN MD Unavailable Unavailable ROSAS BAUMAN MD Unavailable Unavailable Re-disclosure Warning The records that you are about to access may contain information from federally-assisted alcohol or drug abuse programs. If such information is present, then the following federally mandated warning applies: This information has been disclosed to you from records protected by federal confidentiality rules (42 CFR part 2). The federal rules prohibit you from making any further disclosure of this information unless further disclosure is expressly permitted by the written consent of the person to whom it pertains or as otherwise permitted by 42 CFR part 2. A general authorization for the release of medical or other information is NOT sufficient for this purpose. The Federal rules restrict any use of the information to criminally investigate or prosecute any alcohol or drug abuse patient.The records that you are about to access may contain highly sensitive health information, the redisclosure of which is protected by Article 27-F of the [facility] Public Health law. If you continue you may have access to information: Regarding HIV / AIDS; Provided by facilities licensed or operated by the [facility] Office of Mental Health; or Provided by the [facility] Office for People With Developmental Disabilities. If such information is present, then the following [facility] mandated warning applies: This information has been disclosed to you from confidential records which are protected by state law. State law prohibits you from making any further disclosure of this information without the specific written consent of the person to whom it pertains, or as otherwise permitted by law. Any unauthorized further disclosure in violation of state law may result in a fine or residential sentence or both. A general authorization for the release of medical or other information is NOT sufficient authorization for further disc losure. Allergies and Adverse Reactions Type Description Substance Reaction Status Data Source(s ) Drug allergy Ibuprofen Ibuprofen gastric bypass/ulcers Active eCW1 ([facility]) Drug allergy Omeprazole Omeprazole angioedema Active eCW1 ([facility]) Drug allergy Lyrica pregabalin facial swelling without angioedema Active eCW1 ([facility]) Drug allergy Clindamycin HCl Clindamycin Vomit, anderson in "pouch" Act zeferino eCW1 ([facility]) Adhesive Bandages Adhesive Bandages Adhesive Bandages Rash Acti ve eCW1 ([facility]) Adhesive Bandages Adhesive Bandages Adhesive Bandages Rash Acti ve eCW1 ([facility]) Family History Family Member Name Family Member Gender Family Member Status Date o f Status Description Data Source(s) Unknown Unknown Problem MEDENT ([facility], ) Encounters Encounter Providers Location Date Indications Data Source(s ) Outpatient Attender: Thor Tim ED-LABPNP 01:36:00 PM EST - 07/27/2020 01:37:00 PM EST [id number] [facility] [id number] Patient discharged. Unknown [address] [address] 07/18/2020 12:00:00 AM EST eCW1 ([facility]) Unknown [address] [address] 07/09/2020 12:00:00 AM EST eCW1 ([facility]) Unknown [address] [address] 06/26/2020 12:00:00 AM EST eCW1 ([facility]) Unknown [address] [address] 05/16/2020 12:00:00 AM EST eCW1 ([facility]) Outpatient [address] [address] 05/09/2020 12:00:00 AM EST eCW1 ([facility]) Outpatient Attender: Gena Razo [facility] 05/01/2020 01:00:00 PM EDT MEDENT ([facility] janelle ) Unknown [address] [address] 05/01/2020 12:00:00 AM EDT eCW1 ([facility]) Unknown [address] [address] 04/04/2020 12:00:00 AM EDT eCW1 ([facility]) Unknown [address] [address] 01/25/2020 12:00:00 AM EDT eCW1 ([facility] [place]patient [address] [facility] [address] 01/15/2020 12:00:00 AM EDT eCW1 [facility] Outpatient Attender: ORTIZ Astudillo/Sudhakar/Wisam/Kristen portillo 01/08/2020 02:15:00 PM EDT MEDENT ([facility] [place] [address] [facility] [place] [address] 11/09/2019 12:00:00 AM EDT eCW1 [facility] [place]ay [address] [address] 11/01/2019 12:00:00 AM EDT eCW1 [facility] Outpatient Attender: Pa Winters MD Main office [facility] 10/12/2019 11:00:00 AM EDT MEDENT ([facility]) [facility] [place] [address] [facility] [place] [address] 10/12/2019 12:00:00 AM EDT eCW1 [facility] [place] [address] [facility] [place] [address] 10/05/2019 12:00:00 AM EDT eCW1 ([facility] [place]de [address] [facility] [place] [address] 10/05/2019 12:00:00 AM EDT eCW1 ([facility] [place] [address] [facility] [place] [address] 09/27/2019 12:00:00 AM EDT eCW1 ([facility] Outpatient Attender: ROSAS BAUMAN MD Physical Therapy 12:30:00 PM EST MEDENT ([facility]) Outpatient Attender: KEISHA WILL MD Main Office 09/05/2019 01:00:00 PM EST MEDENT ([facility] [address] [facility] [place] [address] 08/31/2019 12:00:00 AM EST eCW1 ([facility]) [facility] [address] [facility] [place] [address] 07/19/2019 12:00:00 AM EST eCW1 ([facility]) [facility] [address] [facility] [place] [address] 07/11/2019 12:00:00 AM EST eCW1 ([facility]) Outpatient Referrer: Milena Segura NP 07/06/2019 08:56:00 PM EST [facility] [address] [facility] [place] [address] 06/16/2019 12:00:00 AM EST eCW1 ([facility]) [facility] [address] [facility] [place] [address] 06/15/2019 12:00:00 AM EST eCW1 ([facility]) Immunizations Vaccine Date Status Description Data Source(s) Vitamin B-12 1000mcg/1mL (Cyanocobalamin) 07/09/2020 12:02:00 PM EST completed eCW1 ([facility]) Vitamin B-12 1000mcg/1mL (Cyanocobalamin) 07/09/2020 12:02:00 PM EST completed eCW1 ([facility]) Vitamin B-12 1000mcg/1mL (Cyanocobalamin) 07/09/2020 12:02:00 PM EST completed eCW1 ([facility]) influenza, recombinant, quadrIvalent,injectable, prese rvative free 05/09/2020 11:22:00 AM EST [facility], recombinant, quadrIvalent,injectable, prese rvative free 05/09/2020 11:22:00 AM EST completed [facility] influenza, recombinant, quadrIvalent,injectable, prese rvative free 05/09/2020 11:22:00 AM EST completed [facility] influenza, recombinant, quadrIvalent,injectable, prese rvative free 05/09/2020 11:22:00 AM EST completed [facility] influenza, recombinant, quadrIvalent,injectable, prese rvative free 05/09/2020 11:22:00 AM EST completed [facility] Medications Medication Brand Name Start Date Product Form Dose Route Admi nistrative Instructions Pharmacy Instructions Status Indications Reaction Description Data Source(s) Cyanocobalamin 1000 MCG/ML UNK 05/22/2020 12:00:00 AM EST 1. 0 {ml} suspended Cyanocobalamin 1000 MCG/ML eCW1 ([facility]) ferrous sulfate 325 MG Oral Tablet Ferrous Sulfate 325 (65 Fe) MG Ferrous Sulfate 325 (65 Fe) MG 05/22/2020 12:00:00 AM EST 1.0 {tablet} suspended Ferrous Sulfate 325 (65 Fe) MG e CW1 ([facility]) ferrous sulfate 325 MG Oral Tablet Ferrous Sulfate 325 (65 Fe) MG Ferrous Sulfate 325 (65 Fe) MG 05/22/2020 12:00:00 AM EST 1.0 {tablet} suspended Ferrous Sulfate 325 (65 Fe) MG e CW1 ([facility]) ferrous sulfate 325 MG Oral Tablet Ferrous Sulfate 325 (65 Fe) MG Ferrous Sulfate 325 (65 Fe) MG 05/22/2020 12:00:00 AM EST 1.0 {tablet} active Ferrous Sulfate 325 (65 Fe) MG eCW1 ([facility]) Cyanocobalamin 1000 MCG/ML UNK 05/22/2020 12:00:00 AM EST 1. 0 {ml} active Cyanocobalamin 1000 MCG/ML eCW1 ([facility]) Cyanocobalamin 1000 MCG/ML UNK 05/22/2020 12:00:00 AM EST 1. 0 {ml} suspended Cyanocobalamin 1000 MCG/ML eCW1 ([facility]) ferrous sulfate 325 MG Oral Tablet Ferrous Sulfate 325 (65 Fe) MG Ferrous Sulfate 325 (65 Fe) MG 05/22/2020 12:00:00 AM EST 1.0 {tablet} suspended Ferrous Sulfate 325 (65 Fe) MG e CW1 ([facility]) Cyanocobalamin 1000 MCG/ML UNK 05/22/2020 12:00:00 AM EST 1. 0 {ml} active Cyanocobalamin 1000 MCG/ML eCW1 ([facility]) Cyanocobalamin 1000 MCG/ML UNK 05/22/2020 12:00:00 AM EST 1. 0 {ml} suspended Cyanocobalamin 1000 MCG/ML eCW1 ([facility]) ferrous sulfate 325 MG Oral Tablet Ferrous Sulfate 325 (65 Fe) MG Ferrous Sulfate 325 (65 Fe) MG 05/22/2020 12:00:00 AM EST 1.0 {tablet} active Ferrous Sulfate 325 (65 Fe) MG eCW1 ([facility]) Hydroxyzine Hydrochloride 50 MG Oral Tablet HydrOXYzin e HCl 50 MG HydrOXYzine HCl 50 MG 01/15/2020 12:00:00 AM EDT 1.0 {tablet_as_needed} active HydrOXYzine HCl 50 MG eCW1 ([facility]) Hydroxyzine Hydrochloride 50 MG Oral Tablet HydrOXYzin e HCl 50 MG HydrOXYzine HCl 50 MG 01/15/2020 12:00:00 AM EDT 1.0 {tablet_as_needed} active HydrOXYzine HCl 50 MG eCW1 ([facility]) Hydroxyzine Hydrochloride 50 MG Oral Tablet HydrOXYzin e HCl 50 MG HydrOXYzine HCl 50 MG 01/15/2020 12:00:00 AM EDT 1.0 {tablet_as_needed} active HydrOXYzine HCl 50 MG eCW1 ([facility]) Hydroxyzine Hydrochloride 50 MG Oral Tablet HydrOXYzin e HCl 50 MG HydrOXYzine HCl 50 MG 01/15/2020 12:00:00 AM EDT 1.0 {tablet_as_needed} active HydrOXYzine HCl 50 MG eCW1 ([facility]) Hydroxyzine Hydrochloride 50 MG Oral Tablet HydrOXYzin e HCl 50 MG HydrOXYzine HCl 50 MG 01/15/2020 12:00:00 AM EDT 1.0 {tablet_as_needed} active HydrOXYzine HCl 50 MG eCW1 ([facility]) Hydroxyzine Hydrochloride 50 MG Oral Tablet HydrOXYzin e HCl 50 MG HydrOXYzine HCl 50 MG 01/15/2020 12:00:00 AM EDT 1.0 {tablet_as_needed} active HydrOXYzine HCl 50 MG eCW1 ([facility]) Hydroxyzine Hydrochloride 50 MG Oral Tablet HydrOXYzin e HCl 50 MG HydrOXYzine HCl 50 MG 01/15/2020 12:00:00 AM EDT 1.0 {tablet_as_needed} active HydrOXYzine HCl 50 MG eCW1 ([facility]) Hydroxyzine Hydrochloride 50 MG Oral Tablet HydrOXYzin e HCl 50 MG HydrOXYzine HCl 50 MG 01/15/2020 12:00:00 AM EDT 1.0 {tablet_as_needed} active HydrOXYzine HCl 50 MG eCW1 ([facility]) Hydroxyzine Hydrochloride 50 MG Oral Tablet HydrOXYzin e HCl 50 MG HydrOXYzine HCl 50 MG 01/15/2020 12:00:00 AM EDT 1.0 {tablet_as_needed} active HydrOXYzine HCl 50 MG eCW1 ([facility]) Hydroxyzine Hydrochloride 25 MG Oral Tablet HydrOXYzin e HCl 25 MG HydrOXYzine HCl 25 MG 11/09/2019 12:00:00 AM EDT 1.0 {tablet_as_needed} suspended HydrOXYzine HCl 25 MG eCW1 ([facility]) Hydroxyzine Hydrochloride 25 MG Oral Tablet HydrOXYzin e HCl 25 MG HydrOXYzine HCl 25 MG 11/09/2019 12:00:00 AM EDT active 1 tablet as needed eCW1 ([facility]) Hydroxyzine Hydrochloride 25 MG Oral Tablet HydrOXYzin e HCl 25 MG HydrOXYzine HCl 25 MG 11/09/2019 12:00:00 AM EDT 1.0 {tablet_as_needed} suspended HydrOXYzine HCl 25 MG eCW1 ([facility]) Hydroxyzine Hydrochloride 25 MG Oral Tablet HydrOXYzin e HCl 25 MG HydrOXYzine HCl 25 MG 11/09/2019 12:00:00 AM EDT 1.0 {tablet_as_needed} active HydrOXYzine HCl 25 MG eCW1 ([facility]) Hydroxyzine Hydrochloride 25 MG Oral Tablet HydrOXYzin e HCl 25 MG HydrOXYzine HCl 25 MG 11/09/2019 12:00:00 AM EDT 1.0 {tablet_as_needed} suspended HydrOXYzine HCl 25 MG eCW1 ([facility]) Hydroxyzine Hydrochloride 25 MG Oral Tablet HydrOXYzin e HCl 25 MG HydrOXYzine HCl 25 MG 11/09/2019 12:00:00 AM EDT 1.0 {tablet_as_needed} active HydrOXYzine HCl 25 MG eCW1 ([facility]) Hydroxyzine Hydrochloride 25 MG Oral Tablet HydrOXYzin e HCl 25 MG HydrOXYzine HCl 25 MG 11/09/2019 12:00:00 AM EDT 1.0 {tablet_as_needed} suspended HydrOXYzine HCl 25 MG eCW1 ([facility]) Hydroxyzine Hydrochloride 25 MG Oral Tablet HydrOXYzin e HCl 25 MG HydrOXYzine HCl 25 MG 11/09/2019 12:00:00 AM EDT 1.0 {tablet_as_needed} suspended HydrOXYzine HCl 25 MG eCW1 ([facility]) Hydroxyzine Hydrochloride 25 MG Oral Tablet HydrOXYzin e HCl 25 MG HydrOXYzine HCl 25 MG 11/09/2019 12:00:00 AM EDT 1.0 {tablet_as_needed} active HydrOXYzine HCl 25 MG eCW1 ([facility]) Hydroxyzine Hydrochloride 25 MG Oral Tablet HydrOXYzin e HCl 25 MG HydrOXYzine HCl 25 MG 11/09/2019 12:00:00 AM EDT 1.0 {tablet_as_needed} active HydrOXYzine HCl 25 MG eCW1 ([facility]) Flonase Sensimist Flonase Sensimist 09/05/2019 12:00:00 AM EST active MEDENT ([facility]) Insurance Providers Payer name Policy type / Coverage type Policy ID Covered alliance party ID Covered alliance party's relationship to cid Policy Cid Plan Information EMEDNY [id number] SP [id number] MEDICARE [id number] SP [id number] [id number] [facility] [id number] S [id number] COUNTS INCLUDE 234 BEDS AT THE [facility] COMMUNITY PLAN [facility] [id number] SP [id number] MEDICARE C [id number] S [id number] MEDICAID M [id number] S [id number] [facility] COMMUNITY PLAN [facility] [id number] SP [id number] COUNTS INCLUDE 234 BEDS AT THE [facility] COMMUNITY PLAN [facility] [id number] SP [id number] MEDICAID [id number] SP [id number] [facility]) O [id number] S [id number] [facility] Comm Plan Medicaid F [id number] SELF [id number] ANSI-Medicaid [id number] ANSI-Medicaid [id number] ANSI-Medicaid [id number] ANSI-Medicaid [id number] ANSI-Medicaid [id number] ANSI-Medicaid [id number] ANSI-Medicaid [id number] ANSI-Medicaid [id number] Medicaid [place] Medigap Part B [id number] Self [id number] [facility] Health Maintenance Organization (HMO) [id number] Self [id number] ANSI-Medicaid [id number] ANSI-Medicaid [id number] ANSI-Medicaid [id number] ANSI-Medicaid [id number] ANSI-Medicaid [id number] ANSI-Medicaid [id number] ANSI-Medicaid [id number] ANSI-Medicaid [id number] ANSI-Medicaid [id number] ANSI-Medicaid [id number] ANSI-Medicaid [id number] ANSI-Medicaid [id number] ANSI-Medicaid [id number] ANSI-Medicaid [id number] ANSI-Medicaid [id number] ANSI-Medicaid [id number] ANSI-Medicaid [id number] ANSI-Medicaid [id number] ANSI-Medicaid [id number] ANSI-Medicaid [id number] ANSI-Medicaid [id number] ANSI-Medicaid [id number] BS [facility] [id number] Self [id number] [facility] Plan Commercial [id number] Self [id number] ANSI-Medicaid [id number] ANSI-Medicaid [id number] ANSI-Medicaid [id number] ANSI-Medicaid [id number] ANSI-Medicaid [id number] ANSI-Medicaid [id number] Medicaid [place] Medigap Part B [id number] Self [id number] ANSI-Medicaid [id number] ANSI-Medicaid [id number] ANSI-Medicaid [id number] ANSI-Medicaid [id number] BS [employer] Medigap Part B [id number] Self [id number] [facility] Plan Commercial [id number] Self [id number] BS [employer] Medigap Part B [id number] Self [id number] [facility] Commercial [id number] Self [id number] ANSI-Medicaid [id number] ANSI-Medicaid [id number] ANSI-Medicaid [id number] ANSI-Medicaid [id number] ANSI-Medicaid [id number] ANSI-Medicaid [id number] ANSI-Medicaid [id number] ANSI-Medicaid [id number] ANSI-Medicaid [id number] ANSI-Medicaid [id number] ANSI-Medicaid [id number] ANSI-Medicaid [id number] [facility] Comm Plan Medicaid F [id number] SELF [id number] ANSI-Medicaid [id number] ANSI-Medicaid [id number] [facility] Comm Plan Medicaid F [id number] SELF [id number] [facility] Part B [id number] Self [id number] [facility] Commercial [id number] Self [id number] ANSI-Medicaid [id number] ANSI-Medicaid [id number] ANSI-Medicaid [id number] ANSI-Medicaid [id number] ANSI-Medicaid [id number] ANSI-Medicaid [id number] BS [employer] Medigap Part B [id number] Self [id number] [facility] Plan Commercial [id number] Self [id number] [facility] O [id number] S [id number] ANSI-Medicaid [id number] ANSI-Medicaid [id number] ANSI-Medicaid [id number] ANSI-Medicaid [id number] ANSI-Medicaid [id number] ANSI-Medicaid [id number] [employer] [facility]-Medicaid [id number] ANSI-Medicaid [id number] [facility] MEDICAID PI PI [facility] MEDICAID [id number] Kate [id number] MEDICAID [id number] Kate [id number] BS [employer] Medigap Part B [id number] Self [id number] [facility] Commercial [id number] Self [id number] EXCELLUS H [id number] Self [id number] BS [employer] Medigap Part B [id number] Self [id number] [facility] Plan Commercial [id number] Self [id number] [facility] Comm Plan Medicaid F [id number] SELF [id number] [facility] Comm Plan Medicaid F [id number] SELF [id number] EXCELLUS BCBS [id number] Kate VYA [facility] [id number] SP [id number] SELF PAY ONLY - SP1 UNAVAILABLE SP UNAVAILABLE Medicaid [place] [id number] Self [id number] EXCELL[employer] BCBS [id number] Kate VYA Medicaid [facility] S D [id number] SELF [id number] BCBS [place] PPO 302/307 [id number] SP [id number] Blue Cross Blue Shield P [id number] SELF [id number] EX[employer]LL[employer] BCBS B [id number] S VYS [id number] BCBS [place] PPO 302/307 [id number] SP [id number] BCBS [place] PPO 302/307 [id number] SP [id number] [employer] Health Maintenance Organization (HMO) [id number] Self [id number] [employer] Health Maintenance Organization (HMO) [id number] Self [id number] BCBS [place] PPO 302/307 [id number] SP [id number] BS [facility] [place] use #4 Health Maintenance Organization (HMO) Self EXCELLUS BCBS B [id number] S V BCBS OF [place] 306/806 [id number] SP [id number] EXCELLUS H [id number] Self [id number] BS [facility] [place] Health Maintenance Organization (O) Self [facility] HMO/PPO/POS [id number] [place] Commercial Self EXCELLUS H [id number] Self [id number] EXCELLUS BCBS [id number] Kate VYA [id number] SELF PAY 2 UNAVAILABLE 1 UNAVAILA BLE BC EXC PLANS 1 [id number] MVP 7 [id number] 400 [facility] PHY [id number] SP [id number] Problems, Conditions, and Diagnoses Code Display Name Description Problem Type Effective Dates Data Source(s) 96078686 Allergic rhinitis due to animals Allergic rhinit is due to animals Problem 09/05/2019 12:00:00 AM EST MEDENT ([facility] Note: 3+ positive reaction to cat dande r on intradermal test. [id number] Allergic rhinitis due to pollen Allergic rhiniti s due to pollen Problem 09/05/2019 12:00:00 AM EST MEDENT ([facility] Note: 4++ positive reaction to grass kevin jethro with 3+ positive reaction to various weed pollen on scratch test. 943964798 Allergic rhinitis due to house dust mite Allergic rhinitis due to house dust mite Problem 09/05/2019 12:00:00 AM EST MEDENT ([facility] Note: 4++ reaction to dust mites on scra tch test. 40477468 Idiopathic urticaria Idiopathic urticaria Problem 09/05/2019 12:00:00 AM EST MEDENT ([facility] R20.2 76576720 Paresthesias Problem 08/02/2019 12:00:00 AM EST eCW1 ([facility]) R20.2 48959976 Paresthesias Problem 08/02/2019 12:00:00 AM EST eCW1 ([facility]) F41.8 224981297 Anxiety about health Problem 06/15/2019 12:0 0:00 AM EST eCW1 ([facility]) F41.8 223569453 Anxiety about health Problem 06/15/2019 12:0 0:00 AM EST eCW1 ([facility]) Surgeries/Procedures Procedure Description Date Indications Data Source(s) Immunization: Flublok Quadrivalent (18 years & older) 0.5mL IM (Influenza) 05/09/2020 12:00:00 AM EST eCW1 ([facility]) PERCUTANEOUS TESTS W/ALLERGENIC EXTRACTS 09/05/2019 12 :00:00 AM EST MEDENT ([facility]) INTRACUTANEOUS TESTS W/ALLERGENIC EXTRACTS 09/05/2019 12:00:00 AM EST MEDENT ([facility]) Results ID Date Data Source [id number] 07/29/2020 04:17:00 PM EST [facility] Name Value Range Interpretation Code Description Data Angela rce(s) Supporting Document(s) Respiratory specimen severe acute respir atory syndrome coronavirus 2 (SARS-CoV-2) RNA Negative (qualifier value) [place] [facility] and reported by . ID Date Data Source [id number] 07/03/2020 01:30:00 PM EST [place] Name Value Range Interpretation Code Description Data Angela rce(s) Supporting Document(s) SARS coronavirus 2 RNA [facility] This lab was ordered by [facility] and reported by [facility]. ID Date Data Source VITAMIN A, RETINOL LEVEL 05/09/2020 12:00:00 AM EST eCW1 ([facility]) Name Value Range Interpretation Code Description Data Anegla rce(s) Supporting Document(s) 46.8 18.9-57.3 VITAMIN A, RETINOL LEVEL eCW1 ([facility]) ID Date Data Source VITAMIN B1 LEVEL WHOLE BLOOD 05/09/2020 12:00:00 AM EST eCW1 ([facility]) Name Value Range Interpretation Code Description Data Angela rce(s) Supporting Document(s) 137.8 66.5-200.0 VITAMIN B1 LEVEL WHOLE BL OOD eCW1 ([facility]) ID Date Data Source LIPID PANEL (CARDIAC RISK) 05/09/2020 12:00:00 AM EST eCW1 ( [facility]) Name Value Range Interpretation Code Description Data Angela rce(s) Supporting Document(s) Cholesterol [Moles/volume] in Serum or Plasma 186 <200 CHOLESTEROL LEVEL eCW1 ([facility]) Cholesterol in HDL [Moles/volume] in Serum or Plasma 69 >40 HDL CHOLESTEROL eCW1 ([facility]) Cholesterol in LDL [Mass/volume] in Serum or Plasma by calculation 97 <100 LDL CHOLESTEROL eCW1 ([facility]) Triglyceride [Mass/volume] in Serum or Plasma by calculation 99 <150 TRIGLYCERIDES LEVEL eCW1 ([facility]) 117 NON-HDL-C [facility] 2.695 <5 CHOLESTEROL RISK RATIO eCW1 ([facility]) ID Date Data Source VITAMIN D 25-HYDROXY 05/09/2020 12:00:00 AM EST eCW1 ([facility]) Name Value Range Interpretation Code Description Data Angela rce(s) Supporting Document(s) 20.9 30.0-100.0 TOTAL 25(OH) VITAMIN D eC W1 ([facility]) ID Date Data Source TOTAL IRON BINDING CAPACIT 05/09/2020 12:00:00 AM EST eCW1 ( [facility]) Name Value Range Interpretation Code Description Data Angela rce(s) Supporting Document(s) 556 250-450 TOTAL IRON BINDING CAPACI TY eCW1 ([facility]) 49 50-170 IRON (FE) eCW1 [facility] 8.8 13.2-45.0 PERCENT SATURATION eCW1 ([facility]) ID Date Data Source VITAMIN B12 LEVEL 05/09/2020 12:00:00 AM EST eCW1 ([facility]) Name Value Range Interpretation Code Description Data Angela rce(s) Supporting Document(s) 061 805-694 VITAMIN B12 LEVEL eCW1 ([facility]) ID Date Data Source [id number] 05/09/2020 12:00:00 AM EST eCW1 ([facility]) Name Value Range Interpretation Code Description Data Angela rce(s) Supporting Document(s) Hemoglobin A1c/Hemoglobin.total in Blood 5.3 HEMOGLOBIN A1c eCW1 ([facility]) ID Date Data Source Comprehensive Metabolic Profile (CMP) 05/09/2020 12:00:00 AM EST eCW1 ([facility]) Name Value Range Interpretation Code Description Data Angela rce(s) Supporting Document(s) 9 7-18 BLOOD UREA NITROGEN eCW1 ([facility]) 71 70-100 GLUCOSE, FASTING eCW1 ([facility]) > 60.0 >60 GLOMERULAR FILTRATION RATE eCW 1 ([facility]) 4.4 3.5-5.1 POTASSIUM SERUM eCW1 ([facility]) 139 136-145 SODIUM LEVEL eCW1 ([facility]) 0.65 0.55-1.30 CREATININE FOR GFR eCW1 ([facility]) 27 21-32 CARBON DIOXIDE LEVEL eCW1 ([facility]) 9.5 8.5-10.1 CALCIUM LEVEL eCW1 ([facility]) 106 98-107 CHLORIDE LEVEL eCW1 ([facility]) 78 45-117 ALKALINE PHOSPHATASE eCW1 ([facility]) 25 12-78 ALT/SGPT [facility]CW[facility] 0.3 0.2-1.0 BILIRUBIN,TOTAL eCW1 ([facility]) 19 7-37 AST/SGOT eCW1 [facility] 1.1 1.2-2.2 ALBUMIN/GLOBULIN RATIO eCW1 ([facility]) 7.1 6.4-8.2 TOTAL PROTEIN eCW1 ([facility]) 3.7 3.2-5.2 ALBUMIN eCW[facility] ID Date Data Source CBC with Differential 05/09/2020 12:00:00 AM EST eCW1 ([facility]) Name Value Range Interpretation Code Description Data Angela rce(s) Supporting Document(s) 7.4 4.0-10.0 WHITE BLOOD COUNT eCW1 ([facility]) 4.29 4.00-5.40 RED BLOOD COUNT eCW1 ([facility]) 93.9 80.0-96.0 MEAN CORPUSCULAR VOLUME e CW1 ([facility]) 40.3 36.0-47.0 HEMATOCRIT eCW1 ([facility]) 29.4 27.0-33.0 MEAN CORPUSCULAR HEMOGLOB IN eCW1 ([facility]) 12.6 12.0-15.5 HEMOGLOBIN eCW1 ([facility]) 13.4 11.5-14.5 RED CELL DISTRIBUTION WID TH eCW1 ([facility]) 59.9 36.0-66.0 NEUTROPHILS % eCW1 ([facility]) 31.3 32.0-36.5 MEAN CORPUSCULAR HGB CONC eCW1 ([facility]) 482 150-450 PLATELET COUNT, AUTOMATED eCW1 ([facility]) 0.9 0.0-1.0 BASO % eCW[facility] 3.5 0.0-3.0 EOS % eCW1 [facility] 26.5 24.0-44.0 LYMPH % eCW1 [facility] 8.8 0.0-5.0 MONO % eCW1 [facility] 0.7 0.0-0.8 MONO # eCW1 [facility] 2.0 1.5-5.0 LYMPH # eCW1 ([facility] 0.3 0.0-0.5 EOS # eCW1 [facility] 4.4 1.5-8.5 NEUTROPHILS # eCW1 ([facility]) 0.1 0.0-0.2 BASO # [facility]CW[facility] Procedure Social History Code Duration Value Status Description Data Source(s ) Smoking 07/09/2020 12:00:00 AM EST Never Smoker completed Never S moker eCW1 ([facility]) Smoking 07/09/2020 12:00:00 AM EST Never Smoker completed Never S moker eCW1 ([facility]) Smoking 07/09/2020 12:00:00 AM EST Never Smoker completed Never S moker eCW1 ([facility]) Smoking 05/09/2020 12:00:00 AM EST Never Smoker completed Never S moker eCW1 ([facility]) Smoking 05/09/2020 12:00:00 AM EST Never Smoker completed Never S moker eCW1 ([facility]) Smoking 01/15/2020 12:00:00 AM EDT Never Smoker completed Never S moker eCW1 ([facility]) Smoking 01/15/2020 12:00:00 AM EDT Never Smoker completed Never S moker eCW1 ([facility]) Smoking 01/15/2020 12:00:00 AM EDT Never Smoker completed Never S moker eCW1 ([facility]) Smoking 01/15/2020 12:00:00 AM EDT Never Smoker completed Never S moker eCW1 ([facility]) Vital Signs ID Date Data Source UNK Name Value Range Interpretation Code Description Data Source(s) Body surface area Derived from formula 2.06 m2 2.06 m2 [facility] ([facility]) Body weight 114.307 kg 114.307 kg [facility] ([facility]) [place] body weight 100 [lb_av] 100 [lb_av] [facility] ([facility]) Body mass index (BMI) [Ratio] 49.2 kg/m2 49.2 k g/m2 [facility] ([facility]) Body weight 252.00 [lb_av] 252.00 [lb_av] [facility] T ([facility]) Body height 60 [in_i] 60 [in_i] [facility] ([facility] ) 5'0" Diastolic blood pressure 76 mm[Hg] 76 mm[Hg] [facility] ([facility], ) Systolic blood pressure 128 mm[Hg] 128 mm[Hg] [facility] Diastolic blood pressure 93 mm[Hg] 93 mm[Hg] eCW1 ([facility]) Systolic blood pressure 118 mm[Hg] 118 mm[Hg] e CW1 ([facility]) Body temperature 98.2 [degF] 98.2 [degF] eCW1 ( [facility]) Respiratory rate 16 /min 16 /min eCW1 ([facility]) Heart rate 90 /min 90 /min eCW1 ([facility]) Body mass index (BMI) [Ratio] 49.41 kg/m2 49.41 kg/m2 W1 ([facility]) Body height 60 [in_i] 60 [in_i] eCW1 ([facility]) Body weight 253 [lb_av] 253 [lb_av] eCW1 ([facility]) Respiratory rate 20 /min 20 /[facility] Heart rate 72 /min 72 /min [facility] ([facility], ) Diastolic blood pressure 70 mm[Hg] 70 mm[Hg] [facility] ([facility], ) Systolic blood pressure 120 mm[Hg] 120 mm[Hg] [facility] Diastolic blood pressure 85 mm[Hg] 85 mm[Hg] eCW1 ([facility]) Systolic blood pressure 133 mm[Hg] 133 mm[Hg] e CW1 ([facility]) Body temperature 98.4 [degF] 98.4 [degF] eCW1 ( [facility]) Respiratory rate 16 /min 16 /min eCW1 ([facility]) Heart rate 78 /min 78 /min eCW1 ([facility]) Body mass index (BMI) [Ratio] 47.26 kg/m2 47.26 kg/m2 eCW1 ([facility]) Body height 60 [in_i] 60 [in_i] eCW1 ([facility]) Body weight 242 [lb_av] 242 [lb_av] eCW1 ([facility]) Body surface area Derived from formula 2.03 m2 2.03 m2 [facility] ([facility]) Body weight 110.225 kg 110.225 kg [facility] ([facility]) [place] body weight 100 [lb_av] 100 [lb_av] MED[facility] T ([facility]) Body mass index (BMI) [Ratio] 47.5 kg/m2 47.5 k g/m2 [facility] ([facility]) Body weight 243.00 [lb_av] 243.00 [lb_av] [facility] T ([facility]) Body height 60 [in_i] 60 [in_i] [facility] ([facility]) 5'0" Diastolic blood pressure 86 mm[Hg] 86 mm[Hg] eCW1 ([facility]) Systolic blood pressure 128 mm[Hg] 128 mm[Hg] e CW1 ([facility]) Body temperature 98.4 [degF] 98.4 [degF] eCW1 ( [facility]) Respiratory rate 16 /min 16 /min eCW1 ([facility]) Heart rate 73 /min 73 /min eCW1 ([facility]) Body mass index (BMI) [Ratio] 49.21 kg/m2 49.21 kg/m2 eCW1 ([facility]) Body height 60 [in_us] 60 [in_us] eCW1 ([facility]) Body weight Measured 252 [lb_av] 252 [lb_av] eC W1 ([facility]) Body mass index (BMI) [Ratio] 47.7 kg/m2 47.7 k g/m2 [facility] ([facility]) Diastolic blood pressure 82 mm[Hg] 82 mm[Hg] [facility] ([facility]) Systolic blood pressure 135 mm[Hg] 135 mm[Hg] M EDENT ([facility]) Respiratory rate 16 /min 16 /min [facility] ( [facility]) Heart rate 85 /min 85 /min [facility] ([facility] Body height 60 [in_i] 60 [in_i] [facility] ([facility] 5'0" Body weight 244.50 [lb_av] 244.50 [lb_av] [facility] ([facility] Diastolic blood pressure 72 mm[Hg] 72 mm[Hg] eCW1 ([facility]) Systolic blood pressure 134 mm[Hg] 134 mm[Hg] e CW1 ([facility]) Body temperature 97.6 [degF] 97.6 [degF] eCW1 ( [facility]) Respiratory rate 18 /min 18 /min eCW1 ([facility]) Heart rate 88 /min 88 /min eCW1 ([facility]) Body mass index (BMI) [Ratio] 46.67 kg/m2 46.67 kg/m2 eCW1 ([facility]) Body height 60 [in_us] 60 [in_us] eCW1 ([facility]) Body weight Measured 239 [lb_av] 239 [lb_av] eC W1 ([facility]) Patient Treatment Plan of Care Planned Activity Planned Date Details Description Data Source (s) Cyanocobalamin 1000 MCG/ML 05/22/2020 12:00:00 AM EST eCW1 ([facility]) ferrous sulfate 325 MG Oral Tablet 05/22/2020 12:00:00 AM EST eCW1 ([facility]) Cyanocobalamin 1000 MCG/ML 05/22/2020 12:00:00 AM EST eCW1 ([facility]) ferrous sulfate 325 MG Oral Tablet 05/22/2020 12:00:00 AM EST eCW1 ([facility]) Hydroxyzine Hydrochloride 50 MG Oral Tablet 01/15/2020 12:00:00 AM EDT eCW1 ([facility]) Hydroxyzine Hydrochloride 50 MG Oral Tablet 01/15/2020 12:00:00 AM EDT eCW1 ([facility]) Hydroxyzine Hydrochloride 50 MG Oral Tablet 01/15/2020 12:00:00 AM EDT eCW1 ([facility]) Hydroxyzine Hydrochloride 50 MG Oral Tablet 01/15/2020 12:00:00 AM EDT eCW1 ([facility]) Hydroxyzine Hydrochloride 25 MG Oral Tablet 11/09/2019 12:00:00 AM EDT eCW1 ([facility])
--- OUTSIDE RECORDS SUMMARY | 2020-08-01 12:07 | CCD ---
Author Author [facility] Organization [facility] Address Unknown Phone Unavailable Care Team Providers Care Underwriting Consultant Name Role Phone Lloyd Vaca Unavailable PROBLEMS Type Condition ICD9-CM Code [id number] Code Onset Dates Condition S tatus SNOMED Code Notes Problem Neuropathy of left lower extremity G57.92 Activ e 295428903 Problem Sacroiliac joint pain M53.3 Active 345987418 Problem Spondylosis without myelopathy or radiculopathy, cervical region M47.812 Active 324999330 Problem Cervicalgia M54.2 Active 44815153 Problem Myalgia M79.1 Active 29598523 Problem Altered mental status, unspecified altered mental stat us type R41.82 Active 307906542 Problem Sacroiliitis, not elsewhere classified M46.1 A ctive 254194882 Problem Obesity, morbid, BMI 40.0-49.9 E66.01 Active 2 30757134 Problem Spondylosis without myelopathy or radicu lopathy, cervicothoracic region M47.813 Active 941620470 Problem Excessive daytime sleepiness G47.19 Active 141 369100666 Problem Spondylosis without myelopathy or radiculopathy, thoracic region M47.814 Active 657032049 Problem Intervertebral disc disorders with radiculopathy , lumbosacral region M51.17 Active 8932352 Problem Protruded lumbar disc M51.26 Active 125574160 Problem Arthritis of knee, left M17.12 Active 35762328 51340082 Problem Other obesity due to excess calories E66.09 Act zeferino 722880833 Problem Vitamin D insufficiency E55.9 Active 65926723 4 Problem Other specified postprocedural states Z98.890 Ac tive 554757241 Problem Anxiety F41.9 Active 89360548 Problem Osteoarthritis of spine with radiculopathy, cervical regio n M47.22 Active 602815920 Problem Fibromyalgia M79.7 Active 181054864 Problem Iron deficiency anemia, unspecified iron deficiency an emia type D50.9 Active 58451932 Problem Cervical disc displacement M50.20 Active 00301 4002 Problem Blood loss anemia D50.0 Active 058664901 Problem Restless leg syndrome G25.81 Active 19341413 Problem Right carpal tunnel syndrome G56.01 Active 293 783200264082 Problem Cervical disc disorder with radiculopathy, cervi cothoracic region M50.13 Active 588724650 Problem Other chronic pain G89.29 Active 32997853 Problem VERONA (generalized anxiety disorder) F41.1 Activ e 14435110 Problem Late period N92.6 Active 24589899 Problem Anxiety about health F41.8 Active 689401180 Problem Other intervertebral disc displacement, lumbosacral region M51.27 Active 97907592 Problem Paresthesias R20.2 Active 42477405 Problem Vaginal bleeding N93.9 Active 716443455 Problem Body mass index (BMI) of 37.0-37.9 in adult Z68.37 Active 535549392 Problem Body mass index (BMI) 45.0-49.9, adult Z68.42 A ctive 065883349 Problem Morbid (severe) obesity due to excess calories E66 .01 Active 845216575 Problem Moderate episode of recurrent major depressive disorder F33.1 Active 566764657 Problem Primary osteoarthritis of right knee M17.11 Act zeferino [id number] ALLERGIES Allergen (clinical drug ingredient) Drug/Non Drug Allergy do cumented on EMR Reaction Allergy Type Onset Date Status pregabalin Lyrica(NDC Code:[address]-05) facial swelling w ithout angioedema Drug Allergy Active omeprazole Omeprazole(NDC Code:[address]-23) angioedema Drug Allergy Active Adhesive Bandages Rash Drug Allergy Activ e clindamycin Clindamycin HCl(NDC Code:[address]-77) Vomit, b urns in "pouch" Drug Allergy Active ibuprofen Ibuprofen(NDC Code:[address]-86) gastric bypass/ulcer s Drug Allergy Active ENCOUNTERS from 1980 to 2020-05-23 Encounter Location Date Provider [facility] [address] [place] [address] May, Lloyd Vaca Low vitamin B12 level E53.8 ; Low vitami n D level R79.89 ; Elevated platelet count R79.89 and Low iron E61.1 IMMUNIZATIONS Vaccine Route Administration Date Status Influenza (18 yrs & older) Flublok IM Intramuscular May 09, 2020 Administered Influenza (18 yrs & older) Flublok IM Intramuscular Apr 17, 2019 Administered Phenergran 25mg/1mL (Promethazine) IM Intramuscular Apr 02 7 Administered MMR 0.5mL SC May 18, 2013 Administered Influenza (6mo & up) Fluzone IM Intramuscular May 02, 2018 Ad ministered Influenza (6mo & up) Fluzone Unknown Apr 06, 2016 Adm inistered Influenza (6mo & up) Fluzone Unknown Jun [...] Education Language: Question Answer Notes Languages spoken: New Zealander Tenriism: Question Answer Notes Tenriism 33 None Sexual Hx: Question Answer Notes [...] Notes Start Da te End Date Status Fluticasone Propionate 50 MCG/ACT 2 sprays in each nostril Nasal ly Once a day Active Benzonatate 200 MG 1 capsule Orally Three times a day as needed for cough for 30 day(s) Dec, Not-Taking Vitamin D-3 5000 UNIT Orally Daily Active TraZODone HCl 100 MG 1 tablet at bedtime Orally Once a day Sep, Active Tylenol 500 mg 2 tablets Orally Twice a day Active Sudafed 12 Hour 120 MG 1 tablet as needed Orally Daily for 10 da y(s) Mar, Not-Taking Topiramate 100 MG 1 tab Orally bid Jun, Not-Taking Lidocaine 4 % 1 application to affected ar ea as needed Externally Three times a day Active Ropinirole HCl 1 MG 1 tablet Orally BID Active Glucometer Dx: R55. Check once daily for 30 day(s) November, Active Saline Nasal [place] 0.65 % 2 sprays in each nostril as needed Nasally every 2 hrs Active Cetirizine HCl 10 MG 1 tablet Orally Once a day for 30 day(s) Mar, Not-Taking Acetaminophen 500 MG 2 tablets as needed Orally every 6 hrs for 10 day(s) Apr, Not-Taking Ferrous Sulfate 325 (65 Fe) MG 1 tablet Orally Once a day for 90 days Not-Taking Blood Glucose Test - dx: r55. check once daily In Vitro Daily fo r 30 days November, Active Lancets - dx: r55. check once daily Daily for 30 days November, Active Triamcinolone Acetonide 0.025 % 1 application to affec cortney area of chest Externally Twice a day for 14 Days May, Not-Taking HydrOXYzine HCl 25 MG 1 tablet as needed Orally every 8 hrs for 14 days November, Not-Taking Bariatric Cane - Dispense offset quad cane. m 17.11 , e66.01. dispense one cane, use as directed for 30 Days May, Acti ve Carafate 1 GM 1 tablet on an empty stomach Orally Twice a day Not-Taking Vitamin B12 1000mcg 1 tablet Orally Once a day Active Tizanidine HCl 4 MG 1 tablet Orally Three times a day Active Multivitamin Adult - 2 tablets Orally Daily Active Magnesium Active Cyanocobalamin 1000 MCG/ML 1 ml Injection Once a week for 4 weeks, followed by once a month for 30 day(s) May, Activ e 28-0.8 MG 1 Orally daily No t-Taking Triamcinolone Acetonide 0.025 % 1 application to affec cortney area of the neck Externally Twice a day for 14 Days Not-Taking Zofran 4 mg 1 tab(s) Orally tid prn for 30 day(s) Feb, Active Diclofenac Sodium 1 % as directed Externally Not-Taking Ferrous Sulfate 325 (65 Fe) MG 1 tablet Orally Once a day for 30 day(s) May, Active Amitriptyline HCl 25 MG 1 tablet at bedtime Orally Once a day for 90 Unknown Meclizine HCl 25 MG 1 tablet Orally every 6hrs as needed dizzine ss 10 Apr, 2014 Active Tramadol HCl 50 MG 1 tablet as needed Orally every 6 hrs pr n mdd2 for 7 day(s) Dec, Active Pepcid 20 MG 1 tablet Orally bid for 30 day(s) Active Cymbalta 60 MG 1 capsule Orally Once a day for 90 days Active HydrOXYzine HCl 50 MG 1 tablet as needed Orally Daily for 90 day s Jan, Active PROCEDURES No Information RESULTS No Results REASON FOR VISIT prior auth for neck mri/labs MEDICAL (GENERAL) HISTORY Type Description Date Medical History childhood h/o asthma (no flares since ag e ) Medical History h/o cholelithasis s/p cholecystectomy Medical History h/o kidney stones Medical History obesity Medical History infertility Medical History h/o vitamin b12 deficiency Medical History Marginal ulcers x2 Medical History Optic Neuritis Medical History bladder dysfunction Medical History Miscarriage Medical History Fibromyalgia Surgical History cholecystectomy 2010 Surgical History gastric bypass 2011, 2014 Surgical History endoscopies-multiple Surgical History colonoscopy 2016 Surgical History carpal tunnel surgery 12/21/16 Surgical History Anterior cervical discectomy with fusion - [facility] 03/30/2017 Surgical History left knee arthroscopy 05/2018 Surgical History right knee reoairs 2019 Hospitalization History see surgeries Hospitalization History ulcers 02/16-03/19 Goals Section No Information Health Concerns No Information MEDICAL EQUIPMENT No Information MENTAL STATUS No Information FUNCTIONAL STATUS No Information ASSESSMENTS Encounter Date Diagnosis Assessment Notes Treatment Notes Treatm ent Clinical Notes May, Low vitamin B12 level (ICD-10 - E53.8) Starting vit b12 injections, start once a week for 4 weeks, then once a month. Patient will come to office for first injection. May, Low vitamin D level (ICD-10 - R79.89) Continue low vitamin D, try with food, particularly fatty food to increase absorption May, Elevated platelet count (ICD-10 - R79.89) May, Low iron (ICD-10 - E61.1) Iron mildly low. Starting iron supplement at this time. PLAN OF TREATMENT Medication Medication Name Sig Start Date Stop Date Ferrous Sulfate 325 (65 Fe) MG 1 tablet Orally Once a day fo r 30 day(s) May, Cyanocobalamin 1000 MCG/ML 1 ml Injection Once a week for 4 weeks, followed by once a month for 30 day(s) May, Treatment Notes Assessment Notes Clinical Notes Low vitamin B12 level Starting vit b12 i njections, start once a week for 4 weeks, then once a month. Patient will come to office for first injection. Low vitamin D level Continue low vitamin D, try with food, particularly fatty food to increase absorption Low iron Iron mildly low. Sta rting iron supplement at this time. Next Appt Details Provider Name:AdamKerline Vaca, 2020-07-09 10:30:00 AM, [address] [place], [address], Insurance Providers Payer Name Payer Address Payer Phone Insured Name Patient Relati onship to Insured Coverage Start Date Coverage End Date MEDICARE Part A and B [address] [facility] [address] [place] self MEDICAID [id number] [address] [facility] [id number] [place]
--- OUTSIDE RECORDS SUMMARY | 2020-08-01 12:07 | CCD ---
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 Activ e 008864878 Problem Sacroiliac joint pain M53.3 Active 311646101 Problem Spondylosis without myelopathy or radiculopathy, cervical region M47.812 Active 312606641 Problem Cervicalgia M54.2 Active 34329212 Problem Myalgia M79.1 Active 72702068 Problem Altered mental status, unspecified altered mental stat us type R41.82 Active 499584732 Problem Sacroiliitis, not elsewhere classified M46.1 A ctive 530307532 Problem Obesity, morbid, BMI 40.0-49.9 E66.01 Active 2 36147596 Problem Spondylosis without myelopathy or radicu lopathy, cervicothoracic region M47.813 Active 660038351 Problem Excessive daytime sleepiness G47.19 Active 141 115638176 Problem Spondylosis without myelopathy or radiculopathy, thoracic region M47.814 Active 430555618 Problem Intervertebral disc disorders with radiculopathy , lumbosacral region M51.17 Active 8493945 Problem Protruded lumbar disc M51.26 Active 734276299 Problem Arthritis of knee, left M17.12 Active 06478927 76561207 Problem Other obesity due to excess calories E66.09 Act zeferino 848756532 Problem Vitamin D insufficiency E55.9 Active 28481213 4 Problem Other specified postprocedural states Z98.890 Ac tive 388302498 Problem Anxiety F41.9 Active 65538319 Problem Osteoarthritis of spine with radiculopathy, cervical regio n M47.22 Active 565944178 Problem Fibromyalgia M79.7 Active 046181377 Problem Iron deficiency anemia, unspecified iron deficiency an emia type D50.9 Active 49927558 Problem Cervical disc displacement M50.20 Active 44688 4002 Problem Blood loss anemia D50.0 Active 643125406 Problem Restless leg syndrome G25.81 Active 65591266 Problem Right carpal tunnel syndrome G56.01 Active 293 551644753475 Problem Cervical disc disorder with radiculopathy, cervi cothoracic region M50.13 Active 316027399 Problem Other chronic pain G89.29 Active 74949903 Problem VERONA (generalized anxiety disorder) F41.1 Activ e 87345294 Problem Late period N92.6 Active 04843690 Problem Anxiety about health F41.8 Active 060682884 Problem Other intervertebral disc displacement, lumbosacral region M51.27 Active 92532074 Problem Paresthesias R20.2 Active 88822488 Problem Vaginal bleeding N93.9 Active 367456787 Problem Body mass index (BMI) of 37.0-37.9 in adult Z68.37 Active 630962323 Problem Body mass index (BMI) 45.0-49.9, adult Z68.42 A ctive 226440467 Problem Morbid (severe) obesity due to excess calories E66 .01 Active 707894025 Problem Moderate episode of recurrent major depressive disorder F33.1 Active 073954191 Problem Primary osteoarthritis of right knee M17.11 Act zeferino [id number] ALLERGIES Allergen (clinical drug ingredient) Drug/Non Drug Allergy do cumented on EMR Reaction Allergy Type Onset Date Status pregabalin Lyrica(NDC Code:[address]-12) facial swelling w ithout angioedema Drug Allergy Active omeprazole Omeprazole(NDC Code:[address]-82) angioedema Drug Allergy Active Adhesive Bandages Rash Drug Allergy Activ e clindamycin Clindamycin HCl(NDC Code:[address]-01) Vomit, b urns in "pouch" Drug Allergy Active ibuprofen Ibuprofen(NDC Code:[address]-19) gastric bypass/ulcer s Drug Allergy Active ENCOUNTERS from 1980 to 2020-06-10 Encounter Location Date Provider [facility] [address] [place] [address] May, Lloyd Vaca Right shoulder pain, unspecified chronic ity M25.511 ; Other chronic pain G89.29 ; Cervical disc disorder with radiculopathy, cervicothoracic region M50.13 ; History of gastric bypass Z98.84 and Encounter for immunization Z23 IMMUNIZATIONS Vaccine Route Administration Date Status Influenza [...] Education Language: Question Answer Notes Languages spoken: Vietnamese Advent: Question Answer Notes Advent 33 None Sexual Hx: Question Answer Notes [...] REASON FOR REFERRAL No Information VITAL SIGNS Weight 253 lbs May, Height 60 in May, BMI 49.41 kg/m2 May, Heart Rate 90 /min May, Respiratory Rate 16 /min May, Temperature 98.2 degrees Fahrenheit May, Oximetry 99% May, Blood pressure systolic 118 mm Hg May, Blood pressure diastolic 93 mm Hg May, MEDICATIONS Medication SIG (Take, Route, Frequency, Duration) [...] for 30 day(s) November, Active Saline Nasal [place] 0.65 % 2 sprays in each nostril [...] for 90 day s Jan, Active PROCEDURES from 1980 to 2020-06-10 Procedure Date Ordered Result Body Site Immunization: Flublok Quadrivalent (18 years & older) 0.5mL IM (Influenza) 2020-05-09 N/A RESULTS Component Value Reference Range CBC with Differential Reviewed date:05/15/2020 13:08:46 Interpretation:Normal Performing Lab:[facility], [facility] [address] [facility] [id number] , ,[place] [address] WHITE BLOOD COUNT 7.4 4.0-10.0 RED BLOOD COUNT 4.29 4.00-5.40 HEMOGLOBIN 12.6 12.0-15.5 HEMATOCRIT 40.3 36.0-47.0 MEAN CORPUSCULAR VOLUME 93.9 80.0-96.0 MEAN CORPUSCULAR HEMOGLOBIN 29.4 27.0-33.0 MEAN CORPUSCULAR HGB CONC 31.3 32.0-36.5 RED CELL DISTRIBUTION WIDTH 13.4 11.5-14.5 PLATELET COUNT, AUTOMATED 482 150-450 NEUTROPHILS % 59.9 36.0-66.0 LYMPH % 26.5 24.0-44.0 MONO % 8.8 0.0-5.0 EOS % 3.5 0.0-3.0 BASO % 0.9 0.0-1.0 NEUTROPHILS # 4.4 1.5-8.5 LYMPH # 2.0 1.5-5.0 MONO # 0.7 0.0-0.8 EOS # 0.3 0.0-0.5 BASO # 0.1 0.0-0.2 Comprehensive Metabolic Profile (CMP) Reviewed date:05/15/2020 13:08:46 Interpretation:Normal Performing Lab:[facility] [address] [facility] [address] , [place] [address] GLUCOSE, FASTING 71 70-100 BLOOD UREA NITROGEN 9 7-18 CREATININE FOR GFR 0.65 0.55-1.30 GLOMERULAR FILTRATION RATE > 60.0 >60 SODIUM LEVEL 139 136-145 POTASSIUM SERUM 4.4 3.5-5.1 CHLORIDE LEVEL 106 98-107 CARBON DIOXIDE LEVEL 27 21-32 CALCIUM LEVEL 9.5 8.5-10.1 AST/SGOT 19 7-37 ALT/SGPT 25 12-78 ALKALINE PHOSPHATASE 78 45-117 BILIRUBIN,TOTAL 0.3 0.2-1.0 TOTAL PROTEIN 7.1 6.4-8.2 ALBUMIN 3.7 3.2-5.2 ALBUMIN/GLOBULIN RATIO 1.1 1.2-2.2 HEMOGLOBIN A1c Reviewed date:05/15/2020 13:08:46 Interpretation:Normal Performing Lab:[facility] [address] [facility] [address] , ,[place] [address] HEMOGLOBIN A1c 5.3 ESTIMATED AVERAGE GLUCOSE 105 60-110 VITAMIN B12 LEVEL Reviewed date:05/15/2020 13:08:46 Interpretation:Abnormal Performing Lab:[facility] [address] [facility] [address] , ,[place] [address] VITAMIN B12 LEVEL 246 247-911 TOTAL IRON BINDING CAPACIT Reviewed date:05/15/2020 13:08:46 Interpretation:Normal Performing Lab:[facility] [address] [place] [address] , ,[place] [address] IRON (FE) 49 50-170 TOTAL IRON BINDING CAPACITY 556 250-450 PERCENT SATURATION 8.8 13.2-45.0 VITAMIN D 25-HYDROXY Reviewed date:05/15/2020 13:08:46 Interpretation:Abnormal Performing Lab:[facility] [address] [place] [address] , ,[place] [address] TOTAL 25(OH) VITAMIN D 20.9 30.0-100.0 LIPID PANEL (CARDIAC RISK) Reviewed date:05/15/2020 13:08:46 Interpretation:Normal Performing Lab:[facility] [address] [facility] [address] , ,[place] [address] TRIGLYCERIDES LEVEL 99 <150 CHOLESTEROL LEVEL 186 <200 HDL CHOLESTEROL 69 >40 LDL CHOLESTEROL 97 <100 NON-HDL-C 117 CHOLESTEROL RISK RATIO 2.695 <5 VITAMIN B1 LEVEL WHOLE BLOOD Reviewed date:05/20/2020 09:16:43 Interpretation: Performing Lab:[facility], [facility] [address] [place] [address] , ,[place] [address] VITAMIN B1 LEVEL WHOLE BLOOD 137.8 66.5-200.0 VITAMIN A, RETINOL LEVEL Reviewed date:05/20/2020 09:16:50 Interpretation: Performing Lab:[facility], [facility] [address] [place] [address] , ,[place] [address] VITAMIN A, RETINOL LEVEL 46.8 18.9-57.3 REASON FOR VISIT SHOULDER MRI RESULTS MEDICAL (GENERAL) HISTORY Type Description Date Medical [...] History Anterior cervical discectomy with fusion - [facility] 03/30/2017 Surgical History left knee arthroscopy 05/2018 Surgical History right knee reoairs 2019 Hospitalization History see surgeries Hospitalization History ulcers 02/16-03/19 Goals Section No Information Health Concerns No Information MEDICAL EQUIPMENT No Information MENTAL STATUS No Information FUNCTIONAL STATUS No Information ASSESSMENTS Encounter Date Diagnosis Assessment Notes Treatment Notes Treatm ent Clinical Notes May, Right shoulder pain, unspecified chronicity (ICD -10 - M25.511) Refer patient to physical therapy to see if symptoms improve further. If not can refer to ortho for further evaluation. No rotator cuff tear noted on MRI. Refer to PT in [facility] so closer for patient. May, Other chronic pain (ICD-10 - G89.29) Patient Educated with: FLU Vaccine, Inactivated [id number] (FLU Vaccine, Inactivated [id number].pdf) Patient takes tramadol for chronic pain. Istop below. #: [id number] tramadol hcl 50 mg tablet 147[place], [phone][id number] May, Cervical disc disorder with radiculopathy, cervicothoracic region (ICD-10 - M50.13) Patient follows up with [facility] [facility]. Would like repeat cervical MRI due to increased pain in neck/ arm and increased weakness. After MRI results will call and follow up with ortho. May, History of gastric bypass (ICD-10 - Z98.84) Order CBC and iron and other labs to monitor due to gastric bypass history. May, Encounter for immunization (ICD-10 - Z23) Recommend flu shot. Consent. PLAN OF TREATMENT Medication Medication Name Sig Start Date Stop Date Ferrous Sulfate 325 (65 Fe) MG 1 tablet Orally Once a day fo r 30 day(s) May, Cyanocobalamin 1000 MCG/ML 1 ml Injection Once a week for 4 weeks, followed by once a month for 30 day(s) May, Treatment Notes Assessment Notes Clinical Notes Right shoulder pain, unspecified chronicity Refer patient to physical therapy to see if symptoms improve further. If not can refer to ortho for further evaluation. No rotator cuff tear noted on MRI. Refer to PT in [facility] so closer for patient. Other chronic pain Patient Educated with: FLU V accine, Inactivated [id number] (FLU Vaccine, Inactivated [id number].pdf) Patient takes tramadol for chronic pain. Istop below.#: [id number] /12/2019tramadol hcl [address] [place] [address], [id number] Cervical disc disorder with radiculopathy, cervicothoracic r egion Patient follows up with [place] [facility]. Would like repeat cervical MRI due to increased pain in neck/ arm and increased weakness. After MRI results will call and follow up with ortho. History of gastric bypass Order CBC and iron and other labs to monitor due to gastric bypass history. Encounter for immunization Recommend flu shot. Consent. Treatment Notes Test Name Order Date FERRITIN 2020-06-10 IRON (FE) 2020-06-10 [facility] MRI Spine, Cervical without con 2020-06-10 Next Appt Details 2 mth Reason:shoulder, neck Provider Name:Lloyd Vaca, 2020-07-09 10:30:00 AM, [address] [place], [address], Follow Up:2 mthshoulder, neck Insurance Providers Payer Name Payer Address Payer Phone Insured Name Patient Relati onship to Insured Coverage Start Date Coverage End Date MEDICAID [employer] [address] [facility] [id number] [place] MEDICARE Part A and B [address] [facility] [address] [phone] [place]
[2020-08-01] MEDS ORDERED: propofoL 200 MG/20 ML VIAL As Ordered ONE ×3 (13:52→14:12)
[2020-08-01] MEDS ORDERED: LIDOCAINE 2% 100MG/5ML SDV (FOR ANES.) As Ordered ONE (13:52)
--- NOTE | 2020-08-01 14:29 | ROOR ---
Patient Name: Anjelica Key Procedure Date: 08/01/2020 1:55 PM Date of : 1980 Age: 40 Room: [facility] Gender: Female Note Status: Finalized Procedure: Upper GI endoscopy Indications: Epigastric abdominal pain, Persistent vomiting Providers: Zeb Dennis MD Referring MD: KATIE REESE MD Requesting Provider: Medicines: Monitored Anesthesia Care Complications: No immediate complications. Procedure: Pre-Anesthesia Assessment: - Prior to the procedure, a History and Physical was performed, and patient medications and allergies were reviewed. The patient is competent. The risks and benefits of the procedure and the sedation options and risks were discussed with the patient. All questions were answered and informed consent was obtained. Patient identification and proposed procedure were verified by the physician, the nurse and the anesthesiologist in the procedure room. Mental Status Examination: alert and oriented. Airway Examination: normal oropharyngeal airway and neck mobility. Respiratory Examination: clear to auscultation. CV Examination: normal. Prophylactic Antibiotics: The patient does not require prophylactic antibiotics. Prior Anticoagulants: The patient has taken no previous anticoagulant or antiplatelet agents. ASA Grade Assessment: II - A patient with mild systemic disease. After reviewing the risks and benefits, the patient was deemed in satisfactory condition to undergo the procedure. The anesthesia plan was to use monitored anesthesia care (MAC). Immediately prior to administration of medications, the patient was re-assessed for adequacy to receive sedatives. The heart rate, respiratory rate, oxygen saturations, blood pressure, adequacy of pulmonary ventilation, and response to care were monitored throughout the procedure. The physical status of the patient was re-assessed after the procedure. The Endoscope was introduced through the mouth, and advanced to the second part of duodenum. The upper GI endoscopy was accomplished without difficulty. The patient tolerated the procedure well. Findings: No gross lesions were noted in the entire esophagus. 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 The gastrojejunal anastomosis was characterized by an intact staple line. This was traversed. The eavbj-yz-hmzspnp limb was characterized by congestion and an intact staple line. The jejunojejunal anastomosis was characterized by healthy appearing mucosa. The fjjloaxu-dt-lqewqfe limb was not examined as it could not be found. A staple was found at the anastomosis. Removal was accomplished with a snare. The examined jejunum was normal. Impression: - No gross lesions in esophagus. 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 - A staple was found in the stomach. Removal was successful. - Normal examined jejunum. Recommendation: - Patient has a contact number available for emergencies. The signs and symptoms of potential delayed complications were discussed with the patient. Return to normal activities tomorrow. Written discharge instructions were provided to the patient. - Post gastric bypass diet (small frequent meals and avoid fatty/ fried foods). - Anti-acid reflux diet -- small meals, sit upright atleast 1 hour after meals, avoid fatty/ oily foods and avoid foods that cause reflux. - Continue present medications. - Perform an abdominal ultrasound. - Return to GI clinic in [facility] (address [address], [address], [place] [address]) in 4 -- 6 weeks. Please call GI clinic @ [phone] for apppointment date and time. - Return to primary care physician. Procedure Code(s): --- Professional --- 90616, Esophagogastroduodenoscopy, flexible, transoral; with removal of foreign body(s) Diagnosis Code(s): --- Professional --- Z98.0, Intestinal bypass and anastomosis status T18.2XXA, Foreign body in stomach, initial encounter R10.13, Epigastric pain R11.15, Cyclical vomiting syndrome unrelated to migraine CPT copyright 2019 [employer]. All rights reserved. The codes documented in this report are preliminary and upon stem crusher review may be revised to meet current compliance requirements. Zeb Dennis MD Zeb Dennis MD 08/01/2020 2:29:07 PM Electronically signed by Zeb Dennis MD Number of Addenda: 0 Note Initiated On: 08/01/2020 1:55 PM Estimated Blood Loss: Estimated blood loss was minimal.
[2020-08-01 14:45] VITALS: BP 139/82
== END 2020-08-01 14:56 | disposition home or self-care (01) ==
LOC: M OPP 12:00
PROVIDERS: ATTEND Internal Medicine Gastroenterology
DX: R10.13 Epigastric pain (principal); R11.15 Cyclical vomiting syndrome unrelated to migraine; R11.0 Nausea; T18.2XXA Foreign body in stomach, initial encounter; Z98.0 Intestinal bypass and anastomosis status; I10 Essential (primary) hypertension; M79.7 Fibromyalgia; F41.9 Anxiety disorder, unspecified; F32.9 Major depressive disorder, single episode, unspecified; G43.909 Migraine, unspecified, not intractable, without status migrainosus; G62.9 Polyneuropathy, unspecified; G25.81 Restless legs syndrome; J45.909 Unspecified asthma, uncomplicated; D50.9 Iron deficiency anemia, unspecified; M48.00 Spinal stenosis, site unspecified; M19.90 Unspecified osteoarthritis, unspecified site; K21.9 Gastro-esophageal reflux disease without esophagitis; K58.9 Irritable bowel syndrome, unspecified; Z98.84 Bariatric surgery status; Z88.1 Allergy status to other antibiotic agents; Z88.5 Allergy status to narcotic agent; Z88.6 Allergy status to analgesic agent; Z88.8 Allergy status to other drugs, medicaments and biological substances; Z91.09 Other allergy status, other than to drugs and biological substances; Z79.899 Other long term (current) drug therapy; Z82.49 Family history of ischemic heart disease and other diseases of the circulatory system; Z83.3 Family history of diabetes mellitus; Z80.3 Family history of malignant neoplasm of breast; Z80.0 Family history of malignant neoplasm of digestive organs; Z82.69 Family history of other diseases of the musculoskeletal system and connective tissue; Z80.8 Family history of malignant neoplasm of other organs or systems

== ENCOUNTER → 2020-08-16 | Outpatient (CLI) | payer MEDICARE, MEDICAID ==
[~2020-08-16] MED LIST changes: -NS 1,000 ML IV ONE
--- NOTE | 2020-08-16 10:04 | REP ---
INDICATION: INTERMITTENT EPIGASTRIC PAIN. COMPARISON: Comparison sonography December 24, 2016.. TECHNIQUE: Right upper quadrant sonography is performed. FINDINGS: Scanning through the right upper quadrant of the abdomen demonstrates borderline liver size with a craniocaudal span of 18.0 cm. No focal liver lesion is seen. The gallbladder is surgically absent. Common bile duct is 7 mm which is normal post cholecystectomy. Limited views of pancreas show no abnormality. There is no evidence of ascites. The right kidney measures 10.6 x 4.9 x 3.5 cm in shows no morphologic abnormality. IMPRESSION: Borderline liver size. Post cholecystectomy. Otherwise negative right upper quadrant sonogram. <Electronically signed by Amado Ren > 08/16/20 1000
== END ==
LOC: M RAD 09:20
PROVIDERS: ATTEND Internal Medicine Gastroenterology
DX: R10.13 Epigastric pain (principal); Z90.49 Acquired absence of other specified parts of digestive tract

== ENCOUNTER → 2020-08-21 | Outpatient (CLI) | payer MEDICARE, MEDICAID ==
[~2020-08-21] MED LIST changes: +E-Z-PAQUE 96% w/w SUSP 176GM BTL As Ordered ONE
--- NOTE | 2020-08-21 13:34 | REP ---
INDICATION: INTESTINAL BYPASS STATUS, NAUSEA AND VOMITING. COMPARISON: None TECHNIQUE: This procedure was performed by Hollie Duarte [facility], under the direct supervision of Dr. Ren. Images were reviewed with Dr. Ren prior to dictation. Liquid barium was administered and the barium column was followed through the small bowel to the level of the terminal ileum. FINDINGS: The field service supervisor film shows no organomegaly or pathological masses. The intestinal gas pattern is unremarkable. Small bowel transit time is approximately 50 minutes. During fluoroscopy gentle palpation shows all loops are freely movable and pliable. There is no fixed angulated loops. The small bowel mucosal pattern is normal in course and caliber. There is no transition to suggest a partial small bowel obstruction. Spot filming of the terminal ileum shows it to be unremarkable. IMPRESSION: Unremarkable small bowel follow-through. 0.3 minutes of fluoroscopy time was utilized for this procedure. Some fluoroscopic images are performed with last image hold technology. These images require no additional radiation. <Electronically signed by Hollie Duarte > 08/21/20 1206 <Electronically signed by Amado Ren > 08/21/20 [id number]
== END ==
LOC: M RAD 08:07
PROVIDERS: ATTEND Internal Medicine Gastroenterology
DX: Z98.0 Intestinal bypass and anastomosis status (principal); R11.2 Nausea with vomiting, unspecified

== ENCOUNTER → 2020-12-13 | Outpatient (CLI) | payer MEDICARE, OTHER ==
[~2020-12-13] MED LIST changes: -E-Z-PAQUE 96% w/w SUSP 176GM BTL As Ordered ONE; +GABA-283 PO; -GABA-845 PO; +ISOVUE-300 61% 50ML VIAL As Ordered ONE; +LIDOCAINE 1% MDV 20ML VIAL As Ordered ONE; +TRIAMCINOLONE ACETONIDE SUSP 40 MG/ML VIAL (J3301) As Ordered ONE
--- NOTE | 2020-12-13 18:33 | REP ---
INDICATION: OSTEOARTHRITIS LEFT KNEE. COMPARISON: None. TECHNIQUE: The procedure was performed under the direct supervision of Dr. Fowler. The benefits and risks including but not limited to pain infection bleeding and anaphylaxis were explained to the patient and informed consent was obtained. The left tibiofemoral joint space was localized using fluoroscopic guidance. The skin was prepped and draped in a sterile fashion. 1% lidocaine was used as a local anesthetic. Using fluoroscopic guidance, and last image hold technology, a 22 gauge needle was inserted and advanced into the joint, however, at this time the patient had an anxiety attack and did not want to complete the injection. The needle was then removed. Less than 6 seconds of fluoroscopy time was utilized for this procedure. FINDINGS: None IMPRESSION: Attempted fluoroscopically guided left knee injection. However, the patient had an anxiety attack did not wish to continue with the injection. <Electronically signed by Gregorio Foley > 12/13/20 1521 <Electronically signed by Drew Fowler > 12/13/20 [id number]
== END ==
LOC: M RADPRO 11:00
PROVIDERS: ATTEND Orthopaedic Surgery
DX: M17.12 Unilateral primary osteoarthritis, left knee (principal)
CPT/HCPCS: 20610; 77002; J3301; Q9967

== ENCOUNTER → 2021-04-23 | Outpatient (CLI) | payer MEDICARE, OTHER ==
[~2021-04-23] MED LIST changes: -CYMB60CA3 PO; +CYMB60CA4 PO; -ISOVUE-300 61% 50ML VIAL As Ordered ONE; -KLOR10TA76 PO; -LIDOCAINE 1% MDV 20ML VIAL As Ordered ONE; +POTA-136 PO; -TRIAMCINOLONE ACETONIDE SUSP 40 MG/ML VIAL (J3301) As Ordered ONE
[2021-04-23 15:23] LABS: BASO # 0.1 10^3/uL (0.0-0.2); BASO % 0.9 % (0.0-1.0); EOS # 0.2 10^3/uL (0.0-0.5); EOS % 2.9 % (0.0-3.0); HEMATOCRIT 37.3 % (36.0-47.0); HEMOGLOBIN 11.6 g/dl (12.0-15.5); LYMPH # 2.9 10^3/uL (1.5-5.0); LYMPH % 37.2 % (24.0-44.0); MEAN CORPUSCULAR HEMOGLOBIN 26.5 pg (27.0-33.0); MEAN CORPUSCULAR HGB CONC 31.1 g/dl (32.0-36.5); MEAN CORPUSCULAR VOLUME 85.2 fl (80.0-96.0); MONO # 0.6 10^3/uL (0.0-0.8); MONO % 7.6 % (2.0-8.0); NEUTROPHILS % 51.3 % (36.0-66.0); PLATELET COUNT, AUTOMATED 526 10^3/uL (150-450); RED BLOOD COUNT 4.38 10^6/uL (4.00-5.40); WHITE BLOOD COUNT 7.8 10^3/uL (4.0-10.0)
[2021-04-23 15:50] LABS: HEMOGLOBIN A1c 5.4 %
[2021-04-23 15:57] LABS: ALBUMIN 3.7 GM/DL (3.2-5.2); ALT/SGPT 31 U/L (12-78); BILIRUBIN,TOTAL 0.3 MG/DL (0.2-1.0); BLOOD UREA NITROGEN 10 MG/DL (7-18); CALCIUM LEVEL 9.1 MG/DL (8.5-10.1); CARBON DIOXIDE LEVEL 29 MEQ/L (21-32); CHLORIDE LEVEL 108 MEQ/L (98-107); CHOLESTEROL LEVEL 155 MG/DL (<200); FERRITIN 6 NG/ML (8-252); GLOMERULAR FILTRATION RATE > 60.0 (>58); GLUCOSE, FASTING 89 MG/DL (70-100); HDL CHOLESTEROL 63 MG/DL (>40); IRON (FE) 36 UG/DL (50-170); LDL CHOLESTEROL 79 MG/DL (<100); NON-HDL-C 92 MG/DL; PERCENT SATURATION 6.8 % (13.2-45.0); POTASSIUM SERUM 4.6 MEQ/L (3.5-5.1); SODIUM LEVEL 141 MEQ/L (136-145); TOTAL 25(OH) VITAMIN D 31.7 NG/ML (30.0-100.0); TOTAL IRON BINDING CAPACITY 527 UG/DL (250-450); TOTAL PROTEIN 7.2 GM/DL (6.4-8.2); TRIGLYCERIDES LEVEL 67 MG/DL (<150)
== END ==
LOC: M PLALAB 12:52
PROVIDERS: ATTEND Family Medicine
DX: Z98.84 Bariatric surgery status (principal); Z79.899 Other long term (current) drug therapy

== ENCOUNTER → 2021-11-19 | Outpatient (CLI) | payer MEDICARE, OTHER ==
[~2021-11-19] MED LIST changes: +CHOL239. PO; -CHOL4POW PO; -PHEN15CA PO; +PHEN15CA6 PO
== END ==
LOC: M WHC 11:04
PROVIDERS: ATTEND Family Medicine
DX: N94.10 Unspecified dyspareunia (principal)

== ENCOUNTER → 2021-12-22 | Outpatient (CLI) | payer MEDICARE, OTHER | LOC: M WUC 12:42 | PROVIDERS: ATTEND Family Medicine | DX: M25.532 Pain in left wrist (principal); M79.642 Pain in left hand ==

== ENCOUNTER → 2022-01-15 | Outpatient (CLI) | payer MEDICARE, OTHER | LOC: M WHC 14:15 | PROVIDERS: ATTEND Obstetrics & Gynecology Obstetrics | DX: Z12.31 Encounter for screening mammogram for malignant neoplasm of breast (principal); Z80.3 Family history of malignant neoplasm of breast; Z80.0 Family history of malignant neoplasm of digestive organs ==

== ENCOUNTER → 2022-01-15 | Outpatient (CLI) | payer MEDICARE, OTHER ==
[2022-01-15 17:52] LABS: FREE T4 0.93 NG/DL (0.76-1.46); THYROID STIMULATING HORMONE 1.76 uIU/ML (0.358-3.740)
[2022-01-15 19:37] LABS: PROLACTIN 10.1 NG/ML
== END ==
LOC: M PLALAB 14:26
PROVIDERS: ATTEND Obstetrics & Gynecology Obstetrics
DX: Z01.419 Encounter for gynecological examination (general) (routine) without abnormal findings (principal); N92.6 Irregular menstruation, unspecified

== ENCOUNTER → 2022-01-21 | Outpatient (REF) | payer MEDICARE, OTHER ==
[2022-01-21 16:45] LABS: HCG, SERUM QUALITATIVE NEGATIVE (NEGATIVE)
== END ==
LOC: M LABWUC 16:00
PROVIDERS: ATTEND Internal Medicine Cardiovascular Disease
DX: R07.89 Other chest pain (principal)

== ENCOUNTER → 2022-11-25 | Outpatient (CLI) | payer MEDICARE, OTHER ==
[2022-11-25 13:56] LABS: HCG, SERUM QUALITATIVE POSITIVE (NEGATIVE)
[2022-11-25 14:29] LABS: HCG, SERUM QUANTITATIVE 5805.9 MIU/ML (<4.2)
== END ==
LOC: M WUC 10:57
PROVIDERS: ATTEND Family Medicine
DX: Z34.90 Encounter for supervision of normal pregnancy, unspecified, unspecified trimester (principal)

== ENCOUNTER → 2022-11-25 | Outpatient (CLI) | payer MEDICARE, OTHER ==
[2022-11-25 13:41] LABS: BASO # 0.1 10^3/uL (0.0-0.2); BASO % 1.2 % (0.0-1.0); EOS # 0.3 10^3/uL (0.0-0.5); HEMATOCRIT 41.1 % (36.0-47.0); HEMOGLOBIN 13.1 g/dl (12.0-15.5); LYMPH # 2.8 10^3/uL (1.5-5.0); LYMPH % 33.7 % (24.0-44.0); MEAN CORPUSCULAR HEMOGLOBIN 30.8 pg (27.0-33.0); MEAN CORPUSCULAR HGB CONC 31.9 g/dl (32.0-36.5); MEAN CORPUSCULAR VOLUME 96.5 fl (80.0-96.0); MONO # 0.6 10^3/uL (0.0-0.8); MONO % 7.1 % (2.0-8.0); NEUTROPHILS # 4.4 10^3/uL (1.5-8.5); NEUTROPHILS % 53.8 % (36.0-66.0); PLATELET COUNT, AUTOMATED 453 10^3/uL (150-450); RED BLOOD COUNT 4.26 10^6/uL (4.00-5.40); WHITE BLOOD COUNT 8.3 10^3/uL (4.0-10.0)
[2022-11-25 14:04] LABS: ALBUMIN 3.7 G/DL (3.2-5.2); ALKALINE PHOSPHATASE 67 U/L (46-116); ALT/SGPT 25 U/L (7.0-40); AST/SGOT 22 U/L (<34); BILIRUBIN,TOTAL 0.3 MG/DL (0.3-1.2); BLOOD UREA NITROGEN 9 MG/DL (9-23); CALCIUM LEVEL 8.9 MG/DL (8.5-10.1); CARBON DIOXIDE LEVEL 22 MMOL/L (20-31); CHLORIDE LEVEL 108 MMOL/L (98-107); CREATININE FOR GFR 0.59 MG/DL (0.55-1.30); GLOMERULAR FILTRATION RATE > 60.0 (>58); GLUCOSE, FASTING 89 MG/DL (60-100); POTASSIUM SERUM 3.9 MMOL/L (3.5-5.1); SODIUM LEVEL 141 MMOL/L (136-145); TOTAL PROTEIN 6.5 G/DL (5.7-8.2)
[2022-11-25 14:08] LABS: FOLATE > 24.00 NG/ML (>5.4)
[2022-11-25 14:09] LABS: VITAMIN B12 LEVEL 719 PG/ML (211-911)
[2022-11-29 21:06] LABS: VITAMIN B1 LEVEL WHOLE BLOOD 153.4 nmol/L (66.5-200.0); VITAMIN B6,PYRIDOXAL PHOSPHATE 33.5 ug/L (3.4-65.2); VITAMIN E(ALPHA TOCOPHEROL) 6.3 mg/L (7.0-25.1); VITAMIN E(GAMMA TOCOPHEROL) 1.3 mg/L (0.5-5.5)
== END ==
LOC: M WUC 10:53
PROVIDERS: ATTEND Psychiatry & Neurology Neurology
DX: Z34.90 Encounter for supervision of normal pregnancy, unspecified, unspecified trimester (principal); E53.8 Deficiency of other specified B group vitamins; E51.9 Thiamine deficiency, unspecified; E56.0 Deficiency of vitamin E; R20.0 Anesthesia of skin; R51.9 Headache, unspecified

== ENCOUNTER → 2022-11-27 | Outpatient (CLI) | payer MEDICARE, OTHER | LOC: M WUC 13:20 | PROVIDERS: ATTEND Family Medicine | DX: Z34.90 Encounter for supervision of normal pregnancy, unspecified, unspecified trimester (principal) ==

== ENCOUNTER → 2022-12-23 | Outpatient (CLI) | payer MEDICARE, OTHER ==
[2022-12-23 14:19] LABS: HEMATOCRIT 40.9 % (36.0-47.0); HEMOGLOBIN 13.3 g/dl (12.0-15.5); MEAN CORPUSCULAR HEMOGLOBIN 31.3 pg (27.0-33.0); MEAN CORPUSCULAR HGB CONC 32.5 g/dl (32.0-36.5); MEAN CORPUSCULAR VOLUME 96.2 fl (80.0-96.0); PLATELET COUNT, AUTOMATED 418 10^3/uL (150-450); RED BLOOD COUNT 4.25 10^6/uL (4.00-5.40); WHITE BLOOD COUNT 7.5 10^3/uL (4.0-10.0)
[2022-12-23 14:23] LABS: FOLATE > 24.00 NG/ML (>5.4); TOTAL 25(OH) VITAMIN D 26.4 NG/ML (20.0-100.0); VITAMIN B12 LEVEL 443 PG/ML (211-911)
[2022-12-23 14:53] LABS: HIV 1&2 SCREEN NEGATIVE (NEGATIVE)
[2022-12-23 15:02] LABS: HEPATITIS C VIRUS ABY INDEX 0.07 INDEX (<0.8)
[2022-12-23 15:44] LABS: HEMOGLOBIN A1c 4.8 % (4.0-6.0)
[2022-12-23 15:45] LABS: GC DNA AMPLIFICATION NEGATIVE (NEGATIVE)
== END ==
LOC: M PLALAB 10:39
PROVIDERS: ATTEND Advanced Practice Midwife
DX: Z34.81 Encounter for supervision of other normal pregnancy, first trimester (principal); Z79.899 Other long term (current) drug therapy

== ENCOUNTER → 2023-02-26 | Outpatient (REF) | payer MEDICARE, OTHER ==
[~2023-02-26] MED LIST changes: -AMIT25TA17 PO; +AMIT25TA19 PO; -GABA-283 PO; +GABA-284 PO; -ROPI1TAB3 PO; +ROPI1TAB73 PO
[2023-02-26 14:33] LABS: CREATININE,RANDOM URINE 13.3 MG/DL; TOTAL PROTEIN,RANDOM URINE < 6.0 MG/DL (0.0-14.0)
== END ==
LOC: M PLALAB 08:52
PROVIDERS: ATTEND Obstetrics & Gynecology
DX: O16.2 Unspecified maternal hypertension, second trimester (principal); Z3A.00 Weeks of gestation of pregnancy not specified

== ENCOUNTER → 2023-03-11 | Outpatient (CLI) | payer MEDICARE, OTHER ==
[~2023-03-11] MED LIST changes: +MECL-209 PO; -MECL1TAB31 PO; -MISO100T22 PO; +MISO100T32 PO; -MISO200T56 PO; +MISO200T83 PO
== END ==
LOC: M WHC 10:36
PROVIDERS: ATTEND Obstetrics & Gynecology
DX: O09.512 Supervision of elderly primigravida, second trimester (principal)

== ENCOUNTER → 2023-04-15 | Outpatient (CLI) | payer MEDICARE, OTHER | LOC: M WHC 10:48 | PROVIDERS: ATTEND Advanced Practice Midwife | DX: Z34.82 Encounter for supervision of other normal pregnancy, second trimester (principal); Z3A.25 25 weeks gestation of pregnancy ==

== ENCOUNTER → 2023-05-06 | Outpatient (CLI) | payer MEDICARE, MEDICAID ==
[2023-05-06 14:08] LABS: FOLATE > 24.00 NG/ML (>5.4)
[2023-05-06 14:09] LABS: TOTAL 25(OH) VITAMIN D 37.4 NG/ML (20.0-100.0); VITAMIN B12 LEVEL 566 PG/ML (211-911)
== END ==
LOC: M PLALAB 11:03
PROVIDERS: ATTEND Advanced Practice Midwife
DX: Z34.82 Encounter for supervision of other normal pregnancy, second trimester (principal); Z79.899 Other long term (current) drug therapy

== ENCOUNTER → 2023-05-20 | Outpatient (CLI) | payer MEDICARE, MEDICAID ==
[2023-05-20 15:46] LABS: HEMATOCRIT 39.6 % (36.0-47.0); HEMOGLOBIN 13.2 g/dl (12.0-15.5); MEAN CORPUSCULAR HEMOGLOBIN 31.6 pg (27.0-33.0); MEAN CORPUSCULAR HGB CONC 33.3 g/dl (32.0-36.5); MEAN CORPUSCULAR VOLUME 94.7 fl (80.0-96.0); PLATELET COUNT, AUTOMATED 380 10^3/uL (150-450); RED BLOOD COUNT 4.18 10^6/uL (4.00-5.40); WHITE BLOOD COUNT 10.7 10^3/uL (4.0-10.0)
[2023-05-20 17:13] LABS: CHLAMYDIA DNA AMPLIFICATION NEGATIVE (NEGATIVE); GC DNA AMPLIFICATION NEGATIVE (NEGATIVE)
== END ==
LOC: M PLALAB 13:42
PROVIDERS: ATTEND Advanced Practice Midwife
DX: Z34.82 Encounter for supervision of other normal pregnancy, second trimester (principal); Z11.3 Encounter for screening for infections with a predominantly sexual mode of transmission

== ENCOUNTER → 2023-05-31 | Outpatient (CLI) | payer MEDICARE, MEDICAID | LOC: M WHC 09:57 | PROVIDERS: ATTEND Advanced Practice Midwife | DX: O99.843 Bariatric surgery status complicating pregnancy, third trimester (principal); O09.523 Supervision of elderly multigravida, third trimester; Z3A.31 31 weeks gestation of pregnancy ==

== ENCOUNTER → 2023-06-23 | Outpatient (REF) | payer MEDICARE, OTHER | LOC: M PLALAB 12:19 | PROVIDERS: ATTEND Obstetrics & Gynecology | DX: Z36.85 Encounter for antenatal screening for Streptococcus B (principal); O09.523 Supervision of elderly multigravida, third trimester; Z3A.00 Weeks of gestation of pregnancy not specified ==

== ENCOUNTER → 2023-06-30 | Outpatient (CLI) | payer MEDICARE, OTHER | LOC: M WHC 10:05 | PROVIDERS: ATTEND Advanced Practice Midwife | DX: O09.523 Supervision of elderly multigravida, third trimester (principal); O99.843 Bariatric surgery status complicating pregnancy, third trimester; Z3A.36 36 weeks gestation of pregnancy ==

== ENCOUNTER 2023-07-14 15:57 | Inpatient (IN) | payer MEDICARE, OTHER, MEDICAID ==
[~2023-07-14] VITALS: Ht 152.4 cm; Wt 109.0 kg
[2023-07-14] VITALS (23 sets, daily range): BP systolic 118–166; BP diastolic 60–92
[2023-07-14] MEDS ORDERED: PREN1CHW6 PO (16:18)
[2023-07-14] MEDS ORDERED: OMEG350C PO (16:18)
[2023-07-14] MEDS ORDERED: SUPETAB56 PO (16:18)
[2023-07-14] MEDS ORDERED: VITA-148 PO (16:18)
[2023-07-14] MEDS ORDERED: GNP250TA9 PO (16:18)
[2023-07-14] MEDS ORDERED: TRANEXAMIC ACID INJection 1,000 MG in NS 100 ML IV PRN (17:00)
[2023-07-14] MEDS ORDERED: OXYTOCIN DRIP 30 UNITS in IV 1 EA IV SCH (17:00)
[2023-07-14] MEDS ORDERED: LIDOCAINE 1% MDV 20ML VIAL INFIL PRN (17:00)
[2023-07-14] MEDS ORDERED: OXYTOCIN DRIP 30 UNITS in IV 1 EA IV PRN ×4 (17:00)
[2023-07-14] MEDS ORDERED: METHYLERGONOVINE MALEATE 0.2MG/ML 1ML VIAL IM PRN (17:00)
[2023-07-14] MEDS ORDERED: OXYTOCIN INJ 10UNITS/ML 1ML VIAL IM PRN (17:00)
[2023-07-14] MEDS ORDERED: CARBOPROST TROMETHAMINE 250 MCG/ML AMP IM PRN (17:00)
[2023-07-14] MEDS: LR 1,000 ML IV SCH ×2 (17:47→21:12)
[2023-07-14 17:54] LABS: HEMOGLOBIN 13.3 g/dl (12.0-15.5); MEAN CORPUSCULAR HEMOGLOBIN 31.5 pg (27.0-33.0); MEAN CORPUSCULAR HGB CONC 34.1 g/dl (32.0-36.5); MEAN CORPUSCULAR VOLUME 92.4 fl (80.0-96.0); PLATELET COUNT, AUTOMATED 358 10^3/uL (150-450); RED BLOOD COUNT 4.22 10^6/uL (4.00-5.40); WHITE BLOOD COUNT 12.9 10^3/uL (4.0-10.0)
[2023-07-14] MEDS ORDERED: EPIDURAL/PCA KEYS XX PRN (20:35)
[2023-07-14] MEDS ORDERED: NALOXONE INJ 0.4MG/1ML VIAL IV PRN (20:35)
[2023-07-14] MEDS ORDERED: diphenhydrAMINE 50MG/ML VIAL IV PRN (20:35)
[2023-07-14] MEDS ORDERED: ONDANSETRON 4MG 2ML VIAL IV PRN (20:35)
[2023-07-14] MEDS ORDERED: ePHEDrine SULFATE 25 MG/5 ML(5MG/ML) SYRINGE IVP PRN (20:35)
[2023-07-14] MEDS ORDERED: FENTANYL/ROPIVACAINE/NACL BAG 100 ML EPIDURAL SCH (20:35)
[2023-07-14] MEDS ORDERED: LR 500 ML IV PRN (20:35)
[2023-07-15] VITALS (28 sets, daily range): BP systolic 111–162; BP diastolic 54–78; O2SAT 97
[2023-07-15] MEDS ORDERED: RHOGAM 300MCG (1500IU) INJ IM SCH (05:45)
[2023-07-15] MEDS ORDERED: OXYTOCIN DRIP 30 UNITS in IV 1 EA IV SCH (05:45)
[2023-07-15] MEDS ORDERED: METHYLERGONOVINE MALEATE 0.2 MG TAB PO PRN (05:45)
[2023-07-15] MEDS ORDERED: ACETAMINOPHEN TAB 650MG DOSE (2X325MG) PO PRN (05:45)
[2023-07-15] MEDS: PRENATAL VITAMINS CHEWABLE TABLET PO SCH (08:05)
[2023-07-15] MEDS: DOCUSATE SODIUM 100MG CAPSULE PO PRN (08:05)
[2023-07-15] MEDS: ACETAMINOPHEN 500 MG TAB PO PRN ×2 (08:05→18:08)
[2023-07-15] MEDS: DIBUCAINE 1% OINTMENT 30GM TOP PRN (18:08)
[2023-07-15] MEDS: KETOROLAC 30 MG/ML 1ML VIAL IV SCH (22:59)
[2023-07-15] MEDS: ANUSOL HC CREAM 30GM TOP PRN (23:00)
[2023-07-16] MEDS: KETOROLAC 30 MG/ML 1ML VIAL IV SCH ×2 (05:00→10:02)
[2023-07-16 06:00] VITALS: BP 119/63; O2SAT 97
[2023-07-16] MEDS: PRENATAL VITAMINS CHEWABLE TABLET PO SCH (10:02)
[2023-07-16 18:00] VITALS: BP 141/77; O2SAT 98
[2023-07-16] MEDS: DIBUCAINE 1% OINTMENT 30GM TOP PRN (19:47)
[2023-07-16] MEDS: ACETAMINOPHEN 500 MG TAB PO PRN (19:47)
[2023-07-16] MEDS: ANUSOL HC CREAM 30GM TOP PRN (19:47)
[2023-07-16] MEDS: DOCUSATE SODIUM 100MG CAPSULE PO PRN (20:06)
[2023-07-17 06:00] VITALS: BP 118/61
[2023-07-17] MEDS: PRENATAL VITAMINS CHEWABLE TABLET PO SCH (08:35)
[2023-07-17] MEDS ORDERED: MEASLES,MUMPS,RUBELLA VACCINE INJ (MMR-II) SC.IMMUN ONE (09:00)
== END 2023-07-17 11:30 | disposition home or self-care (01) | DRG 807 ==
LOC: M LDO 15:57 → M LDI 16:50 → M OBS 07-15 09:05
PROVIDERS: ADMIT Advanced Practice Midwife; ATTEND Advanced Practice Midwife
PROC: 3E033VJ Introduction of Other Hormone into Peripheral Vein, Percutaneous Approach (ICD-10-PCS; 2023-07-14)
PROC: 10E0XZZ Delivery of Products of Conception, External Approach (ICD-10-PCS; principal; 2023-07-15)
PROC: 0KQM0ZZ Repair Perineum Muscle, Open Approach (ICD-10-PCS; 2023-07-15)
DX: O42.02 Full-term premature rupture of membranes, onset of labor within 24 hours of rupture (principal); Z37.0 Single live birth; Z3A.38 38 weeks gestation of pregnancy; Z88.8 Allergy status to other drugs, medicaments and biological substances; Z88.5 Allergy status to narcotic agent; Z79.899 Other long term (current) drug therapy; O09.523 Supervision of elderly multigravida, third trimester; O70.1 Second degree perineal laceration during delivery

== ENCOUNTER → 2023-09-07 | Outpatient (CLI) | payer MEDICARE, OTHER, MEDICAID ==
[~2023-09-07] MED LIST changes: +GNP250TA9 PO; +OMEG350C PO; +PREN1CHW6 PO; +SUPETAB56 PO; +VITA-148 PO
== END ==
LOC: M SOG 08:09
PROVIDERS: ATTEND Orthopaedic Surgery Hand Surgery
DX: M79.644 Pain in right finger(s) (principal); Z53.9 Procedure and treatment not carried out, unspecified reason

== ENCOUNTER 2023-12-09 08:00 | Day surgery (SDC) | payer MEDICARE, MEDICAID ==
[~2023-12-09] VITALS: Ht 152.4 cm; Wt 106.8 kg
[~2023-12-09 08:00] MED LIST changes: +DICL100G10 TOP; +DULO1CAP6 PO; +IRON65TA2 PO; +LIDO76.52 TOP; +MAPA500C PO; +ONDA-282 PO; -ONDA4TAB6 PO; +THERTAB52 PO; +TIZA10TA PO; +VENTAER INH; +XALA0.007 OU
[2023-12-09] MEDS ORDERED: LIDOCAINE W/EPINEPHRINE 1% 20ML VIAL As Ordered ONE (08:07)
[2023-12-09] MEDS ORDERED: SODIUM BICARBONATE 8.4% INJ 50MEQ 50ML VIAL As Ordered ONE (08:08)
[2023-12-09 09:50] VITALS: BP 127/58; TEMP 97.1; O2SAT 96
== END 2023-12-09 10:05 | disposition home or self-care (01) ==
LOC: M SDC 08:00
PROVIDERS: ATTEND Orthopaedic Surgery Hand Surgery
DX: M65.4 Radial styloid tenosynovitis [de Quervain] (principal); I10 Essential (primary) hypertension; K21.9 Gastro-esophageal reflux disease without esophagitis; G25.81 Restless legs syndrome; Z79.899 Other long term (current) drug therapy; Z88.1 Allergy status to other antibiotic agents; Z88.5 Allergy status to narcotic agent; Z88.8 Allergy status to other drugs, medicaments and biological substances; Z88.6 Allergy status to analgesic agent

== ENCOUNTER → 2023-12-16 | Outpatient (CLI) | payer MEDICARE, MEDICAID | LOC: M PLAIMG 10:25 | PROVIDERS: ATTEND Family Medicine | DX: M50.13 Cervical disc disorder with radiculopathy, cervicothoracic region (principal); Z98.1 Arthrodesis status; Z87.81 Personal history of (healed) traumatic fracture ==

== ENCOUNTER 2024-02-01 11:41 | Day surgery (SDC) | payer MEDICARE, MEDICAID ==
[~2024-02-01] VITALS: Ht 152.4 cm; Wt 103.9 kg
[~2024-02-01 11:41] MED LIST changes: +NS 1,000 ML IV ONE
[2024-02-01] MEDS ORDERED: propofoL 200 MG/20 ML VIAL As Ordered ONE (11:46)
[2024-02-01] MEDS ORDERED: LIDOCAINE 2% 100MG/5ML SDV (FOR ANES.) As Ordered ONE (11:46)
[2024-02-01 13:51] VITALS: TEMP 97.4
[2024-02-01 14:11] VITALS: BP 128/85; O2SAT 98
== END 2024-02-01 14:24 | disposition home or self-care (01) ==
LOC: M OPP 11:41
PROVIDERS: ATTEND Internal Medicine Gastroenterology
DX: K22.89 Other specified disease of esophagus (principal); K20.90 Esophagitis, unspecified without bleeding; Z98.0 Intestinal bypass and anastomosis status; R13.10 Dysphagia, unspecified; Z87.891 Personal history of nicotine dependence; Z79.1 Long term (current) use of non-steroidal anti-inflammatories (NSAID); Z79.51 Long term (current) use of inhaled steroids; Z79.83 Long term (current) use of bisphosphonates; Z79.891 Long term (current) use of opiate analgesic; Z79.899 Other long term (current) drug therapy; Z88.1 Allergy status to other antibiotic agents; Z88.4 Allergy status to anesthetic agent; Z88.5 Allergy status to narcotic agent; Z88.6 Allergy status to analgesic agent; Z91.048 Other nonmedicinal substance allergy status

== ENCOUNTER → 2024-03-28 | Outpatient (CLI) | payer MEDICARE, MEDICAID ==
[~2024-03-28] MED LIST changes: +BARIUM SULFATE 700 MG TABLET (E-Z-DISK) As Ordered ONE; +E-Z-PAQUE 96% w/w SUSP 176GM BTL As Ordered ONE; -NS 1,000 ML IV ONE; +VARIBAR NECTAR 40% w/v 240ML SUSP BTL As Ordered ONE; +VARIBAR PUDDING 40% w/v 230ML TUBE As Ordered ONE
== END ==
LOC: M RAD 11:21
PROVIDERS: ATTEND Nurse Practitioner Family
DX: R13.10 Dysphagia, unspecified (principal)

== ENCOUNTER → 2024-07-10 | Outpatient (CLI) | payer MEDICARE, MEDICAID ==
[~2024-07-10] MED LIST changes: -BARIUM SULFATE 700 MG TABLET (E-Z-DISK) As Ordered ONE; -E-Z-PAQUE 96% w/w SUSP 176GM BTL As Ordered ONE; -VARIBAR NECTAR 40% w/v 240ML SUSP BTL As Ordered ONE; -VARIBAR PUDDING 40% w/v 230ML TUBE As Ordered ONE
== END ==
LOC: M WUC 11:15
PROVIDERS: ATTEND Family Medicine
DX: J18.9 Pneumonia, unspecified organism (principal)

== ENCOUNTER → 2025-03-26 | Outpatient (CLI) | payer MEDICARE, MEDICAID ==
[~2025-03-26] MED LIST changes: +TOPI-14 PO; -TOPI200T7 PO
== END ==
LOC: M PLAIMG 10:12
DX: M79.672 Pain in left foot (principal)

== ENCOUNTER → 2025-03-26 | Outpatient (CLI) | payer MEDICARE, MEDICAID | LOC: M WHC 10:08 | PROVIDERS: ATTEND Advanced Practice Midwife | DX: Z12.31 Encounter for screening mammogram for malignant neoplasm of breast (principal); R92.313 Mammographic fatty tissue density, bilateral breasts ==

== ENCOUNTER → 2025-05-28 | Outpatient (CLI) | payer MEDICARE, MEDICAID | LOC: M EKG 10:22 | PROVIDERS: ATTEND Internal Medicine Cardiovascular Disease | DX: R00.2 Palpitations (principal) ==